=== PATIENT | female | born 1965 ===

== ENCOUNTER 2024-07-31 15:53 | Inpatient (IN) | payer MEDICAID ==
[2024-07-31] VITALS (12 sets, daily range): BP systolic 136–212; BP diastolic 62–117
[~2024-07-31] VITALS: Ht 165.1 cm; Wt 67.6 kg
--- OUTSIDE RECORDS SUMMARY | 2024-07-31 16:00 | XMS ---
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 No recent Security Events currently on file CRITERIA MET - 6 ED Visits in 6 Months - [facility] - 2 Visits in 30 Days CARE PROVIDERS Sarah Prajapati Community Health Worker 12/30/2022-Current PHONE: [phone] -, [facility]ist: Call Center Rn Current [place] PHONE: [phone] -, [facility]- Dentist: Call Center Rn Current [facility] PHONE: [phone] -, [facility]- Dentist: Call Center Rn Current [facility] PHONE: [phone] KEILA HARVEY Physician [place] Operator Current PHONE: [phone] MICHAEL LUTZ Universal Worker Assisted Living/Clinical Pharmacy Technician [facility] TEAM PHONE: [phone] THUAN DORAN [facility] Current PHONE: Unknown On[facility]er has no Care Guidelines for this patient. Góme[facility] VISIT COUNT (12 MO.) 14 [facility] 3 [facility] [address] [facility] TOTAL 19 NOTE: Visits indicate total known visits. ED/UCC VISIT TRACKING (12 MO.) 07/31/2024 15:54 [facility] TYPE: Emergency COMPLAINT: - ABDOMINAL PAIN 07/27/2024 14:57 [facility] TYPE: Emergency COMPLAINT: - FOOT ISSUES 06/25/2024 08:12 [facility] TYPE: Emergency DIAGNOSES: - Noninfective gastroenteritis and colitis, unspecified - Rash and other nonspecific skin eruption - RASH ON BODY 04/26/2024 15:05 [facility] [place]: Emergency DIAGNOSES: - Essential (primary) hypertension - Localized edema - HBP, leg swelling - Hypertension - Leg Swelling 04/22/2024 15:54 [facility] [place] TYPE: Emergency DIAGNOSES: - Localized edema - leg swelling 04/16/2024 19:48 [facility] [place] TYPE: Emergency DIAGNOSES: - Acute kidney failure, unspecified - Adverse effect of other antihypertensive drugs, initial encounter - Essential (primary) hypertension - Hyperkalemia - +covid test and swelling in both legs - Hypertension - Leg Swelling 03/27/2024 11:24 [facility] ([facility] [place] TYPE: Emergency DIAGNOSES: - Blepharochalasis right lower eyelid - Blepharochalasis right upper eyelid - Hordeolum externum right upper eyelid - Eye Pain - eye swelling 03/13/2024 17:35 [facility] [place] ([place]) TYPE: Emergency DIAGNOSES: - Acute kidney failure, unspecified - Acute kidney failure, unspecified - Cellulitis of left lower limb - Cellulitis of right lower limb - Essential (primary) hypertension - facial swelling 03/11/2024 11:41 [facility] [place] ([place]) TYPE: Emergency DIAGNOSES: - Adverse effect of unspecified drugs, medicaments and biological substances, initial encounter - hives - Urticaria 03/06/2024 18:55 [facility] ([facility] [place] TYPE: Emergency DIAGNOSES: - rash on right inner thigh 03/04/2024 18:55 [facility] [place] TYPE: Emergency DIAGNOSES: - Local infection of the skin and subcutaneous tissue, unspecified - Localized edema - Leg Swelling - rt foot swelling 02/25/2024 11:04 [facility] ([place] TYPE: Emergency DIAGNOSES: - Diarrhea, unspecified - Blood In Stool - dark stool 02/23/2024 18:42 [facility] ([place] TYPE: Emergency DIAGNOSES: - Altered Mental Status - poss blood sugar issues 02/13/2024 13:54 [facility] ([place] TYPE: Emergency DIAGNOSES: - Acute kidney failure, unspecified - Diarrhea, unspecified - high bp - Hypertension - Medication Refill 01/24/2024 11:26 [facility] [place] TYPE: Emergency DIAGNOSES: - Hyperkalemia - Other fatigue - Other malaise - bp issues - Diarrhea (Adult) 01/16/2024 12:40 [facility] [place] TYPE: Emergency DIAGNOSES: - blood pressure check - Medical Problem (Re-evaluation) 01/09/2024 12:08 [facility] [place] TYPE: Emergency DIAGNOSES: - Epigastric pain - Hypertensive urgency - Nausea with vomiting, unspecified - Retention of urine, unspecified - abd pain, vomiting, diarrhea - Abdominal Pain - Hypertension 12/19/2023 17:11 [facility] [place] TYPE: Emergency DIAGNOSES: - Other psychoactive substance abuse, uncomplicated - VOMITING TIRED 09/03/2023 22:18 [facility] [place] TYPE: Emergency DIAGNOSES: - Abrasion, left knee, initial encounter - Abrasion, right knee, initial encounter - Contusion of right knee, initial encounter - Dizziness and giddiness - Other psychoactive substance abuse, uncomplicated - Dizziness INPATIENT VISIT TRACKING (12 MO.) 04/16/2024 19:48 [facility] TYPE: Medical Surgical DIAGNOSES: - Acute kidney failure, unspecified - Adverse effect of other antihypertensive drugs, initial encounter - Essential (primary) hypertension - Hyperkalemia - Hypertensive urgency 01/09/2024 12:08 [facility] [place] TYPE: Medical Surgical DIAGNOSES: - Chronic viral hepatitis C - Diarrhea, unspecified - Epigastric pain - Essential (primary) hypertension - Hypertensive urgency - roasterman (current) use of insulin - Nausea with vomiting, unspecified - Retention of urine, unspecified - Type 2 diabetes mellitus with hyperglycemia [email or web address]
[2024-07-31] MEDS ORDERED: INSULIN SYRING1 EA30 (16:41)
[2024-07-31] MEDS ORDERED: NIFEDIPINE ER30 M1 PO (16:41)
[2024-07-31 17:43] LABS: EOSINOPHILS 1.7 % (0-6); HEMATOCRIT 30.4 % (35.0-50.0); HEMOGLOBIN 9.9 g/dL (12.0-18.0); LYMPHOCYTES 13.1 % (24-44); MCH 29.4 (27-36); MCHC 32.7 g/dl (30-36); MCV 90.1 fl (81-99); MONOCYTES 7.2 % (0-12); PLATELET COUNT 362 K/uL (140-440); RBC 3.37 M/ul (4.3-5.7); RDW 16.7 (10.5-15.0)
[2024-07-31 18:09] LABS: ALBUMIN 1.1 g/dL (3.4-5.0); ALBUMIN/GLOBULIN RATIO 0.22 (1.1-2.4); ANION GAP 17.5 (7-21); BILIRUBIN, TOTAL 0.2 mg/dL (0.2-1.0); BUN/CREATININE RATIO 16.91 (6.0-28.6); CALCIUM 8.1 mg/dL (8.5-10.1); CREATININE, SERUM 2.66 mg/dL (0.55-1.02); POTASSIUM 4.5 mmol/L (3.5-5.1); PROTEIN, TOTAL 6.2 g/dL (6.4-8.2)
[2024-07-31] MEDS ORDERED: NIFEdipine XL 30 MG TAB PO ONE ×2 (18:45→19:30)
[2024-07-31] MEDS ORDERED: SILVER SULFADIAZINE 400 GM HOME.PACK TOP ONE (19:15)
[2024-07-31] MEDS ORDERED: GLUCAGON,HUMAN RECOMBINANT 1 MG/ML VIAL SUB-Q PRN (19:30)
[2024-07-31] MEDS ORDERED: DEXTROSE 50% 50 ML SYR IV PRN ×2 (19:30)
[2024-07-31] MEDS ORDERED: SODIUM CHLORIDE 0.9% 1,000 ML IV ONE (19:30)
[2024-07-31] MEDS ORDERED: DEXTROSE 5% 1,000 ML IV PRN (19:30)
[2024-07-31] MEDS ORDERED: IBLOOD GLUCOSE TEST STRIP 1 EA TEST XX PRN (19:30)
[2024-07-31 20:50] LABS: BILIRUBIN, URINE NEGATIVE (negative); BLOOD/HGB, URINE TRACE-I (Negative); KETONE, URINE NEGATIVE (Negative); LEUK ESTERASE, URINE NEGATIVE (negative); NITRITE, URINE NEGATIVE (negative)
[2024-07-31 20:58] LABS: BACTERIA, URINE 1+ /hpf (negative); CRYSTALS, URINE NONE SEEN (0-1+); EPITHELIAL CELLS, URINE SQUAMOUS 1+ /lpf (0-1+)
[2024-07-31 20:59] LABS: CASTS, URINE HYALINE 1+ \\lpf; COLLECTION TYPE, URINE CLEAN CATCH; REFLEX CULTURE, URINE Yes (No)
[2024-07-31] MEDS ORDERED: HEParin SOD (PORCINE) 5,000 UNIT/ML SDV SUB-Q SCH (21:00)
[2024-07-31] MEDS ORDERED: INSULIN LISPRO 100 UNIT/ML ML SUB-Q SCH (21:00)
[2024-07-31] MEDS ORDERED: IBLOOD GLUCOSE TEST STRIP 1 EA TEST XX SCH (21:00)
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
[2024-07-31] MEDS ORDERED: niCARdipine HCL 50 MG in DEXTROSE 5% 250 ML IV SCH (21:30)
[2024-07-31] MEDS ORDERED: SODIUM CHLORIDE 0.9% 1,000 ML IV SCH (21:30)
[2024-07-31] MEDS ORDERED: NICARDIPINE HCL 25 MG/10 ML ONE (21:31)
--- NOTE | 2024-07-31 22:39 | NUR ---
CALL RECEIVED FROM DR. FINNEY. ORDER RECEIVED FOR PATIENT TO NPO AFTER MIDNIGHT. REVIEWED SILVADINE CREAM AND ORDER RECEIVED TO NOT PLACE BUT COVER WOUNDS WITH DRY KERLIX.
[2024-08-01] VITALS (23 sets, daily range): BP systolic 113–159; BP diastolic 58–81
--- NOTE | 2024-08-01 01:51 | NUR ---
FEET AND WOUNDS CLEANSED WITH WOUND CLEANSER, DRIED AND THEN WRAPPED WITH KERLEX GAUZE. PICTURES TAKEN. PT TOLERATED TIHS WELL WITH MINIMAL PAIN. STILL VERY DROWSY AND JUST WANTING TO GO BACK TO SLEEP.
--- NOTE | 2024-08-01 02:30 | NUR ---
RECORDS CLERK IN TO ATTEMPT IV START, COULD NOT GET ONE, ATTEMPT X1, USING ULTRASOUND TO LOOK FOR VEIN. PT TOLERATED WELL.
--- NOTE | 2024-08-01 04:15 | NUR ---
PT USED CALL LIGHT TO SAY SHE NEEDS TO GET UP. REMINDED HER THERE IS A PURWICK IN PLACE AND SHE STATES SHE CANNOT USE IT, SHE IS QUICKLY GETTING HERSELF UP OUT OF BED, WALKS INTO THE BATHROOM WITH SOME PAIN, VOIDS 600ML THEN BACK TO BED, BED ALARM ON.
[2024-08-01 05:49] LABS: BASOPHILS 0.8 % (0-2); EOSINOPHILS 0.1 % (0-6); HEMATOCRIT 30.5 % (35.0-50.0); HEMOGLOBIN 10.1 g/dL (12.0-18.0); LYMPHOCYTES 13.9 % (24-44); MCH 29.6 (27-36); MCHC 33.2 g/dl (30-36); MCV 89.2 fl (81-99); MONOCYTES 6.6 % (0-12); NEUTROPHILS 78.6 % (39-80); PLATELET COUNT 362 K/uL (140-440); RBC 3.42 M/ul (4.3-5.7); RDW 17.1 (10.5-15.0)
[2024-08-01 05:57] LABS: ANION GAP 17.4 (7-21); BUN/CREATININE RATIO 18.26 (6.0-28.6); CALCIUM 8.2 mg/dL (8.5-10.1); CREATININE, SERUM 2.3 mg/dL (0.55-1.02); MAGNESIUM 1.8 mg/dL (1.8-2.4); POTASSIUM 4.4 mmol/L (3.5-5.1)
[2024-08-01] MEDS ORDERED: LACTATED RINGER'S 1,000 ML IV SCH (07:30)
[2024-08-01 07:42] LABS: TSH, 3RD GENERATION 1.553 uIU/mL (0.358-3.740)
[2024-08-01] MEDS ORDERED: OXYCODONE HCL 5 MG TAB PO PRN (08:30)
[2024-08-01] MEDS ORDERED: CEFTRIAXONE/SODIUM CHLORIDE 1 GM/100 ML PIGGYBACK IV SCH (09:00)
[2024-08-01] MEDS ORDERED: NIFEdipine XL 30 MG TAB PO SCH (09:00)
[2024-08-01] MEDS ORDERED: FAMOTIDINE 20 MG/ 2 ML VIAL IV SCH (09:14)
--- NOTE | 2024-08-01 09:17 | NUR ---
DR. FINNEY IN TO SEE PATIENT AND DISCUSS UPCOMING SURGERY TO DEBRIDE LEGS. PT GIVEN 5 MG PO OXYCODONE FOR 6/10 PAIN. PT REPORTS HAVING A PICC LINE IN THE PAST FOR MRSA ON LOWER LEGS. PT REMAINS NPO. ECHO BEING DONE NOW.
--- NOTE | 2024-08-01 09:56 | NUR ---
INTO SEE PATIENT. PATIENT PERSONAL HEALTH INFORMATION REVIEWED. PATIENT STATES "OH GOD" WHEN I SAT DOWN TO DO ASSESSMENT. PATIENT IS CURRENTLY MOVING FROM [place] TO [place]. HOMELESS BUT STATES "I AM OLD AND MOVING IN WITH MY FRIEND LILIAN SHE IS OLD ALSO." LILIAN HAS A HOUSE WITH 7 STEPS DENIES ANY DIFFCULTY DOING IT. ASKED IF SHE HAS A CANE, WALKER, WHEELCHAIR. PATIENT STATES "NO BUT I PROBABLY SHOULD AND I ALSO SHOULD WEAR COMPRESSON STOCKINGS." DENIES OXYGEN OR CPAP. SHE DOES NOT DRIVE. AUNT MARIANA THAT LIVES IN [place] DRIVES HER. STATES SHE WILL DISCHARGE TO LILIAN'S HOUSE IN THE END. PATIENT STATES SHE IS IN THE PROCESS OF GETTING [place] MEDICAID SETUP. ENCOUAGED HER TO CONTINUE AND GAVE HER THE HOMELESS AND ADDICTION RESOURCES PHAMPLET. ASKED IF SHE HAD ANY QUESITIONS OR CONCERNS. PATIENT STATES "I WOULD JUST LIKE YOU TO LEAVE ME ALONE UNTIL AFTER SURGERY." DENIES ANY OTHER CM NEEDS TODAY.
[2024-08-01] MEDS ORDERED: PHARMACY RENAL DOSE ADJUSTMENT 1 DOSE MISC PO SCH (12:00)
--- NOTE | 2024-08-01 13:14 | NUR ---
PT NOT AVAILABLE FOR VISIT. PROVIDED PRAYER.
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
--- NOTE | 2024-08-01 14:10 | NUR ---
UR CLINICAL REVIEW: [facility]- PER [facility] REVIEW MEETS INPT FOR MARCIE AND WOUND MANAGEMENT. CREATINIE 2.66 ON ADMISSION WITH TO TO THE LOWER EXTREMITIES. [facility] INPT 07/31/24 @ 1921 ORDER MATCHES REG CLINICALS FAXED TO [facility] FOR AUTH REVIEW DISCHARGE TO HOME WHEN STABLE. TO OR TODAY FOR I&D 08/03/24
[2024-08-01] MEDS ORDERED: propofoL 200 MG/20 ML VIAL ONE (14:59)
[2024-08-01] MEDS ORDERED: LIDOCAINE HCL 2% 5 ML SDV ONE (14:59)
[2024-08-01] MEDS ORDERED: ondansetron HCL 4 MG/2 ML VIAL ONE (15:08)
--- NOTE | 2024-08-01 15:30 | NUR ---
PATIENT TAKEN TO OR AROUND 1400 FOR DEBRIDEMENT OF LOWER LEGS.
[2024-08-01] MEDS ORDERED: ACETAMINOPHEN 1,000 MG/100 ML VIAL ONE (15:37)
[2024-08-01] MEDS ORDERED: NALOXONE HCL 0.4 MG SYR IV PRN (15:45)
[2024-08-01] MEDS ORDERED: fentaNYL citrate 50 MCG/ML SDV IV PRN (15:45)
[2024-08-01] MEDS ORDERED: droPERidol 5 MG/2 ML VIAL IV PRN (15:45)
[2024-08-01] MEDS ORDERED: IBLOOD GLUCOSE TEST STRIP 1 EA TEST VI PRN (15:45)
[2024-08-01] MEDS ORDERED: ondansetron HCL 4 MG/2 ML VIAL IV PRN (15:45)
--- NOTE | 2024-08-01 16:00 | NUR ---
08/01/24 1600 Fatemeh Rudd 1549-PT ARRIVES TO PACU VIA STRETCHER, PT RESTING SEMI FOWLERS, PT RESPONSIVE TO TACTILE STIMULI BUT CONTINUES TO REST W/ EYES CLOSED. VSS ON RA, RR EVEN AND UNLABORED. 1555-PT AWAKENS ON OWN, PT DENIES PAIN OR NAUSEA, VSS ON RA. PT FALLS BACK TO SLEEP EASILY.
--- NOTE | 2024-08-01 16:48 | NUR ---
PATIENT RETURNED FROM SURGERY/PACU AT 1635. PT AWAKE, BUT SLIGHTLY DROWSY, ANSWERING QUESTIONS AND RATES HER PAIN A 3/10 AT THIS TIME IN HER LEGS. IVF RESTARTED AT 125 ML/HR. ORDERS REC'D PER DR. FINNEY FOR DAILY DRESSING CHANGES BID. DR. FINNEY NOTIFIED OF GRAM STAIN RESULTS VIA PHONE. DR. MURDOCK ALSO CALLED TO UPDATE ON PT'S RETURN AND 1 L LR BOLUS TO BE GIVEN.
[2024-08-01] MEDS ORDERED: LACTATED RINGER'S 1,000 ML IV ONE (17:00)
[2024-08-01] MEDS ORDERED: SEVOFLURANE 250 ML BTL INH ONE (17:18)
--- NOTE | 2024-08-01 19:33 | EKG ---
[facility] [address] [facility] [place], [place] [address] Signed Normal sinus rhythm Nonspecific T wave abnormality Abnormal ECG No previous ECGs available Confirmed by Reece Garcia MD ([id number]) on 08/01/2024 7:33:27 PM Electronically Signed By: REECE GARCIA MD 08/01/241932 PATIENT NAME: YOLANDA HAWLEY Electrocardiogram DATE OF : 69 PHYSICIAN: REECE GARCIA MD REPORT #: [id number] REPORT IS CONFIDENTIAL AND NOT TO BE RELEASED WITHOUT AUTHORIZATION
--- NOTE | 2024-08-01 20:00 | NUR ---
REPORT RECEIVED FROM BARTOLOME VARGHESE. PATIENT RESTING IN BED. REPORTS HER PAIN MEDICATION IS STARTING TO WORK; REQUESTS AND GIVEN WARM BLANKET. REVIEWED POC INCLUDING DRESSING CHANGE. PATIENT VERBALIZED UNDERSTANDING. CALL LIGHT IN REACH.
--- NOTE | 2024-08-01 20:20 | NUR ---
PATIENT REQUESTED SNACKS/FOOD, PATIENT GIVEN HIGH PROTEIN PLUS ENSURE SHAKE AND PUDDING, WILL PROVIDE LUNCH BOX WHEN ARRIVES FROM DIRECTOR OF SUSTAINABLE DESIGN/FLOAT RN.
--- NOTE | 2024-08-01 20:53 | NUR ---
CONFIRMED WITH DR. FINNEY, NO DRESSING CHANGE NEEDED TONIGHT.
[2024-08-01] MEDS ORDERED: SILVER SULFADIAZINE 400 GM HOME.PACK TOP SCH (21:00)
[2024-08-01] MEDS ORDERED: SILVER SULFADIAZINE 400 GM JAR TOP SCH (21:00)
--- NOTE | 2024-08-01 21:21 | NUR ---
ASSESSMENT COMPLETED. PATIENT PLEASEANTLY INTERACTS WITH NURSING STAFF, HOWEVER IS VERY TALKATIVE AND OFF TOPIC; EASILY REDIRECTS TO FOCUS ON ASSESSMENT QUESTIONS. ALERT AND ORIENTED BUT THOUGHT SHE WAS AT [facility], KNEW SHE WAS IN [place] THEN CORRECTED HER LOCATION TO [facility]. REPORTS HER PAIN HAS IMPROVED AFTER LAST DOSE OF PAIN MEDICATION. WHEN ASKED FOR A NUMBERICAL VALUE, SHE STATES "I AM OK". APPEARS RELAXED, NO FROWN OR GRIMACING NOTED. AFEBRILE ALTHOUGH C/O BEING COLD. WARM BLANKETS PROVIDED AND INCREASED THERMOSTAT. NO TACHYCARDIA NOTED ON MONITOR; SINUS RHYTHM IN THE 80S AT REST. SP02 95% RA. RLE DRESSING CDI. LLE DRESSING HAS SOME LIGHT MARTINO/YELLOW DRAINAGE NOTED ANTERIORLY. SMALL AMOUNT OF SEROSANGIUNOUS SHADOWING NOTED ON LEFT 5TH TOE DISTALLY. AGAIN REVIEWED PLAN OF CARE, SAFETY EDUCATION TO INCLUDE USING CALL LIGHT FOR ASSISTANCE WHEN NEEDING TO GET UP. PATIENT VERBALIZED UNDERSTANDING. CALL LIGHT IN REACH, BED EXIT ALARM ON.
--- NOTE | 2024-08-01 23:56 | NUR ---
PATIENT ATE 100% OF SNACK GIVEN. REQUESTS FREQUENT SNACKS. VS CHARTED. PATIENT EXPRESSED DESIRE TO REST. OFFERED BSC BUT PATIENT DENIES NEED TO VOID AT THIS TIME. EDUCATION PROVIDED ON MEASUREING URINE OUTPUT, INFORMED PATIENT SHE WILL NEED TO GET UP AND TRY TO VOID SOON, PATIENT AGREEABLE. CALL LIGHT IN REACH. BED EXIT ALARM ON.
[2024-08-02] VITALS (7 sets, daily range): BP systolic 117–156; BP diastolic 60–104
--- NOTE | 2024-08-02 02:05 | NUR ---
PATIENT RESTING QUIETLY IN BED WITH EYES CLOSED. RESPIRATIONS EVEN AND UNLABORED. HR NOTED TO BE SINUS RHYTHM IN THE 80S ON MONITOR. RR 14. CALL LIGHT IN REACH, BED EXIT ALARM ON.
--- NOTE | 2024-08-02 03:16 | NUR ---
PATIENT USED CALL LIGHT FOR ASSISTANCE UP TO BSC. VOIDED 200ML. PVR BLADDER SCAN SHOWED 326 ML. VS CHARTED. PATIENT REPORTS 5/10 PAIN TO BLE. MEDICATED FOR PAIN PER EMAR. DRESSING NOTED TO BE SATURATED WITH SEROUS DRAINAGE. SANGUINOUS DRAINAGE NOTED AT TOES. UPDATED PATIENT THAT DRESSINGS NEED TO BE CHANGED; WILL ALLOW PAIN MEDICATION TO TAKE EFFECT AND INFORMED PATIENT THIS RN WILL BE BACK TO CHANGE DRESSINGS. FRESH WATER PROVIDED. LUNG SOUNDS CLEAR. PATIENT HAS GENERALIZED NON-PITTING EDEMA IN HER BUE AND FACE. FRESH WATER PROVIDED. CALL LIGHT IN REACH, BED EXIT ALARM ON.
--- NOTE | 2024-08-02 04:53 | NUR ---
BLE DRESSINGS CHANGED FOR SATURATION OF MARTINO TO YELLOW SEROUS DRAINAGE. RIGHT ANTERIOR TOES REQUIRED GENTLE SALINE SOAK TO REMOVE GAUZE SMALL AMOUNT OF BLEEDING NOTED ON ANTERIOR 2ND TO 5TH TOES HOWEVER, QUICKLY STOPPED. CLEANSED WITH CLEAN SALINE. SILVADINE CREAM APPLIED TO OPEN SITES ON BLE. COVERED WITH STERILE 4X4 GAUZE THEN WRAPPED WITH KERLIX. PATIENT TOLERATED WELL.
--- NOTE | 2024-08-02 05:17 | NUR ---
LAB IN ROOM FOR AM DRAW.
[2024-08-02 05:34] LABS: BASOPHILS 1.2 % (0-2); EOSINOPHILS 1.4 % (0-6); HEMATOCRIT 30.7 % (35.0-50.0); HEMOGLOBIN 9.9 g/dL (12.0-18.0); LYMPHOCYTES 18.4 % (24-44); MCHC 32.3 g/dl (30-36); MCV 89.8 fl (81-99); MONOCYTES 13.1 % (0-12); NEUTROPHILS 65.9 % (39-80); PLATELET COUNT 425 K/uL (140-440); RBC 3.41 M/ul (4.3-5.7)
[2024-08-02 05:45] LABS: ANION GAP 15.7 (7-21); BUN/CREATININE RATIO 19.4 (6.0-28.6); CALCIUM 8.1 mg/dL (8.5-10.1); CREATININE, SERUM 2.37 mg/dL (0.55-1.02); MAGNESIUM 1.7 mg/dL (1.8-2.4); POTASSIUM 4.7 mmol/L (3.5-5.1)
--- NOTE | 2024-08-02 06:10 | NUR ---
PATIENT UP TO [facility] TO VOID 100ML. ONCE BACK IN BED, DRESSINGS NOTED TO HAVE SMALL AMOUNT OF BRIGHT RED BLOOD TO MIDDLE DISTAL SIDE OF FOOT ON THE LEFT AND ANTERIOR LEFT TOES. ON THE RIGHT SMALL AMOUNT OF BLOOD SHADOWING ANTERIOR 4TH AND 5TH TOES. TOLERATED ACTIVITY WELL. EDUCATION PROVIDED ON NOT PUTTING TOO MUCH PRESSURE ON TOES. PATIENT REPORTED SHE PUSHED DOWN WITH HER FEET IN AN ATTEMPT TO PUT PRESSURE ON HER ABDOMEN TO VOID. PATIENT VERBALIZED UNDERSTANDING. CALL LIGHT IN REACH.
--- NOTE | 2024-08-02 08:15 | NUR ---
ALERT AND ORIENTED IN BED. STATES SHE IS AIMING TO STAY SOBER SO SHE CAN GO TO [place]. STATES SHE HAS ALL THE CONTACT INFORMATION SHE NEEDS FOR ASSISTANCE, NO FURTHER NEEDS. STATES HER PLAN IS TO GO HOME WITH HER FRIEND SNOW WHEN DISCHARGED. NO OTHER CM NEEDS AT THIS TIME. PROVIDED HER BELONGINGS SO CAN GET HER CELL PHONE AND MAKE CALLS
[2024-08-02] MEDS ORDERED: AMLODIPINE BESYLATE 2.5 MG TAB PO SCH (09:00)
[2024-08-02] MEDS ORDERED: MAGNESIUM SULFATE 2 GM/50 ML BAG IV ONE (09:00)
--- NOTE | 2024-08-02 10:04 | NUR ---
DR. FINNEY IN TO SEE PATIENT AND DISCUSS PLAN OF CARE. PATIENT WILL NEED BID DRESSING CHANGES FOR 2 WEEKS TO ADDRESS HER SCALDED LEGS. PT TRANSFERRED TO ROOM 114 ON MED/SURG AND REPORT GIVEN TO CHIRAG. PT WORKED WITH PHYS THERAPY AND OT TODAY.
--- NOTE | 2024-08-02 10:36 | NUR ---
PT TO FLOOR IN CHAIR WITH THIS RN AND STUDENT RN BRADEN. PT SAT IN CHAIR FOR A FEW MINUTES THEN ASSISTED BACK TO BED. TOLERATED WELL. PT DRESSINGS JUST STARTING TO SEEP, WILL CHANGE SHORTLY. PT TALKATIVE AND RATES PAIN 2\10. MG INFUSING. IV PATENT. CALL LIGHT IN REACH.
--- NOTE | 2024-08-02 10:53 | NUR ---
VISITED DURING SPIRITUAL CARE ROUNDS. PT SITTING UP IN BED, MUTED TELEVISION FOR CONVERSATION WITH HOSPICE MASSAGE THERAPIST, REQUESTED PRAYER. HOSPICE MASSAGE THERAPIST PROVIDED SUPPORTIVE PRESENCE, HOSPITALITY, PRAYER. PT BECAME TEARFUL, REQUESTED FOLLOW-UP VISIT. HOSPICE MASSAGE THERAPIST WILL FOLLOW-UP CIRCUMSTANCES ALLOW.
--- NOTE | 2024-08-02 11:31 | NUR ---
MED REC COMPLETE
--- NOTE | 2024-08-02 12:33 | NUR ---
NURSE ASKED PATIENT TO GET BLOOD SUGAR, PATIENT WAS IN BED AT THIS TIME. ASSEMBLER TUBING CHARTED. CALL LIGHT WITH IN REACH, NOTHING ELSE NEEDED AT THIS TIME.
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
--- NOTE | 2024-08-02 12:48 | NUR ---
PT UP TO BSC WO DIFF. DENIES PAIN IN LEGS. LOVED LUNCH AND THANKFUL FOR THE HELP HERE.
--- NOTE | 2024-08-02 13:30 | NUR ---
PT DRESSING CHANGED WITH ASSISTANCE OF RN STUDENT BRADEN. PT TOLERATED WELL AND DENIED HAVING MUCH PAIN. WOUND BASES WNL, WITH MOSTLY SEROUS DRAINAGE. CHANGED PER ORDER.
--- NOTE | 2024-08-02 15:54 | NUR ---
PATIENT IN BED AT THIS TIME. CHILDREN'S INSTITUTION ATTENDANT ASSISTED PATIENT TO BEDSIDE COMMODE AND THEN BACK TO BED. CALL LIGHT WITHIN REACH, NO FURTHER NEEDS AT THIS TIME.
--- NOTE | 2024-08-02 16:07 | NUR ---
OT was able to speak with pt and her friend, Shana. Shana phone [phone]. Pt may go home with Shana as long as she stays clean. I spoke with Emily and she plans to dc to home with Shana when cleared by
--- NOTE | 2024-08-02 16:28 | NUR ---
PT IN BED RESTING ON SIDE. STATES SHE WILL GET IN CHAIR AGAIN FOR DINNER.
--- NOTE | 2024-08-02 17:09 | NUR ---
PATIENT IN BED AT THIS TIME. SERVICE DELIVERY MANAGER CHARTED VITALS AND I&O'S. CALL LIGHT WITHIN REACH, NO FURTHER NEEDS AT THIS TIME.
--- NOTE | 2024-08-02 17:27 | NUR ---
PT CALLED FOR PAIN MEDICATION. GIVEN OXY FOR 3\10 THROBBING PAIN. BACK TO BED AFTER BEING UP IN CHAIR FOR DINNER.
--- NOTE | 2024-08-02 19:07 | NUR ---
SHIFT REPORT RECEIVED FROM DAYSHIFT BARTOLOME BEARD, pt RESTING IN BED WITH EYES CLOSED. ON RA, RR EVEN AND UNLABORED. NO DISTRESS NOTED. CALL LIGHT IN REACH.
--- NOTE | 2024-08-02 20:00 | NUR ---
RADHA ARIAS IN ROOM, pt RECENTLY BACK IN BED AFTER USING THE RESTROOM, BLE DRESSING REMAINS IN PLACE. pt ALLY ADDITIONAL NEEDS OR CONCERNS, CALL LIGHT IN REACH.
[2024-08-02] MEDS ORDERED: FAMOTIDINE 20 MG TAB PO SCH (21:00)
--- NOTE | 2024-08-02 21:18 | NUR ---
ASSESSMENT COMPLETE, SCHEDULED PEPCID GIVEN-SEE EMAR. IV SITE WNL, FLUSHES EASILY AND SALINE LOCKED. pt A/O X4, VSS. DRESSING TO BLE REMAIN INTACT, ELEVATED IN BED. BILATERAL FINGERS SHI IN COLOR WITH TRACE EDEMA-BASELINE PER pt. HX METH USE, CLEAN SINCE DECEMBER OF THIS YEAR PER SHIFT REPORT. LUNG SOUNDS CLEAR, pt DENIES CHEST PAIN OR SOB. BED ALARM ON FOR SAFETY AND CALL LIGHT IN REACH.
--- NOTE | 2024-08-02 22:00 | NUR ---
pt RESTING IN BED, ON RA. RR EVEN AND UNLABORED. NO DISTRESS NOTED. CALL LIGHT IN REACH. BED ALARM ON FOR SAFETY.
--- NOTE | 2024-08-02 23:30 | NUR ---
with help from electrical discharge machine operator, wound dressings changed to ble as ordered. pt tolerated well, reported pain 3/10 following dressing change-prn pain medication given-see emar. strong pedal pulse noted and skin pink and warm to the touch. bed alarm resumed and call light in reach.
[2024-08-03] VITALS (9 sets, daily range): BP systolic 146–160; BP diastolic 69–84
--- NOTE | 2024-08-03 03:30 | NUR ---
rounded on pt, pt awake and resting in bed. on ra. no needs or concerns verbalized when asked, call light in reach and bed alarm on for safety.
--- NOTE | 2024-08-03 04:56 | NUR ---
rounded on pt, pt recently oob to void-shadowing noted to gauze dressing to posterior portion of lle, reinforced with abd pad and new no slip cok in place-cut for easier fit-foam chargerbryan corado updated and aware. ble remains elevated in bed with pillows, no acute changes to focused assessment. bed alarm on and call light in reach. iv site wnl, remains saline locked. no additional needs or concerns verbalized, prn pain medication given for reported throbbing pain-see emar.
[2024-08-03 06:04] LABS: BASOPHILS 1.2 % (0-2); EOSINOPHILS 2.5 % (0-6); HEMOGLOBIN 8.8 g/dL (12.0-18.0); LYMPHOCYTES 24.9 % (24-44); MCH 29.2 (27-36); MCHC 32.6 g/dl (30-36); MCV 89.5 fl (81-99); MONOCYTES 16.3 % (0-12); NEUTROPHILS 55.1 % (39-80); PLATELET COUNT 368 K/uL (140-440); RBC 3.02 M/ul (4.3-5.7); RDW 16.8 (10.5-15.0)
[2024-08-03 06:07] LABS: ANION GAP 16.1 (7-21); BUN/CREATININE RATIO 23.87 (6.0-28.6); CALCIUM 7.8 mg/dL (8.5-10.1); CREATININE, SERUM 2.22 mg/dL (0.55-1.02); POTASSIUM 5.1 mmol/L (3.5-5.1)
--- NOTE | 2024-08-03 06:16 | NUR ---
forest engineer recently brought pt coffee, asking when prn pain medication is available-pt educated that prn pain medication next available at approx 0830. pt verbalized understanding, no distress noted. ble remain elevated in bed. call light in reach.
--- NOTE | 2024-08-03 06:46 | NUR ---
call light answered, pt up sba and voided 200 mls and back to bed-ble elevated in bed. bed alarm resumed and call light in reach.
--- NOTE | 2024-08-03 07:30 | NUR ---
REPORT RECEIVED RFOM CANE FLUME FEEDING MACHINE OPERATOR RN. PATIENT RESTING IN BED. DRESSINGS TO BLLE REMAIN CDI PATIENT DENIES ANY NEEDS AT THIS TIME. VERIFIED WOUND DRESSINGS WITH CANE FLUME FEEDING MACHINE OPERATOR RN. PATIENT WITH NO FURTHER NEEDS CALL LIGHT WITHIN REACH.
[2024-08-03 07:55] LABS: TSH, 3RD GENERATION 3.129 uIU/mL (0.358-3.740)
--- NOTE | 2024-08-03 08:13 | NUR ---
PATIENT IN BED AT THIS TIME. REAL ESTATE ACQUISITION ANALYST WENT INTO PATIENTS ROOM FOR HOURLY ROUNDS. CALL LIGHT WITHIN REACH, NO FURTHER NEEDS AT THIS TIME.
[2024-08-03] MEDS ORDERED: CEFTRIAXONE SODIUM 1 GM VIAL IV ONE (08:18)
--- NOTE | 2024-08-03 08:33 | NUR ---
AM MEDICATIONS ADMINSTERED. IV SITE PATENT AND WNL. LUNG SOUNDS CLEAR OVER DIM. HEART SOUNDS NOTED WITH MURMUR LIKE SOUNDS. PATIENT DENIES ANY SOB AT THIS TIME. BOWEL TONES ACTIVE. DRESSING TO BLLE REMAINS IN PLACE. NO NEW SHADOWNING NOTED AT THIS TIME. BILATERAL PEDAL PULSES PALPABLE. PATIENT ASSISTED TO BSC WITH 1 PA STAND BY ASSIST. VOID IN COMODE. URINE SAMPLE OBTAINED. PATIENT ASSISTED BACK TO BE BY CITY DRIVER STAFF. NO FURTHER NEEDS CALL LIGHT WITHIN REACH.
[2024-08-03] MEDS ORDERED: CEFTRIAXONE SODIUM 1 GM in SODIUM CHLORIDE 0.9% 100 ML IV SCH (09:00)
--- NOTE | 2024-08-03 09:18 | NUR ---
PATIENT IN BED AT THIS TIME, VITALS WERE ALREADY CHARTED. RELAY ENGINEER CHARTED I&O'S, CALL LIGHT WITH IN REACH. NOTHING ELSE NEEDED AT THIS TIME.
--- NOTE | 2024-08-03 10:12 | NUR ---
PRN ADMINSTERED PRIOR TO WOUND CARE TO BLLE. PATIENT ALLY ANY FURTHER NEEDS. IV ABX COMPLETED. NO FURTHER NEEDS CALL LIGHT WITHIN REACH.
--- NOTE | 2024-08-03 10:27 | NUR ---
CASE MANAGEMENT IN ROOM; SHORT VISIT TO LEAVE REQUESTED GUIDEPOST. PROVIDED PRAYER.
--- NOTE | 2024-08-03 11:00 | NUR ---
Spoke with Emily and she cont. to plan on going home with Shana. Pt was disussed in AM meeting and unclear if she will have wound care at the hospital or at home. When I spoke with the pt she would like to return to the hospital for dressing changes. I spoke with Dr. Klein and he wrote the orders. I spoke with Gracie Murrieta in DS and she states they are able to complete BID dressing changes x 2 weeks. Pt and I discussed and she feels this is best as dressing supplies will be provided and Dr. Klein will also be able to check her wounds. We called her friend, Shana, and she states she is not working and willing to bring Emily in 2x a day for the 2 weeks. Pt does not plan on remaining in [place]. She will return to [employer] in the next few weeks as she plans on starting college. She does not want to change from [place] Medicaid to [facility]HP. Fernando from called and spoke with [place] [employer] and downloaded the form the request auth for wound care in [place]. Form completed and faxed with pts chart to [employer] to [phone]. Requested urgent auth as pt may dc tomorrow.
--- NOTE | 2024-08-03 11:24 | NUR ---
BARTOLOME BILLY IN WITH STUDENT NURSE AND PRIMARY NURSE TO COMPLETED WOUND CARE. IN TO SEE WOUND DURING DRESSING CHANGE.
[2024-08-03] MEDS ORDERED: NIFEdipine XL 30 MG TAB PO SCH (13:00)
--- NOTE | 2024-08-03 13:22 | NUR ---
SCHEDULED MEDICATIONS ADMINSTERED. OT IN ROOM WITH PATIENT AT THIS TIME. DRESSINGS TO BLLE CDI. PATIENT DENIES ANY NEEDS AT THIS TIME. CALL LIGHT WITHIN REACH. OT REMAINS WITH PATIENT.
--- NOTE | 2024-08-03 14:26 | NUR ---
CONSULT RECEIVED FOR NUTRITION EDUCATION FOR HIGH CALORIE/HIGH PROTEIN DIET FOR HOME. PATIENT IS SITTING UP IN THE RECLINER WATCHING TV. SHE STATES SHE ATE HARD BOILED EGGS AND TUNA FISH SANDWICHES FOR ABOUT A MONTH AT ANOTHER FACILITY AND HER A1C CAME DOWN TO 5.7% FROM 6.9%. SHE PLANS TO D/C TO HER FRIEND'S HOUSE. PATIENT IS AWARE OF THE IMPORTANCE OF GOOD NUTRITION AND CONSUMING MORE PROTEIN TO HELP HER BURN WOUNDS HEAL. I EXPLAINED THAT SHE NEEDS TO AIM FOR 85-113 GM PROTEIN EVERY DAY. SHE HOPES TO BE ABLE TO BUY PROTEIN DRINKS LIKE THE ENSURE MAX PROTEIN SHE IS DRINKING BID HERE. I EXPLAINED THAT THE EQUATE HIGH PROTEIN PERFORMANCE SHAKE IS THE SAME ENSURE MAX PROTEIN BUT IT WILL BE CHEAPER. I ALSO REMINDED HER WHICH FOODS CONTAIN PROTEIN. SHE HAS NO TEETH SO NEEDS SOFTER ITEMS, NO NUTS. SHE LIKES A VARIETY OF FOODS, SHE IS NOT PICKY. SHE DRINKS MILK, LIKES COTTAGE CHEESE, MEATS, FISH, EGGS, CHEESE, YOGURT, ETC. SHE DOESN'T HAVE ANY QUESTIONS OR CONCERNS AT THIS TIME. SHE HAS GOOD UNDERSTANDING. WITH HER GOOD APPETITE AND HER FRIEND'S HELP, SHE SHOULD DO WELL. FOLDER OF INFORMATION PROVIDED. WILL CONTINUE 60 GM CONS CARB DIET WITH DOUBLE PORTIONS OF PROTEIN AND ENSURE MAX PROTEIN BID WITH BREAKFAST AND DINNER. PATIENT AT LOW NUTRITION RISK AT THIS TIME. RD TO FOLLOW UP IN 7-10 DAYS IF STILL HERE.
--- NOTE | 2024-08-03 14:28 | NUR ---
UR CONCURRENT REVIEW: MCG-PER CONCURRENT MCG REVIEW DOES NOT MEET STAGE 2 GL DUE TO ONGOING NEED FOR WOUND CARE. MILKA ARCHULETA INPT 07/31/24 @ 1921 AUTH REF# [id number]. UPDATED CLINICALS FAXED TO [facility]. DISCHARGE TO HOME PENDING OUTPATIENT WOUND CARE ARRANGEMENT. AWAITING PRIOR AUTH
--- NOTE | 2024-08-03 15:30 | NUR ---
BURLAP SPREADER STAFF IN ROOM WITH PATIENT AT THIS TIME. NO FURTHER NEEDS CALL LIGHT WITHIN REACH.
--- NOTE | 2024-08-03 15:48 | NUR ---
PATIENT WAS IN BED AT THIS TIME AND NEEDED ASSISTANCE TO THE COMMODE. PATIENT HAS A MEDIUM SIZE BM. AGRICULTURAL SCIENTIST GOT FRESH WATER AND WARM BLANKET FOR PATIENT. THEN ASSISTED PATIENT BACK TO BED.
--- NOTE | 2024-08-03 17:16 | NUR ---
SS INSULIN GIVEN. PATIENT RESTING IN BED. DINNER SET UP AT BEDSIDE. PATIENT DENNIES ANY FURTHER NEEDS. DRESSINGS TO BLLE REMAIN CDI. NO NOTED SHADOWNING ON DRESSINGS AT THIS TIME. CALL LIGHT WITHIN REACH.
--- NOTE | 2024-08-03 18:13 | NUR ---
PATIENT IN BED AT THIS TIME, MILIEU COORDINATOR CHARTED VITALS AND I&O'S. CALL LIGHT WITH IN REACH NOTHING ELSE NEEDED AT THIS TIME.
--- NOTE | 2024-08-03 18:19 | NUR ---
PATIENT RESTING IN BED WITH EYES CLOSED. RESPIRATIONS EVEN AND UNLABORED. RN NOTIFIED OF LOW URINE OUTPUT FROM GEOTHERMAL ELECTRICAL ENGINEER STAFF. PATIENT URINE OUTPUT 550 FOR THIS SHIFT. RN OFFERED TO ASSIST PATIENT TO BSC TO TRY AND VOID. PATIENT NOT WANTING TO GET OUT OF BED AT THIS TIME TO VOID. NO FURTHER NEEDS. CALL LIGHT WITHIN REACH.
--- NOTE | 2024-08-03 19:34 | NUR ---
REPORT RECEIVED FROM DAY SHIFT RN. PATIENT RESTING IN BED. DENIES NEEDS AT THIS TIME. CALL LIGHT IN REACH.
--- NOTE | 2024-08-03 19:52 | NUR ---
CALL LIGHT ANSWERED. PATIENT UP TO BSC WITH MINIMAL SBA TO VOID. PATIENT BACK TO BED. VS AND I&Os OBTAINED AND RECORDED. PATIENT HAS NO FURTHER NEEDS. BED ALARM ON. CALL LIGHT IN REACH.
--- NOTE | 2024-08-03 20:26 | NUR ---
PATIENT RESTING IN CHAIR. VS AND I&Os OBTAINED AND RECORDED. SCHEDULED MEDICATION ADMINISTERED, SEE EMAR. ASSESSMENT COMPLETE. DIMINISHED LUNG SOUNDS IN BILAT LOWER LUNGS. PATIENT HAS NO FURTHER NEEDS AT THIS TIME. CALL LIGHT IN REACH. DR MURDOCK IN ROOM TO ASSESS PATIENT.
--- NOTE | 2024-08-03 21:54 | NUR ---
PATIENT RESTING IN BED. SCHEDULED MEDICATION ADMINISTERED. BS OBTAINED AND RECORDED. BLE DRESSING CHANGES COMPLETED PER ORDER. PATIENT KEILA WELL. PATIENT REPORTS 6/10 LLE PAIN AFTER DRESSING CHANGE. PRN PAIN MEDICATION ADMINISTERED PER PATIENT REQUEST. PATIENT HAS NO FURTHER NEEDS. BED ALARM ON. CALL LIGHT IN REACH.
--- NOTE | 2024-08-03 23:57 | NUR ---
PATIENT RESTING IN BED WITH EYES CLOSED. RESPIRATIONS EVEN AND UNLABORED. CALL LIGHT IN REACH.
[2024-08-04] VITALS (10 sets, daily range): BP systolic 133–150; BP diastolic 67–79
--- NOTE | 2024-08-04 01:09 | NUR ---
CALL LIGHT ANSWERED. PATIENT UP TO BSC WITH MINIMAL SBA TO VOID. PATIENT BACK TO BED. PATIENT HAS NO FURTHER NEEDS. CALL LIGHT IN REACH. BED ALARM ON.
--- NOTE | 2024-08-04 02:41 | NUR ---
CALL LIGHT ANSWERED. PT NEEDED TO USE BATHROOM. CAN 1PA WITH FWW TO BATHROOM. PT VOIDED AND ASSISTED BACK TO BED. PT STATES NO FURTHER NEEDS AT THIS TIME. CALL LIGHT WITHIN REACH.
--- NOTE | 2024-08-04 05:14 | NUR ---
CALL LIGHT ANSWERED. PATIENT UP TO BSC WITH MINIMAL SBA TO VOID. PATIENT BACK TO BED. VS AND I&Os OBTAINED AND RECORDED. PATIENT BLE DRESSING C/D/I WITH MINIMAL DRAINAGE. PATIENT DENIES FURTHER NEEDS. BED ALARM ON. CALL LIGHT IN REACH.
[2024-08-04 05:52] LABS: BASOPHILS 1.3 % (0-2); EOSINOPHILS 3.1 % (0-6); HEMOGLOBIN 8.7 g/dL (12.0-18.0); LYMPHOCYTES 27.6 % (24-44); MCHC 32.3 g/dl (30-36); MCV 89.9 fl (81-99); MONOCYTES 13.9 % (0-12); NEUTROPHILS 54.1 % (39-80); PLATELET COUNT 378 K/uL (140-440); RDW 16.4 (10.5-15.0)
[2024-08-04 06:03] LABS: ANION GAP 17.3 (7-21); BUN/CREATININE RATIO 25.22 (6.0-28.6); CALCIUM 7.9 mg/dL (8.5-10.1); CREATININE, SERUM 2.18 mg/dL (0.55-1.02); POTASSIUM 5.3 mmol/L (3.5-5.1)
--- NOTE | 2024-08-04 06:34 | NUR ---
MD UPDATED VIA TELEPHONE ON PATIENT CRITICAL LAB VALUE. MD ALSO UPDATED ON SODIUM AND POTASSIUM LAB VALUES. NO NEW ORDERS AT THIS TIME.
--- NOTE | 2024-08-04 07:25 | NUR ---
REPORT RECEIVED FROM PRESS TENDER LONG GOODS RN. PATIENT RESTING IN BED AWAKE. DRESSINGS TO BLLE REMAIN CDI. NOTED SOME SHADOWING TO DRESSING ON RLE. PATIENT REQUESTING COFFEE. COFFEE GIVEN. DENIES ANY FURTHER NEEDS CALL LIGHT WITHIN REACH.
[2024-08-04] MEDS ORDERED: CEFTRIAXONE SODIUM 1 GM VIAL IV ONE (08:42)
--- NOTE | 2024-08-04 08:45 | NUR ---
PATIENT RESTING IN BED. BREAKFAST AT BEDSIDE. IV SITE PATENT IV ABX STARTED. VSS. AM MEDICATIONS ADMINSTERED. LUNG SOUNDS CTA IN UPPER LOBES DIMINISHED LOWER LOBES. BOWEL TONES ACITVE X 4 QUADRANTS. DRESSINGS TO BLLE INTACT WITH NOTED SHADOWNING OF DRAINAGE TO RLE. NO FURTHER NEEDS AT THIS TIME. CALL LIGHT WITHIN REACH.
[2024-08-04] MEDS ORDERED: SODIUM BICARBONATE 650 MG TAB PO SCH (09:00)
[2024-08-04] MEDS ORDERED: SODIUM ZIRCONIUM CYCLOSILICATE 10 GM PACK PO ONE (09:00)
--- NOTE | 2024-08-04 09:45 | NUR ---
RADAR SIGNAL PROCESSING ENGINEER IN ROOM WITH PATIENT. PATIENT REQUESTING CHICKEN BROTH. CHICKEN BORTH GIVEN. NO FURTHER NEEDS CALL LIGHT WITHIN REACH.
--- NOTE | 2024-08-04 09:45 | NUR ---
Spoke with Emily. She denies needs. Will dc tomorrow and will return bid to DS for wound care. Friend, Shana, has picked up a walker for pt. Pt denies other needs and plans on dc tomorrow.
--- NOTE | 2024-08-04 10:40 | NUR ---
IN ROOM WITH PATIENT AT THIS TIME. IV ABX FINISHED. IV SITE REMAINS WNL. DENIES ANY FURTHER NEEDS. CALL LIGHT WITHIN REACH.
--- NOTE | 2024-08-04 10:40 | NUR ---
TALKED WITH PATIENT FRIEND SNOW ([phone]) WILL BE THE ONE PICKING HER UP AT DISCHARGE AND TAKING HER TO HER HOUSE. [address] [address].
[2024-08-04] MEDS ORDERED: FUROSEMIDE 40 MG/4 ML VIAL IV ONE (10:45)
--- NOTE | 2024-08-04 10:55 | NUR ---
ANGÉLICA AT [place] [employer] CALLED. SENT PAPERWORK OFF FOR WOUND CARE. WILL FAX US IF IT WAS ACCEPTED OR DECLINED.
--- NOTE | 2024-08-04 10:59 | NUR ---
Patient called requesting assistance to BSC. Returned to bed once done. Bed alarm reset.
--- NOTE | 2024-08-04 11:42 | NUR ---
RN IN ROOM WITH STUDENT NURSE. PATIENT RESTING IN BED. SCHEDUELD MEDICATION ADMINSTERED. BLOOD SUGAR OBTAINTED. PATIENT DENIES ANY FURTHER NEEDS. CALL LIGHT WITHIN REACH.
--- NOTE | 2024-08-04 12:13 | NUR ---
PATIENT SITTING UP IN RECLINER AT THIS TIME. REPORTS PAIN TO BLLE. PRN ADMINSTERED. LUNCH SET UP FOR PATIENT. DENEIS ANY FURTHER NEEDS. CALL LIGHT WITHIN REACH.
[2024-08-04 12:52] LABS: OSMOLALITY 283 mOsm/kg (280-303)
--- NOTE | 2024-08-04 13:47 | NUR ---
WOUND CARE COMPLETED TO BLLE. PATIENT TOLLERATED WELL. PATIENT AMBULATED TO BATHROOM WITH VOID FOR 300MLS. PATIENT REPORTS PAIN LEVEL IS 3/10 AT THIS TIME. DENIES NEED FOR PAIN MEDICATIONS. NOTED EDEMA TO BLLE IN THIGHS AND BILATERAL HIPS +1 EDEMA NOTED. PATIENT DENIES ANY FURTHER NEEDS CALL LIGHT WITHIN REACH.
--- NOTE | 2024-08-04 13:52 | NUR ---
Patient returned to bed after sitting in their chair for lunch. Clean chucks placed under legs. Call light and personal items are in reach. No other cares were requested.
--- NOTE | 2024-08-04 14:10 | NUR ---
PATIENT RESTING IN BED. DENIES ANY NEEDS AT THIS TIME. CALL LIGHT WITHIN REACH.
--- NOTE | 2024-08-04 15:15 | NUR ---
ORTHOTICS ASSISTANT STAFF IN ROOM WITH PATIENT AT THIS TIME.
--- NOTE | 2024-08-04 16:00 | NUR ---
Received a call from Dr. Fatemeh Pollard, from [place] [employer]. She is seeking further information regarding this pt. She is authing the 2 weeks of wound care, but is concerned where pt is staying and what her needs will be. Updated pt is staying with friend, Shana, and gave her the phone number and address. Also updated we discussed helping pt switch to [facility], but pt did not want this as she plans on returning to [place] in the next few weeks. Dr. Pollard asks if we have other needs, I requested the auth number. She states she has just completed the auth and it will need to go through nursing and they will fax us auth. tomorrow. Updated, plan is for this pt to de tomorrow. She states she has authed all two weeks of wound care and the s visits.
--- NOTE | 2024-08-04 17:25 | NUR ---
PATIENT RESTING IN RECLINER. EATING DINNER AT THIS TIME. NO SS INSULIN NEEDED AT THIS TIME. PATIENT REPORTS HER PAIN IS " NOT BAD AT ALL." DRESSINGS TO BLLE REMAIN CDI. NO FURTHER NEEDS CALL LIGHT WITHIN REACH.
--- NOTE | 2024-08-04 18:20 | NUR ---
PATIENT RESTING IN BED PLAYING GAMES ON PHONE. DENIES ANY NEEDS AT THIS TIME. CALL LIGHT WITHIN REACH.
--- NOTE | 2024-08-04 19:40 | NUR ---
REPORT RECEIVED FROM BARTOLOME HODGES. PT SLEEPING SOUNDLY ON RIGHT SIDE. CONTACT PRECAUTIONS IN PLACE.
--- NOTE | 2024-08-04 20:46 | NUR ---
call light answered, vs and i&o's collected. fresh tea provided per pt request, approx 300mls-pt on fluid restriction. bed alarm on and call light in reach, primary rn made aware.
--- NOTE | 2024-08-04 21:15 | NUR ---
PT AWAKE, RESTING IN BED. VSS. ASSISTED PT TO BR W/ SBA AND FWW. VOIDS WNL. REPORTS BLE PAIN /, PT MEDICATED W/ PRN OXYCODONE. PT SLIGHTLY ANXIOUS AND RAMBLING SPEECH. LSC DIM TO BASES. HRR W/ MURMUR. BTA. LFA IV WNL. DRSGS TO BLE CDI. WILL CHANGE DRSGS AFTER PAIN MED HAS BECOME EFFECTIVE. PT REPORTS N/T TO ALL 4 EXTREMITIES, UNCHANGED FROM BASELINE. BLE EDEMA. BG WNL, NO SLIDING SCALE INSULIN REQUIRED. CALL LIGHT WITHIN REACH.
--- NOTE | 2024-08-04 22:00 | NUR ---
ATTEMPTED TO CHANGE BLE DRSGS, PT REFUSED. REPORTS SHE WAS RESTING AND WANTING TO MEDITATE. PT INSTRUCTED TO CALL RN WHEN READY FOR DRSG CHANGE. WILL ATTEMPT AGAIN.
--- NOTE | 2024-08-04 22:45 | NUR ---
PT SLEEPING SOUNDLY ON LEFT SIDE. APPEARS COMFORTABLE. CONTACT PRECAUTIONS CONTINUE.
--- NOTE | 2024-08-04 23:48 | NUR ---
PT ALLOWED BLE DRSGS TO BE CHANGED. BLE W/ MULTIPLE RAW OPEN AREAS W/ MINIMAL SEROSANGUINOUS DRNG. BLE CLEANSED W/ WOUND CLEANSER, SILVADENE CREAM APPLIED TO OPEN AREAS AND COVERED W/ GUAZE. BLE WRAPPED W/ KERLIX AND NON SKID SOCKS APPLIED. PT MUMBLING THROUGHOUT, DID NOT COMPLAIN OF ANY PAIN.
[2024-08-05] VITALS (9 sets, daily range): BP systolic 128–153; BP diastolic 65–80
--- NOTE | 2024-08-05 00:42 | NUR ---
PT SLEEPING SOUNDLY. APPEARS COMFORTABLE.
--- NOTE | 2024-08-05 01:17 | NUR ---
CALL LIGHT ANSWERED. PT STATED THE NEED TO USE BATHROOM. INSPECTOR INSULATION SBA WITH FWW TO BATHROOM. PT VOIDED AND ASSISTED BACK TO BED. PT STATES NO FURTHER NEEDS AT THIS TIME. CALL LIGHT WITHIN REACH.
--- NOTE | 2024-08-05 01:38 | NUR ---
PT CALLED TO REPORT EMESIS. 100cc NOTED. DIET JUSTUS BOSTON PROVIDED. NO FURTHER NEEDS AT THIS TIME.
--- NOTE | 2024-08-05 02:42 | NUR ---
PT AWAKE, REQUESTING HOT CHOCOLATE. PT ACCEPTED OFFER OF PUDDING INSTEAD R/T FLUID RESTRICTION.
--- NOTE | 2024-08-05 04:13 | NUR ---
CALL LIGHT ANSWERED. PT NEEDED TO USE BATHROOM. ADMIN PROG COORD 1PA TO BATHROOM WITH FWW. PT VOIDED AND ASSISTED BACK TO BED. PT STATES NO FURTHER NEEDS AT THIS TIME. CALL LIGHT WITHIN REACH.
[2024-08-05 05:31] LABS: BASOPHILS 1.4 % (0-2); EOSINOPHILS 3.3 % (0-6); HEMATOCRIT 24.5 % (35.0-50.0); LYMPHOCYTES 24.2 % (24-44); MCH 28.9 (27-36); MCHC 32.8 g/dl (30-36); MCV 88.1 fl (81-99); MONOCYTES 12.2 % (0-12); NEUTROPHILS 58.9 % (39-80); PLATELET COUNT 469 K/uL (140-440); RBC 2.78 M/ul (4.3-5.7); RDW 16.1 (10.5-15.0)
[2024-08-05 05:44] LABS: ANION GAP 15.9 (7-21); BUN/CREATININE RATIO 24.44 (6.0-28.6); CALCIUM 8.1 mg/dL (8.5-10.1); CREATININE, SERUM 2.25 mg/dL (0.55-1.02); POTASSIUM 4.9 mmol/L (3.5-5.1)
--- NOTE | 2024-08-05 05:53 | NUR ---
MILL WORK OBTAINED VITALS AND I&O. PT STATES NO NEEDS AT THIS TIME. CALL LIGHT WITHIN REACH.
--- NOTE | 2024-08-05 06:27 | NUR ---
CALL LIGHT ANSWERED. PT NEEDED TO USE BATHROOM. OVERHEAD IRRIGATOR 1PA TO BATHROOM WITH FWW. PT VOIDED AND ASSISTED BACK TO BED. PT STATES NO NEEDS AT THIS TIME. CALL LIGHT WITHIN REACH.
--- NOTE | 2024-08-05 06:38 | NUR ---
PT RESTING QUIETLY. APPEARS COMFORTABLE. DRSGS TO BLE CDI. CONTACT PRECAUTIONS IN PLACE.
--- NOTE | 2024-08-05 06:46 | NUR ---
CALL LIGHT ANSWERED. PT NEEDED TO USE BATHROOM. FEDERAL MEDIATOR 1PA WITH FWW TO BATHROOM. PT VOIDED AND ASSISTED BACK TO BED. PT STATES NO FURTHER NEEDS AT THIS TIME. CALL LIGHT WITHIN REACH.
--- NOTE | 2024-08-05 07:11 | NUR ---
REPORT RECEIVED FROM PEER HEALTH PROMOTER RN HENRY. PATIENT IS LYING IN BED WITH EYES CLOSED AND RESPIRATIONS ARE EVEN AND UNLABORED. CALL LIGHT AND PERSONAL BELONGINGS ARE WITHIN REACH.
[2024-08-05] MEDS ORDERED: CEFTRIAXONE SODIUM 1 GM VIAL IV ONE (07:59)
--- NOTE | 2024-08-05 08:15 | NUR ---
PATIENT IS SITTING UPRIGHT IN THE CHAIR WITH BILATERAL LOWER EXTREMITIES ELEVATED. MORNING MEDICATIONS ADMINISTERED PER THE EMAR. PATIENT STATED NO FURTHER NEEDS AT THIS TIME. CALL LIGHT AND PERSONAL BELONGINGS ARE WITHIN REACH.
--- NOTE | 2024-08-05 08:38 | NUR ---
Patient is sitting up in their chair to eat breakfast. Blood sugar was checked and recorded. 300ml breakfast limit met for fluid restriction. Call light and personal items within reach.
[2024-08-05] MEDS ORDERED: ENOXAPARIN SODIUM 30 MG/0.3 ML SYR SUB-Q SCH (09:00)
[2024-08-05] MEDS ORDERED: ENOXAPARIN SODIUM 40 MG/0.4 ML SYR SUB-Q SCH (09:00)
[2024-08-05] MEDS ORDERED: levoFLOXacin 750 MG TAB PO SCH (09:00)
--- NOTE | 2024-08-05 09:14 | NUR ---
PATIENT HAD BLANKET OVER HER HEAD. LET PATIENT KNOW THAT [place] [employer] AUTH HER VISITS. PATIENT VERY HAPPY. PATIENT TO DISCHARGE WITH SNOW WHEN MEDICALLY READY AND WILL START VISITS IN DS AT THAT TIME. NO FUTHER CM NEEDS.
--- NOTE | 2024-08-05 09:22 | NUR ---
UR CONCURRENT REVIEW: MCG-PER CONCURRENT MCG REVIEW DOES NOT MEET STAGE 3 DC [place] GL DUE TO ONGOING NEED FOR WOUND CARE AND TRENDING LABS DUE TO HYPONATREMIA. MILKA ARCHULETA INPT 07/31/24 @ 1921 AUTH REF# [id number]. UPDATED CLINICALS FAXED TO [facility]. DISCHARGE TO HOME WHEN STABLE. AUTH FOR OUTPATIENT DRESSING CHANGES RECEIVED. LIKELY DC TO HOME TOMORROW, WITH FRIEND. 08/08/24
--- NOTE | 2024-08-05 09:30 | NUR ---
FULL ASSESSMENT COMPLETE AND DOCUMENTED IN THE CHART. PATIENT IS ALERT AND ORIENTED TIMES FOUR. PATIENT RATED PAIN 3/10 IN THE BLE. PRN OXYCODONE ADMINISTERED PER THE EMAR PRIOR TO DRESSING CHANGE. PATIENT IS A SBA WITH A FWW. WEAKNESS NOTED TO BLE. PATIENT WITH MURMUR NOTED ON CARDIAC AUSCULTATION. RADIAL AND PEDAL PULSES ARE STRONG BILATERALLY. SENSATION INTACT WITH NUMBNESS AND TINGLING NOTED IN THE HANDS AND FEET. PATIENT STATES THIS IS BASELINE. CAPILLARY REFILL IN THE UPPER AND LOWER EXTREMITIES IS LESS THAN 3 SECONDS. BLE IS 2+ IN THE BILATERAL LOWER EXTREMITIES. IV FLUSHED WITH 10 ML NORMAL SALINE AND IS SALINE LOCKED. IV DRESSING IS CLEAN, DRY, AND INTACT. PATIENT IS ON ROOM AIR AND LUNG SOUNDS ARE CLEAR BILATERALLY. PATIENT IS ON A 60 GRAM CARBOHYDRATE DIET AND A 2,000 ML FLUID RESTRICTION. BOWEL TONES ARE ACTIVE IN ALL FOUR QUADRANTS. LAST BM WAS 08/04/24. DRESSING CHANGE COMPLETE. DRESSING WITH SEROUS AND RED DRAINAGE NOTED ON THE OLD DRESSING. SEE WOUND CARE ASSESSMENT FOR FURTHER DETAILS. WOUND CARE COMPLETE. NEW DRESSING APPLIED AT THIS TIME. PATIENT TOLERATED DRESSING CHANGE WELL. PATIENT WITH NO COMPLAINTS OF PAIN THROUGHOUT THE DRESSING CHANGE. PATIENT STATED NO FURTHER NEEDS AT THIS TIME. CALL LIGHT AND PERSONAL BELONGINGS ARE WITHIN REACH.
--- NOTE | 2024-08-05 09:38 | NUR ---
WOUND CARE ORDERS GIVEN TO DS IF PATIENT DISCHARGES OVER THE WEEKENED.
--- NOTE | 2024-08-05 09:41 | NUR ---
LEFT VOICEMAIL TO [place] [employer] FOR PHYSICAL COPY OF AUTH TO BE SENT.
--- NOTE | 2024-08-05 09:50 | PATH ---
[facility] [address], [place] [address] Signed SPECIMEN(S): A PRODUCT OF DEBRIDEMENT BILATERAL LOWER LEG SPECIMEN SOURCE: A. PRODUCT OF DEBRIDEMENT BILATERAL LOWER LEG CLINICAL HISTORY: Tissue damage of the lower extremities FINAL PATHOLOGIC DIAGNOSIS: Skin and soft tissue, bilateral lower legs, excision: - Skin and soft tissue with acute and chronic inflammation and necrosis BRP MICROSCOPIC EXAMINATION: Histologic sections of all submitted blocks are examined by light microscopy. These findings, together with the gross examination, support the pathologic diagnosis. GROSS DESCRIPTION: The specimen, labeled and designated "Harlan, D, products of debridement (bilateral lower legs) per requisition," is received in formalin and consists of a 10.9 x 9.2 x 3 cm aggregate of hutchinson-brown friable skin. These portions of skin average 0.2 cm in thickness and demonstrate epithelial sloughing. There is no significant amount of soft tissue present. There are no discrete masses or lesions. Ad Writer sections are submitted cassette A1 through A3. AA (under the direct supervision of a pathologist) The Gross Description was prepared using a voice recognition system. The report was reviewed for accuracy; however, sound-alike word errors, addition and/or deletions may occur. If there is any question about this report, please contact Client Services. ADDITIONAL NOTES: Immunohistochemical and/or in situ hybridization studies if performed in this case included appropriate positive controls that reacted as expected. This test was developed and its performance characteristics determined by [facility]. It has not been cleared or approved by the U.S. Food and Drug Administration. The FDA has determined that such clearance or approval is not necessary. This test is used for clinical purposes. It should not be regarded as investigational or for research. [facility] is certified under the PATIENT NAME: YOLANDA HAWLEY PATHOLOGY DATE OF : 69 REPORT #: [id number] PHYSICIAN: MARLENY LONDON PCP: OTHER PCP REPORT IS CONFIDENTIAL AND NOT TO BE RELEASED WITHOUT AUTHORIZATION [facility] [address] [facility], [place] [address] Signed Clinical Laboratory Improvement Amendments of 1988 (CLIA) as qualified to perform high complexity clinical laboratory testing. PERFORMING LABORATORY: Technical component was performed by [facility], [address] [place] [address] (CLIA# [id number]). Professional interpretation was performed by [facility], [address] [place] [address] (CLIA#: [id number]). Diagnostician: Henry Bee MD Pathologist Electronically Signed 08/05/2024 Copies: ~ PATIENT NAME: YOLANDA HAWLEY PATHOLOGY DATE OF : 69 REPORT #: [id number] PHYSICIAN: MARLENY LONDON PCP: OTHER PCP REPORT IS CONFIDENTIAL AND NOT TO BE RELEASED WITHOUT AUTHORIZATION
[2024-08-05] MEDS ORDERED: FUROSEMIDE 100 MG/10 ML VIAL IV ONE (10:15)
--- NOTE | 2024-08-05 10:18 | NUR ---
PT NOT AVAILABLE FOR VISIT. [facility]
--- NOTE | 2024-08-05 10:37 | NUR ---
PATIENT IS LYING IN BED ON HER RIGHT SIDE WITH EYES CLOSED AND RESPIRATIONS ARE EVEN AND UNLABORED. CALL LIGHT AND PERSONAL BELONGINGS ARE WITHIN REACH.
--- NOTE | 2024-08-05 12:15 | NUR ---
PATIENT IS SITTING UPRIGHT ON THE EDGE OF BED. BED ALARM ON. PATIENT WITH EYES OPEN AND RESPIRATIONS ARE EVEN AND UNLABORED. CALL LIGHT AND PERSONAL BELONGINGS ARE WITHIN REACH.
--- NOTE | 2024-08-05 12:54 | NUR ---
PRN OXYCODONE ADMINISTERED FOR 4/10 CHEST PAIN. NOTFIED OF PATIENT REPORTING CHEST PAIN. NO NEW ORDERS. BLINDS CLOSED IN THE PATIENT ROOM. LUNCH TRAY REMOVED. PATIENT STATED NO FURTHER NEEDS AT THIS TIME. CALL LIGHT AND PERSONAL BELONGINGS ARE WITHIN REACH.
--- NOTE | 2024-08-05 13:04 | NUR ---
PATIENT IS LYING IN BED ON HER RIGHT SIDE WITH HER HEAD COVERED WITH A BLANKET. RESPIRATIONS ARE EVEN AND UNLABORED. CALL LIGHT AND PERSONAL BELONGINGS ARE WITHIN REACH.
--- NOTE | 2024-08-05 14:01 | NUR ---
PATIENT CALLED TO USE THE BATHROOM. I ASSISTED PATIENT TO THE BATHROOM WITH WALKER AND BACK TO BED. PT HAD NO OTHER NEEDS AT THIS TIME. CALL LIGHT IN REACH BED ALARM ON.
--- NOTE | 2024-08-05 14:53 | NUR ---
PATIENT IS LYING IN BED WITH HOB ELEVATED. PATIENT IS WATCHING TV WITH RESPIRATIONS EVEN AND UNLABORED. PATIENT STATED NO FURTHER NEEDS AT THIS TIME. CALL LIGHT AND PERSONAL BELONGINGS ARE WITHIN REACH.
--- NOTE | 2024-08-05 15:45 | NUR ---
PATIENT ASSISTED TO THE BATHROOM WITH SBA AND FWW. AFTER VOIDING PATIENT IS BACK TO BED. SEE NOTE AT 1605 REGARDING FOCUSED ASSESSMENT.
--- NOTE | 2024-08-05 16:05 | NUR ---
PATIENT IS LYING IN BED AND WATCHING TV. PATIENT WITH EYES OPEN AND RESPIRATIONS ARE EVEN AND UNLABORED. PATIENT RATED PAIN 3/10 IN THE BILATERAL LOWER EXTREMITIES BUT IS NOT REQUESTING ANYTHING FOR PAIN AT THIS TIME. DRESSING CHANGE COMPLETE DUE TO INCREASED DRAINAGE ON THE DRESSING. LEFT LOWER EXTREMITY IS WORSE THAN THE RIGHT LOWER EXTREMITY. DRAINGE NOTED TO BE SEROUS, RED, AND A MODERATE AMOUNT. SEE WOUND CARE ASSESSSMENT. NEW CHUX IN BED. MARK SODA NOTED AT THE BEDSIDE UNDER A TOWEL. PATIENT EDUCATED ON THE IMPORTANCE OF FOLLOWING A FLUID RESTRICTION. PATIENT EXPRESSED UNDERSTANDING AND ASKED THIS RN TO DUMP THE SODA. RN REMOVED SODA AT THIS TIME. PATIENT STATED NO FURTHER NEEDS AT THIS TIME. CALL LIGHT AND PERSONAL BELONGINGS ARE WITHIN REACH. PHYSICAL THERAPY TO COME IN AND WORK WITH THE PATIENT.
--- NOTE | 2024-08-05 17:13 | NUR ---
PATIENT IS LYING IN BED WITH THE HOB. PATIENT IS EATING DINNER AND WATCHING TV. CALL LIGHT AND PERSONAL BELONGINGS ARE WITHIN REACH.
--- NOTE | 2024-08-05 18:18 | NUR ---
PATIENT IS LYING IN BED WITH HOB ELEVATED. PATIENT IS SPEAKING ON THE PHONE. TV IS ON AND RESPIRATIONS ARE EVEN AND UNLABORED. BED ALARM ON. CALL LIGHT AND PERSONAL BELONGINGS ARE WITHIN REACH.
--- NOTE | 2024-08-05 18:24 | NUR ---
PATIENT BED ALARM WENT OFF. I ASSISTED HER TO THE BATHROOM WITH WALKER AND BACK TO BED. PT HAD NO OTHER NEEDS AT THIS TIME. CALL LIGHT IN REACH. BED ALARM SET.
--- NOTE | 2024-08-05 19:15 | NUR ---
REPORT RECEIVED FROM GARRETT MANCUSO. pt RESTING IN THE BED. BOARD UPDATED. pt DENIES ANY OTHER NEEDS AT THIS TIME. CALL LIGHT WITHIN REACH.
[2024-08-05 20:06] LABS: URINE OSMOLALITY 324 mOsm/kg (50-800)
--- NOTE | 2024-08-05 21:15 | NUR ---
ASSESSMENT AND VITAL SIGNS DONE. BG CHECKED WITH A RESULTS OF 159. SS INSULIN ADMINISTERED. pt C/O 08/22 PAIN. PRN PAIN MEDS ADMINISTERED. SCHEDULED PAIN MEDS ADMINISTERED. DRESSING ON BLE HAS MINIMAL DRAINAGE ON THEM. pt REQUEST BROTH AND JELLO AT THIS TIME. THIS IS THE FINAL AMOUNT OF FLUID FOR HER FLUID RESTRICTION AND pt AGREES. pt DENIES ANY OTHER NEEDS AT THIS TIME. CALL LIGHT WITHIN REACH.
--- NOTE | 2024-08-05 22:44 | NUR ---
CALL LIGHT ANSWERED. PT NEEDED TO USE BATHROOM. MARINE DESIGN ENGINEER SBA TO BATHROOM. PT VOIDED AND ASSISTED BACK TO BED. PT STATES NO FURTHER NEEDS AT THIS TIME. CALL LIGHT WITHIN REACH AND BED ALARM ON.
[2024-08-06] VITALS (9 sets, daily range): BP systolic 144–166; BP diastolic 65–96
--- NOTE | 2024-08-06 00:28 | NUR ---
CALL LIGHT ANSWERED. PT NEEDED TO USE BATHROOM. CLINICAL AIDE 1PA WITH FWW TO BATHROOM. PT VOIDED AND ASSISTED BACK TO BED. PT REQUESTING MELATONIN. RN NOTIFED. PT STATES NO FURTHER NEEDS AT THIS TIME. CALL LIGHT WITHIN REACH AND BED ALARM ON.
--- NOTE | 2024-08-06 01:00 | NUR ---
IN RM TO CHECK ON pt. pt REQUEST SNACK. SNACK PROVIDED. MELATONIN UNAVALABLE. pt DENIES ANY OTHER NEEDS AT THIS TIME. CALL LIGHT WITHIN REACH.
--- NOTE | 2024-08-06 03:22 | NUR ---
CALL LIGHT ANSWERED. PT NEEDED TO USE BATHROOM. PMO PROJECT MANAGER SBA TO BATHROOM. PT VOIDED AND ASSISTED BACK TO BED. PT STATES NO FURTHER NEEDS AT THIS TIME. CALL LIGHT WITHIN REACH AND BED ALARM ON.
--- NOTE | 2024-08-06 05:02 | NUR ---
pt CALLED TO GO TO THE BR. SBA WITH FWW. pt DENIES ANY OTHER NEEDS AT THIS TIME. CALL LIGHT WITHIN REACH. pt STARTED FLUID RESTRICTION WITH COFFEE 300mL.
[2024-08-06 05:13] LABS: EOSINOPHILS 3.5 % (0-6); HEMATOCRIT 24.9 % (35.0-50.0); HEMOGLOBIN 8.4 g/dL (12.0-18.0); LYMPHOCYTES 24.6 % (24-44); MCH 29.4 (27-36); MCHC 33.9 g/dl (30-36); MCV 86.6 fl (81-99); MONOCYTES 12.9 % (0-12); PLATELET COUNT 470 K/uL (140-440); RBC 2.88 M/ul (4.3-5.7)
[2024-08-06 05:27] LABS: ANION GAP 16.2 (7-21); BUN/CREATININE RATIO 23.96 (6.0-28.6); CREATININE, SERUM 2.17 mg/dL (0.55-1.02); POTASSIUM 6.2 mmol/L (3.5-5.1)
--- NOTE | 2024-08-06 06:31 | NUR ---
CALL LIGHT ANSWERED. PT NEEDED TO USE BATHROOM. INSTRUMENT STERILIZER 1PA WITH FWW TO BATHROOM. PT VOIDED AND ASSISTED BACK TO BED. PT STATES NO FURTHER NEEDS AT THIS TIME. CALL LIGHT WITHIN REACH AND BED ALARM ON.
--- NOTE | 2024-08-06 07:05 | NUR ---
REPORT RECEIVED FROM POLICE SHIFT COMMANDER RN YULISSA. PATIENT IS LYING IN BED WITH HOB ELEVATED. PATIENT WITH EYES CLOSED AND RESPIRATIONS ARE EVEN AND UNLABORED. LIGHT IS ON. CALL LIGHT AND PERSONAL BELONGINGS ARE WITHIN REACH.
--- NOTE | 2024-08-06 07:25 | NUR ---
NOTIFIED OF PATIENTS POTASSIUM LEVEL OF 6.2, MD WITH NO NEW ORDERS AT THIS TIME.
--- NOTE | 2024-08-06 08:00 | NUR ---
FULL ASSESSMENT COMPLETE AND DOCUMENTED IN THE CHART. WENCESLAO PHELPS RN PRESENT AT BEDSIDE THROUGHOUT PATIENT INTERACTION. PATIENT IS ALERT AND ORIENTED TIMES FOUR. SKIN WITH SCATTERED SCABS AND SCATTERED SCARS NOTED. DRESSING CHANGE COMPLETE WITH ASSISTANCE FROM BARTOLOME BILLY. NEW WOUND PICTURES TAKEN AND ARE IN THE CHART. OLD DRESSINGS WITH MODERATE AMOUNT OF SEROUS DRAINAGE NOTED. PATIENT IS A STAND BY ASSIST WITH THE FWW. PATIENT WITH NO COMPLAINTS OF WEAKNESS OR PAIN AT THIS TIME. MURMUR HEARD ON CARDIAC AUSCULTATION. PATIENT STATES SHE HAS THIS AT BASELINE. RADIAL PULSES ARE STRONG BILATERALLY. CAPILLARY REFILL IN THE UPPER AND LOWER EXTREMITIES IS LESS THAN 3 SECONDS. BLE WITH TRACE EDEMA NOTED. IV SITE FLUSHED WITH 10 ML NORMAL SALINE AND IS SALINE LOCKED. IV DRESSING IS CLEAN, DRY, AND INTACT. PATIENT IS ON ROOM AIR AND LUNG SOUNDS ARE CLEAR BILATERALLY. PATIENT IS ON A 60 GRAM CARB DIET WITH A 2,000 ML FLUID RESTRICTION. BOWEL TONES ARE ACTIVE IN ALL FOUR QUADRANTS. PATIENT STATED NO FURTHER NEEDS, CALL LIGHT AND PERSONAL BELONGINGS ARE WITHIN REACH. LAB ENTERS THE ROOM AT THIS TIME.
[2024-08-06 08:21] LABS: ANION GAP 16.7 (7-21); BUN/CREATININE RATIO 23.76 (6.0-28.6); CALCIUM 8.2 mg/dL (8.5-10.1); CREATININE, SERUM 2.23 mg/dL (0.55-1.02); POTASSIUM 5.7 mmol/L (3.5-5.1)
[2024-08-06] MEDS ORDERED: CEFTRIAXONE SODIUM 1 GM VIAL IV ONE (09:01)
--- NOTE | 2024-08-06 10:23 | NUR ---
PATIENT IS LYING IN BED WITH EYES CLOSED AND RESPIRATIONS ARE EVEN AND UNLABORED. HOB ELEVATED AND THE TV IS ON. CALL LIGHT AND PERSONAL BELONGINGS ARE WITHIN REACH.
--- NOTE | 2024-08-06 11:09 | NUR ---
PATIENT IS LYING IN BED WITH EYES CLOSED AND RESPIRATIONS ARE EVEN AND UNLABORED. HEAD OF BED IS ELEVATED. CALL LIGHT AND PERSONAL BELONGINGS ARE WITHIN REACH.
--- NOTE | 2024-08-06 11:34 | NUR ---
PATIENT AMBULATED BY STANDBY ASSIST TO THE BATHROOM. PATIENT VOID 200 ML LIGHT YELLOW URINE. PATIENT THEN AMBULATED TO THE CHAIR. CHAIR ALARM ON WITH CALL LIGHT IN REACH. IV PUMP CLEARED OF INTAKE FLUIDS. PATIENT STATED NO FURTHER NEEDS.
[2024-08-06] MEDS ORDERED: Calcium Gluconate in NS 1,000 MG/50 ML BAG IV ONE ×2 (11:45→13:15)
[2024-08-06 12:15] LABS: ANION GAP 14.6 (7-21); BUN/CREATININE RATIO 25.34 (6.0-28.6); CALCIUM 7.8 mg/dL (8.5-10.1); CREATININE, SERUM 2.17 mg/dL (0.55-1.02); POTASSIUM 5.6 mmol/L (3.5-5.1)
--- NOTE | 2024-08-06 13:06 | NUR ---
PATIENT IS LYING IN BED WITH EYES CLOSED AND RESPIRATIONS ARE EVEN AND UNLABORED. CALL LIGHT AND PERSONAL BELONGINGS ARE WITHIN REACH.
[2024-08-06] MEDS ORDERED: Insulin Regular, Human 100 UNIT/ML ML IV ONE (13:15)
[2024-08-06] MEDS ORDERED: DEXTROSE 50% 50 ML SYR IV ONE (13:15)
--- NOTE | 2024-08-06 13:54 | NUR ---
PATIENT UP AND HAD A BOWEL MOVEMENT. BED CLEANED UP AND ROOM CLEANED.
--- NOTE | 2024-08-06 14:30 | NUR ---
PATIENT IS LYING IN BED WITH EYES OPEN AND RESPIRATIONS ARE EVEN AND UNLABORED. IV PUMP RE-PROGRAMMED FOR CALCIUM GLUCONATE INFUSION. 2+ PITTING EDEMA NOTED IN THE BILATERAL ARMS. NOTIFIED OF THE PITTING EDEMA AND DIAGNOSIS OF CHF. THIS RN DELEGATED TO BARTOLOME CARIAS TO GET A STANDING WEIGHT. JV EXPRESSED UNDERSTANDING. PATIENT WITH NO FURTHER NEEDS. CALL LIGHT AND PERSONAL BELONGINGS ARE WITHIN REACH.
--- NOTE | 2024-08-06 14:38 | NUR ---
STANDING WEIGHT DONE ON PATIENT, PATIENT TOLERATED WELL, GOT OUT OF BED AND UP TO THE SCALE WITH NO ASSISTINCE.
--- NOTE | 2024-08-06 14:50 | NUR ---
MD NOTIFIED OF THE PATIENT WEIGHT OF 124 POUNDS ON 07/31/24. PATIENT STANDING WEIGHT TODAY IS 145 POUNDS. PATIENT GAVE THIS RN VERBAL ORDER FOR 80 ML IV LASIX NOW. MD STATED NO FURTHER ORDERS AT THIS TIME.
[2024-08-06] MEDS ORDERED: FUROSEMIDE 100 MG/10 ML VIAL IV ONE (15:00)
--- NOTE | 2024-08-06 15:07 | NUR ---
PATIENT IS LYING IN BED ON THEIR LEFT SIDE WITH EYES CLOSED AND RESPIRATIONS EVEN AND UNLABORED UPON RN ENTERING THE ROOM. PATIENT THEN OPENED HER EYES TO RN VOICE. IV SITE IS CLEAN, DRY, AND INTACT. CALCIUM GLUCONATE INFUSION CONTINUES TO INFUSE. 2+ PITTING EDEMA NOTED TO THE BILATERAL ARMS AND 1+ EDEMA NOTED TO THE BILATERAL LEGS JUST UNDER THE KNEES. BILATERAL ARMS ARE ELEVATED WITH PILLOWS AT THIS TIME. DRESSINGS TO THE BILATERAL LOWER EXTREMITIES ARE CLEAN, DRY, AND INTACT. NO DRAINAGE NOTED. PATIENT EDUCATED ON GETTING A DOSE OF LASIX TO HELP WITH REMOVING EXCESS FLUID. PATIENT EXPRESSED UNDERSTANDING. PATIENT STATED NO FURTHER NEEDS AT THIS TIME. CALL LIGHT AND PERSONAL BELONGINGS ARE WITHIN REACH.
--- NOTE | 2024-08-06 15:18 | NUR ---
INTO GIVE PATIENT POTASSIUM. IN THE ROOM WITH PATIENT.
[2024-08-06 16:27] LABS: ANION GAP 15.4 (7-21); BUN/CREATININE RATIO 24.88 (6.0-28.6); CALCIUM 8.2 mg/dL (8.5-10.1); CREATININE, SERUM 2.21 mg/dL (0.55-1.02); POTASSIUM 5.4 mmol/L (3.5-5.1)
--- NOTE | 2024-08-06 16:30 | NUR ---
CALCIUM GLUCONATE INFUSION COMPLETE. IV FLUSHED WITH 10 ML NORMAL SALINE AND IS SALINE LOCKED. IV DRESSING IS CLEAN, DRY, AND INTACT. PATIENT WITH NO COMPLAINTS OF PAIN. HUNGARIAN LEMON ICED PROVIDED PER PATIENT REQUEST. PATIENT EDUCATED ON THE FLUID RESTRICTION AND WHAT SHE HAS REMAINING. PATIENT EXPRESSED UNDERSTANDING. PATIENT STATED NO FURTHER NEEDS AT THIS TIME. CALL LIGHT AND PERSONAL BELONGINGS ARE WITHIN REACH.
--- NOTE | 2024-08-06 18:10 | NUR ---
PATIENT IS LYING IN BED ON HER RIGHT SIDE WITH EYES CLOSED AND RESPIRATIONS ARE EVEN AND UNLABORED. LIGHTS ARE ON IN THE ROOM. CALL LIGHT AND PERSONAL BELONGINGS ARE WITHIN REACH.
--- NOTE | 2024-08-06 18:57 | NUR ---
PATIENT IS WATCHING TV. BED ALARM IS ON. CALL LIGHT WITH IN REACH.
--- NOTE | 2024-08-06 19:32 | NUR ---
REPORT RECEIVED FROM DAY SHIFT RN. PT LYING IN BED ALERT AND ORIENTED. DENIES NEEDS. WHITE BOARD UPDATED. CALL LIGHT IN REACH.
[2024-08-06 20:26] LABS: ANION GAP 14.2 (7-21); BUN/CREATININE RATIO 25.33 (6.0-28.6); CREATININE, SERUM 2.21 mg/dL (0.55-1.02); POTASSIUM 5.2 mmol/L (3.5-5.1)
--- NOTE | 2024-08-06 21:12 | NUR ---
EVENING ASSESSMENT COMPLETE. SCHEDULED MEDS ADMIN PER EMAR. PT REPORTS LEFT FOOT PAIN 5/10. PRN FOR PAIN ADMIN PER EMAR IN ANTICIPATION OF BLE DRESSING CHANGE. PT DENIES NAUSEA. NO FURTHER NEEDS AT THIS TIME. CALL LIGHT IN REACH.
--- NOTE | 2024-08-06 22:46 | NUR ---
PT RESTING WITH EYES CLOSED. AWAKENS EASILY. DRESSING CHANGE TO BLE COMPLETED PER ORDER. PT KEILA WELL. BLE ELEVATED ON PILLOWS. NO FURTHER NEEDS. CALL LIGHT IN REACH. BED ALARM FOR SAFETY.
[2024-08-07] VITALS (10 sets, daily range): BP systolic 135–174; BP diastolic 69–94
--- NOTE | 2024-08-07 00:03 | NUR ---
BED ALARM SOUNDING. PT UP TO BR WITH MINIMAL SBA TO VOID 200 ML CLEAR YELLOW URINE. GAIT STEADY. BACK TO BED, KEILA WELL. BLE ELEVATED ON PILLOWS. SNACK PROVIDED. NO FURTHER NEEDS. BED ALARM IN PLACE. CALL LIGHT IN REACH.
--- NOTE | 2024-08-07 02:09 | NUR ---
PT RESTING IN BED WITH EYES CLOSED. RESPIRATIONS EVEN. CALL LIGHT IN REACH. BED ALARM FOR SAFETY.
--- NOTE | 2024-08-07 03:00 | NUR ---
PT UTILIZES CALL LIGHT, REQUESTS TO USE THE BATHROOM. PT UP TO BATHROOM AND BACK TO BED WITH 1 PA AND FWW. PT TOLERATED WELL. PT REQUESTED SNACKS, PROVIDED. PT SITTING AT EDGE OF BED. BED ALARM ACTIVE. PT DENIES FURTHER NEEDS.
[2024-08-07 05:39] LABS: EOSINOPHILS 2.2 % (0-6); HEMATOCRIT 26.1 % (35.0-50.0); HEMOGLOBIN 8.5 g/dL (12.0-18.0); LYMPHOCYTES 25.5 % (24-44); MCH 28.6 (27-36); MCHC 32.4 g/dl (30-36); MCV 88.3 fl (81-99); MONOCYTES 10.3 % (0-12); PLATELET COUNT 542 K/uL (140-440); RBC 2.95 M/ul (4.3-5.7); RDW 16.2 (10.5-15.0)
--- NOTE | 2024-08-07 05:55 | NUR ---
LAB IN FOR MORNING DRAW. VS AND I&O OBTAINED. DAILY WEIGHT OBTAINED. SMALL AMOUNT SEROSANG DRAINAGE NOTED ON BLE DRESSINGS. BLE ELEVATED ON PILLOWS. PT REMAINS WITHIN FLUID RESTRICTION. NO FURTHER NEEDS. BED ALARM FOR SAFETY. CALL LIGHT IN REACH.
[2024-08-07 05:57] LABS: ALBUMIN/GLOBULIN RATIO 0.21 (1.1-2.4); ANION GAP 17.4 (7-21); BILIRUBIN, TOTAL 0.1 mg/dL (0.2-1.0); BUN/CREATININE RATIO 23.94 (6.0-28.6); CREATININE, SERUM 2.38 mg/dL (0.55-1.02); POTASSIUM 5.4 mmol/L (3.5-5.1); PROTEIN, TOTAL 5.8 g/dL (6.4-8.2)
--- NOTE | 2024-08-07 07:03 | NUR ---
REPORT RECEIVED FROM IT INTEGRATION ARCHITECT BARTOLOME COUGHLIN. PATIENT SITTING UP IN BED WITH EYES OPEN AND RESPIRATIONS ARE EVEN AND UNLABORED. DRESSINGS VISULAIZED WITH DRAINAGE NOTED ON THE DRESSINGS. PATIENT STATED NO FURTHER NEEDS AT THIS TIME. CALL LIGHT AND PERSONAL BELONGINGS ARE WITHIN REACH.
[2024-08-07] MEDS ORDERED: Calcium Gluconate in NS 1,000 MG/50 ML BAG IV ONE ×2 (08:00→21:00)
--- NOTE | 2024-08-07 08:09 | NUR ---
PATIENT IN CHAIR AT THIS TIME. ACUPRESSURIST DID HOURLY ROUNDS IN PATIENTS ROOM. CALL LIGHT WITHIN REACH, NO FURTHER NEEDS AT THIS TIME.
--- NOTE | 2024-08-07 08:47 | NUR ---
PATIENT IS SITTING IN THE CHAIR WITH BILATERAL LOWER EXTREMITIES ELEVATED. IV SITE FLUSHED WITH 10 ML NORMAL SALINE, CALCIUM GLUCONATE IS INNFUSING AT 25 ML/HR. IV DRESSING IS CLEAN, DRY, AND INTACT. PATIENT STATED NO FURTHER NEEDS AT THIS TIME. CALL LIGHT AND PERSONAL BELONGINGS ARE WITHIN REACH.
[2024-08-07] MEDS ORDERED: FUROSEMIDE 40 MG/4 ML VIAL IV SCH ×2 (09:00→13:00)
--- NOTE | 2024-08-07 09:14 | NUR ---
PATIENT UP TO BATHROOM TO VOID/BM, SBA WITH FWW. PATIENT IN BED FOR NAP AFTER BREAKFAST.
--- NOTE | 2024-08-07 09:33 | NUR ---
PATIENT IS LYING IN BED ON HER RIGHT SIDE WITH EYES CLOSED AND RESPIRATIONS ARE EVEN AND UNLABORED. CALL LIGHT AND PERSONAL BELONGINGS ARE WITHIN REACH.
--- NOTE | 2024-08-07 09:50 | NUR ---
PATIENT IN BED AT THIS TIME. COMMUNITY SERVICE OFFICER CHARTED VITALS AND I&O'S. CALL LIGHT WITHIN REACH, NO FURTHER NEEDS AT THIS TIME.
[2024-08-07 10:12] LABS: ANION GAP 16.3 (7-21); BUN/CREATININE RATIO 24.78 (6.0-28.6); CALCIUM 8.5 mg/dL (8.5-10.1); CREATININE, SERUM 2.3 mg/dL (0.55-1.02); MAGNESIUM 1.7 mg/dL (1.8-2.4); POTASSIUM 5.3 mmol/L (3.5-5.1)
--- NOTE | 2024-08-07 10:30 | NUR ---
PATIENT IS LYING IN BED WITH THE HOB ELEVATED. FULL ASSESSMENT COMPLETE AND DOCUMENTED IN THE CHART. PATIENT IS ALERT AND ORIENTED TIMES FOUR. PATIENT IS A SBA WITH A WALKER. CARDIAC WITH MURMUR HEARD ON AUSCULTATION. RADIAL PULSES ARE STRONG BILATERALLY. PEDAL PULSES UNABLE TO ASSESS DUE TO WOUNDS. CAPILARY REFILL IN THE UPPER AND LOWER EXTREMITIES IS LESS THAN 3 SECONDS. SENSATION INTACT AND PATIENT HAS NO COMPLAINTS OF NUMBNESS OR TINGLING. 1+ PITTING EDEMA NOTED TO THE BLE AND BUE. CALCIUM GLUCONATE INFUSION COMPLETE. IV FLUSHED WITH 10 ML NORMAL SALINE AND IS SALINE LOCKED. IV DRESSING IS CLEAN, DRY AND INTACT. PATIENT IS ON ROOM AIR AND LUNG SOUNDS ARE CLEAR IN ALL LUNG WEBBER BILATERALLY. PATIENT IS ON A 60 GRAM CARB DIET WITH A 2,000 ML FLUID RESTRICTION. BOWEL TONES ARE ACTIVE IN ALL FOUR QUADRANTS. PATIENT WITH NO COMPLAINTS OF PAIN AT THIS TIME. PATIENT STATED NO FURTHER NEEDS AT THIS TIME. CALL LIGHT AND PERSONAL BELONGINGS ARE WITHIN REACH.
[2024-08-07] MEDS ORDERED: MAGNESIUM CHLORIDE 64 MG TABCR PO ONE (10:45)
--- NOTE | 2024-08-07 11:06 | NUR ---
PATIENT GIVEN ORAL MAGNESIUM. ATTEMPTED EDUCATION REGARDING FLUID RESTRICTION.
--- NOTE | 2024-08-07 11:19 | NUR ---
NOTIFIED OF 1000 BLOOD PRESSURE. WITH NO NEW ORDERS AT THIS TIME.
[2024-08-07] MEDS ORDERED: hydrALAZINE HCL 20 MG/ML VIAL IV PRN (11:45)
--- NOTE | 2024-08-07 12:03 | NUR ---
1200 INSULIN ADMINISTERED PER THE EMAR. PATIENT IS LYING IN BED WITH HOB ELEVATED. TV AND LIGHTS ARE ON. BP IS 160/78 AND THE MAP IS 78. PATIENT STATED NO FURTHER NEEDS AT THIS TIME. CALL LIGHT AND PERSONAL BELONGINGS ARE WITHIN REACH.
--- NOTE | 2024-08-07 13:28 | NUR ---
Assisted Pt 1PA FWW from bed to bathroom and back. Call light left in reach. No other needs expressed by Pt.
[2024-08-07 14:18] LABS: ANION GAP 15.1 (7-21); BUN/CREATININE RATIO 25.11 (6.0-28.6); CALCIUM 8.1 mg/dL (8.5-10.1); CREATININE, SERUM 2.27 mg/dL (0.55-1.02); POTASSIUM 5.1 mmol/L (3.5-5.1)
--- NOTE | 2024-08-07 14:37 | NUR ---
PATIENT IS LYING IN BED WITH EYES OPEN AND WATCHING TV. RESPIRATIONS ARE EVEN AND UNLABORED. PATIENT STATED NO NEEDS AT THIS TIME. CALL LIGHT AND PERSONAL BELONGINGS ARE WITHIN REACH.
--- NOTE | 2024-08-07 15:15 | NUR ---
PATIENT IS LYING IN BED WITH THE HOB ELEVATED AND IS WATCHING TV. RESPIRATIONS ARE EVEN AND UNLABORED. PATIENT WITH NO COMPLAINTS OF PAIN WHEN THIS RN ASKED PATIENT. IV IN THE LEFT UPPER ARM FLUSHED WITH 10 ML NORMAL SALINE AND IS SALINE LOCKED. IV DRESSING IS CLEAN, DRY, AND INTACT. DRESSINGS TO BLE ARE CLEAN, DRY, AND INTACT. NO DRAINAGE NOTED ON THE DRESSINGS. PATIENT STATED NO FURTHER NEEDS AT THIS TIME. CALL LIGHT AND PERSONAL BELONGINGS ARE WITHIN REACH.
--- NOTE | 2024-08-07 15:15 | NUR ---
Provided 150 mL chicken broth after 250 mL water intake. No other needs expresed by Pt. Call light left in reach.
--- NOTE | 2024-08-07 15:35 | NUR ---
Assisted Pt 1PA FWW from bed to bathroom and back. No other needs expressed by Pt. Call light left in reach.
--- NOTE | 2024-08-07 16:18 | NUR ---
PATIENT IS LYING ON HER RIGHT SIDE WITH EYES CLOSED AND RESPIRATIONS ARE EVEN AND UNLABORED. TV IS ON. CALL LIGHT AND PERSONAL BELONGINGS ARE WITHIN REACH.
--- NOTE | 2024-08-07 16:25 | NUR ---
Assisted Pt 1PA FWW from bed to bathroom and back. No other needs expressed by Pt. Call light left in reach.
[2024-08-07 18:04] LABS: ANION GAP 15.3 (7-21); BUN/CREATININE RATIO 25.65 (6.0-28.6); CREATININE, SERUM 2.3 mg/dL (0.55-1.02); POTASSIUM 5.3 mmol/L (3.5-5.1)
--- NOTE | 2024-08-07 18:15 | NUR ---
PATIENT IS LYING ON HER LEFT SIDE WITH EYES CLOSED AND RESPIRATIONS ARE EVEN AND UNLABORED. LIGHTS ARE OFF IN THE ROOM. CALL LIGHT AND PERSONAL BELONGINGS ARE WITHIN REACH.
--- NOTE | 2024-08-07 19:28 | NUR ---
REPORT RECEIVED FROM DAY SHIFT RN. PT LYING IN RESTING ON LEFT SIDE WITH EYES CLOSED. RESPIRATIONS EVEN. WHITE BOARD UPDATED. CALL LIGHT IN REACH. BED ALARM FOR SAFETY.
--- NOTE | 2024-08-07 19:52 | NUR ---
PT CALSS TO USE BR. SBA FWW TO BR AND BACK TO BED. PT REQUESTS REMAINDER OF WATER TO BE CHANGED FOR HOT TEA, PROVIDED. PT STATES NO OTHER NEEDS AT THIS TIME. BED ALARM ON, CALL LIGHT IN REACH.
--- NOTE | 2024-08-07 20:59 | NUR ---
PT LYING IN BED WATCHING TV. PRN FOR PAIN ADMIN IN ANTICIPATION OF BLE DRESSING CHANGES.
--- NOTE | 2024-08-07 22:26 | NUR ---
EVENING ASSESSMENT COMPLETE. SCHEDULED MEDS ADMIN PER EMAR. DRESSING CHANGE DONE TO BLE. PT KEILA WELL. VS AND I&O OBTAINED. NO FURTHER NEEDS. CALL LIGHT IN REACH. BED ALARM FOR SAFETY.
[2024-08-08] VITALS (9 sets, daily range): BP systolic 119–181; BP diastolic 53–79
--- NOTE | 2024-08-08 00:11 | NUR ---
CALL LIGHT ANSWERED. PT UP TO BR WITH SBA TO VOID. GAIT STEADY. BACK TO BED, KEILA WELL. NO FURTHER NEEDS. BED ALARM IN PLACE. CALL LIGHT IN REACH.
--- NOTE | 2024-08-08 01:06 | NUR ---
PT RESTING IN BED WITH EYES CLOSED. RESPIRATIONS EVEN. CALL LIGHT IN REACH.
--- NOTE | 2024-08-08 02:53 | NUR ---
PT RESTING IN BED WITH EYES CLOSED. RESPIRATIONS EVEN. CALL LIGHT IN REACH.
--- NOTE | 2024-08-08 03:45 | NUR ---
CALL LIGHT ANSWERED. PT UP TO BR WITH MINIMAL SBA TO VOID. AT SINK FOR HANDWASHING. BACK TO BED, KEILA WELL. GAIT STEADY. FEW ICE CHIPS PROVIDED. BLE DRESSINGS CDI. BLE ELEVATED ON PILLOWS. NO FURTHER NEEDS. CALL LIGHT IN REACH. BED ALARM FOR SAFETY.
[2024-08-08 05:17] LABS: BASOPHILS 0.8 % (0-2); EOSINOPHILS 2.7 % (0-6); HEMATOCRIT 22.7 % (35.0-50.0); HEMOGLOBIN 7.7 g/dL (12.0-18.0); MCH 29.7 (27-36); MCHC 33.8 g/dl (30-36); MONOCYTES 10.8 % (0-12); NEUTROPHILS 60.7 % (39-80); PLATELET COUNT 520 K/uL (140-440); RBC 2.58 M/ul (4.3-5.7); RDW 16.3 (10.5-15.0)
--- NOTE | 2024-08-08 05:24 | NUR ---
LAB IN FOR MORNING DRAW. DAILY WEIGHT OBTAINED. VS AND I&O OBTAINED. SMALL AMOUNT OF COFFEE PROVIDED. NO C/O PAIN AT THIS TIME. DRESSING TO BLE CDI AND ELEVATED ON PILLOW. NO FURTHER NEEDS. BED ALARM FOR SAFETY. CALL LIGHT IN REACH.
[2024-08-08 05:32] LABS: ALBUMIN 0.8 g/dL (3.4-5.0); ALBUMIN/GLOBULIN RATIO 0.17 (1.1-2.4); ANION GAP 15.5 (7-21); BILIRUBIN, TOTAL 0.1 mg/dL (0.2-1.0); BUN/CREATININE RATIO 26.72 (6.0-28.6); CALCIUM 8.2 mg/dL (8.5-10.1); CREATININE, SERUM 2.32 mg/dL (0.55-1.02); MAGNESIUM 1.7 mg/dL (1.8-2.4); POTASSIUM 5.5 mmol/L (3.5-5.1); PROTEIN, TOTAL 5.4 g/dL (6.4-8.2)
--- NOTE | 2024-08-08 05:50 | NUR ---
CALL LIGHT ANSWERED. PT UP TO BR WITH MINIMAL SBA TO VOID. BACK TO BED, KEILA WELL. NO FURTHER NEEDS.
--- NOTE | 2024-08-08 07:47 | NUR ---
PT AWAKE AND ASKING FOR COFFEE AT TIME OF SHIFT REPORT. CALL LIGHT AND NEEDED ITEMS AT BEDSIDE
[2024-08-08] MEDS ORDERED: Insulin Regular, Human 100 UNIT/ML ML IV ONE (08:30)
[2024-08-08] MEDS ORDERED: MAGNESIUM SULFATE 2 GM/50 ML BAG IV SCH (08:30)
[2024-08-08] MEDS ORDERED: DEXTROSE 50% 50 ML SYR IV ONE (08:30)
[2024-08-08] MEDS ORDERED: Calcium Gluconate in NS 1,000 MG/50 ML BAG IV ONE ×2 (08:30→14:30)
--- NOTE | 2024-08-08 09:53 | NUR ---
DRESSING TO LOWER EXTREMITIES CHANGED PER MD ORDERS WELL TOLERATED BY PT. SHE STATES HOW MUCH BETTER THEY LOOK AND TAKES PHOTOS WITH HER PHONE. BP ELEVATED PRN GIVEN PER ORDERS PT IS NOT SYMPTOMATIC. NO FURTHER NEEDS AT THIS TIME
--- NOTE | 2024-08-08 11:04 | NUR ---
INTO SEE PATIENT. PATIENT STILL WANTS TO GO HOME WITH OUTPATIENT WOUND THERAPY WHEN MEDICALLY CLEARED. NO OTHER CM NEEDS AT THIS TIME.
--- NOTE | 2024-08-08 11:32 | NUR ---
PT IS UP IN THE CHAIR WATCHING TV DENIES NEEDS AT THIS TIME
[2024-08-08] MEDS ORDERED: ALBUTEROL SULFATE 0.5% 2.5 MG/0.5 ML VIAL INH ONE (12:00)
[2024-08-08 13:28] LABS: ANION GAP 15.7 (7-21); BUN/CREATININE RATIO 27.7 (6.0-28.6); CALCIUM 8.6 mg/dL (8.5-10.1); CREATININE, SERUM 2.31 mg/dL (0.55-1.02); POTASSIUM 5.7 mmol/L (3.5-5.1)
[2024-08-08] MEDS ORDERED: SODIUM BICARBONATE 150 MEQ in DEXTROSE 5% 1,000 ML IV SCH (14:15)
--- NOTE | 2024-08-08 14:34 | NUR ---
PT UP IN THE CHAIR FOR QUITE SOMETIME THIS SHIFT RESTING IN BED NOW. P/T IN TO WORK WITH HER PT IS COOPERATIVE AND PARTICIPATORY
[2024-08-08 15:02] LABS: PH, VENOUS 7.263 (7.31-7.41)
--- NOTE | 2024-08-08 17:22 | NUR ---
PATIENT IS EATING HER DINNER.
--- NOTE | 2024-08-08 17:28 | NUR ---
PT SITTING UP WITH EVENING MEAL EATING HEARTILY DENIES NEEDS OF
[2024-08-08 18:02] LABS: PH, VENOUS 7.303 (7.31-7.41)
[2024-08-08 18:16] LABS: ANION GAP 15.2 (7-21); BUN/CREATININE RATIO 28.21 (6.0-28.6); CALCIUM 8.5 mg/dL (8.5-10.1); CREATININE, SERUM 2.41 mg/dL (0.55-1.02); POTASSIUM 5.2 mmol/L (3.5-5.1)
--- NOTE | 2024-08-08 19:23 | NUR ---
REPORT RECEIVED FROM DAY SHIFT RN. PT LYING IN BED ALERT AND ORIENTED. REPORTS SOME REFLUX SX. NIO PLACED. DENIES OTHER NEEDS. WHITE BOARD UPDATED. CALL LIGHT IN REACH. BED ALARM FOR SAFETY.
[2024-08-08] MEDS ORDERED: MAGNESIUM HYDROXIDE/AL HYDROX 30 ML CUP PO PRN (19:30)
--- NOTE | 2024-08-08 20:21 | NUR ---
EVENING ASSESSMENT COMPLETE. SCHEDULED MEDS ADMIN PER EMAR. PT REPORTS BLE PAIN 08/22. PRN FOR PAIN AND REFLUX ADMIN PER EMAR. PT DENIES NAUSEA. DENIES SOB. BLE DRESSINGS CDI, ELEVATED ON PILLOWS. NO FURTHER NEEDS AT THIS TIME. BED ALARM FOR SAFETY. CALL LIGHT IN REACH.
[2024-08-08] MEDS ORDERED: SILVER SULFADIAZINE 400 GM JAR ONE (20:32)
[2024-08-08 22:09] LABS: PH, VENOUS 7.344 (7.31-7.41)
[2024-08-08 22:20] LABS: ANION GAP 14.2 (7-21); BUN/CREATININE RATIO 28.03 (6.0-28.6); CALCIUM 8.1 mg/dL (8.5-10.1); CREATININE, SERUM 2.39 mg/dL (0.55-1.02); POTASSIUM 5.2 mmol/L (3.5-5.1)
--- NOTE | 2024-08-08 22:47 | NUR ---
LAB IN ROOM FOR SCHEDULED DRAW. PT UP TO BR WITH SBA TO VOID AND HAVE SM BM. AT SINK TO WASH HANDS. BACK TO BED, KEILA WELL. DRESSINGS TO BLE CHANGED PER ORDER. PT KEILA WELL. BLE ELEVATED ON PILLOW. NO FURTHER NEEDS. BED ALARM IN PLACE.
[2024-08-08] MEDS ORDERED: GABAPENTIN 300 MG CAP PO SCH (23:45)
[2024-08-09] VITALS (10 sets, daily range): BP systolic 128–154; BP diastolic 60–74
--- NOTE | 2024-08-09 00:27 | NUR ---
MD PHONED FLOOR. UPDATES PROVIDED REGARDING CONCERNS OF BLEEDING DURING DRESSING CHANGE. MD WOULD LIKE TO BE PRESENT FOR DRESSING CHANGE IN THE AM. ALSO DISCUSSED PT REPORTING "NERVE SPIKES" IN BLE. NEW TELEPHONE ORDERS RECEIVED VERIFIED WITH READBACK METHOD. IN TO OFFER PT GABAPENTIN ORDERED. PT REFUSED TONIGHTS DOSE DUE TO SIDE EFFECTS AND WILL "THINK ABOUT IT" FOR TOMORROW. EDUCATION PROVIDED. PT UP TO BR TO VOID. BACK TO BED, KEILA WELL. SMALL AMOUNT SEROSANG DRAINAGE NOTED FROM INSIDE LLE DRESSING. DRESSING REINFORCED WITH ABD AND GAUZE. BLE ELEVATED ON PILLOW. NO FURTHER NEEDS. BED ALARM IN PLACE. CALL LIGHT IN REACH.
--- NOTE | 2024-08-09 02:05 | NUR ---
IV INFUSION COMPLETE. IV FLUSHED WITH NS. SITE WNL. NO NEEDS AT THIS TIME.
--- NOTE | 2024-08-09 03:02 | NUR ---
PT UP TO BR AND BACK TO BED, KEILA WELL. NO FURTHER NEEDS.
--- NOTE | 2024-08-09 04:05 | NUR ---
PT RESTING IN BED WITH EYES CLOSED. RESPIRATIONS EVEN. CALL LIGHT IN REACH.
[2024-08-09 05:29] LABS: PH, VENOUS 7.322 (7.31-7.41)
[2024-08-09 05:31] LABS: BASOPHILS 0.5 % (0-2); EOSINOPHILS 2.4 % (0-6); HEMATOCRIT 22.1 % (35.0-50.0); HEMOGLOBIN 7.5 g/dL (12.0-18.0); LYMPHOCYTES 17.8 % (24-44); MCH 29.8 (27-36); MCV 87.9 fl (81-99); MONOCYTES 7.9 % (0-12); NEUTROPHILS 71.4 % (39-80); PLATELET COUNT 566 K/uL (140-440); RBC 2.51 M/ul (4.3-5.7); RDW 16.2 (10.5-15.0)
[2024-08-09 05:50] LABS: ALBUMIN/GLOBULIN RATIO 0.21 (1.1-2.4); ANION GAP 12.2 (7-21); BILIRUBIN, TOTAL 0.1 mg/dL (0.2-1.0); BUN/CREATININE RATIO 29.04 (6.0-28.6); CREATININE, SERUM 2.41 mg/dL (0.55-1.02); MAGNESIUM 2.4 mg/dL (1.8-2.4); POTASSIUM 5.2 mmol/L (3.5-5.1); PROTEIN, TOTAL 5.7 g/dL (6.4-8.2)
--- NOTE | 2024-08-09 06:19 | NUR ---
PT RESTING WITH EYES CLOSED. AWAKENS EASILY. VS AND I&O OBTAINED. WEIGHT OBTAINED. PT BACK TO BED. BLE ELEVATED ON PILLOW. NO FURTHER NEEDS. CALL LIGHT IN REACH.
--- NOTE | 2024-08-09 07:17 | NUR ---
PT RESTING SOUNDLY AT TIME OF SHIFT REPORT, LEFT UNDISTURBED. CALL LIGHT AND NEEDEED ITEMS IN REACH
--- NOTE | 2024-08-09 09:05 | NUR ---
PT BACK FROM THE SHOWER SITTING UP IN THE CHAIR EATING BREAKFAST. AGREES SHE FEELS "GREAT" HAVING A SHOWER. CALL LIGHT IN REACH DENIES OTHER NEEDS
--- NOTE | 2024-08-09 09:09 | NUR ---
UR CONCURRENT REVIEW: MCG-PER MCG REVIEW DOES NOT GL DAY 2 FOR HYPERKALEMIA. VIARANCE COMPLETE [facility] INPT 07/31/24 ORDER MATCHES REG UPDATED CLINICALS FAXED TO [facility] FOR AUTH EXTENTION DISCHARGE TO HOME WHEN STABLE 08/12/24
--- NOTE | 2024-08-09 09:48 | NUR ---
DRESSING CHANGES WELL TOLERATED. DR NARANJO IN TO ASSESS AND SPEAK WITH PT ABOUT CONDITION AND PLAN GOING FORWARD. ALL QUESTIONS ANSWERED. PT RESTING EYES CLOSED AT THIS TIME CALL LIGHT IN REACH
--- NOTE | 2024-08-09 10:40 | NUR ---
PATIENT REQUESTING A SNACK. PROVIDED PUDDING. PATIENT DENIES ANY OTHER NEEDS AT THIS TIME. CALL LIGHT WITHIN REACH.
--- NOTE | 2024-08-09 11:00 | NUR ---
Spoke with Emily. She denies needs. Cont. to plan to go home with Shana. Pt denies needs. Cont. to have issues with potassium and unable to dc until this stabilizes.
--- NOTE | 2024-08-09 12:43 | NUR ---
PATIENT RESTING IN BED EATING LUNCH AND WATCHING TV. PATIENT MEDICATED PER EMR. DENIES ANY NEEDS AT THIS TIME. CALL LIGHT WITHIN REACH.
--- NOTE | 2024-08-09 15:00 | NUR ---
PATIENT RESTING IN BED. PROVIDED CUP OF COFFEE. PATIENT DENIES ANY OTHER NEEDS AT THIS TIME. CALL LIGHT WITHIN REACH.
[2024-08-09 16:08] LABS: PH, VENOUS 7.382 (7.31-7.41)
[2024-08-09 16:25] LABS: BASOPHILS 0.4 % (0-2); EOSINOPHILS 3.1 % (0-6); HEMATOCRIT 22.2 % (35.0-50.0); HEMOGLOBIN 7.5 g/dL (12.0-18.0); LYMPHOCYTES 22.2 % (24-44); MCH 29.9 (27-36); MCHC 33.8 g/dl (30-36); MCV 88.6 fl (81-99); MONOCYTES 7.2 % (0-12); NEUTROPHILS 67.1 % (39-80); PLATELET COUNT 584 K/uL (140-440); RDW 16.6 (10.5-15.0)
[2024-08-09 16:34] LABS: ANION GAP 13.3 (7-21); BUN/CREATININE RATIO 31.42 (6.0-28.6); CALCIUM 7.9 mg/dL (8.5-10.1); CREATININE, SERUM 2.45 mg/dL (0.55-1.02); POTASSIUM 5.3 mmol/L (3.5-5.1)
--- NOTE | 2024-08-09 17:00 | NUR ---
PATIENT MEDICATED PER EMR AND DINNER TRAY DELIVERED. PATIENT DENIES ANY OTHER NEEDS AT THIS TIME. CALL LIGHT WITHIN REACH.
--- NOTE | 2024-08-09 17:00 | NUR ---
PATIENT RESTING IN BED WATCHING TV REQUESTING TO USE BATHROOM. PATIENT AMBULATED TO BATHROOM VIA SBA. PATIENT DENIES ANY OTHER NEEDS AT THIS TIME. PATIENT REQUESTING SOME TIME ON TOILET. EDUCATED PATIENT ON USE OF BATHROOM CALL LIGHT WHEN READY TO TRANSFER BACK TO BED.
[2024-08-09] MEDS ORDERED: SODIUM BICARBONATE 650 MG TAB PO SCH (17:15)
--- NOTE | 2024-08-09 19:21 | NUR ---
REPORT RECEIVED FROM DAY SHIFT RN. PT LYING IN BED RESTING WITH EYES CLOSED. RESPIRATIONS EVEN. BED ALARM IN PLACE. CALL LIGHT IN REACH.
--- NOTE | 2024-08-09 21:24 | NUR ---
CALL LIGHT ANSWERED. PT UP TO BR WITH MINIMAL SBA TO VOID. AT SINK TO WASH HANDS. BACK TO BED, KEILA WELL. VS AND I&O OBTAINED. SCHEDULED MEDS ADMIN PER EMAR. PRN FOR 3/10 BLE PAIN ADMIN IN ANTICIPATION OF DRESSING CHANGE. NO FURTHER NEEDS AT THIS TIME. CALL LIGHT IN REACH. BED ALARM FOR SAFETY.
--- NOTE | 2024-08-09 22:58 | NUR ---
DRESSING CHANGE COMPLETE PER ORDER. PT KEILA WELL. BLE ELEVATED ON PILLOWS. NO FURTHER NEEDS. CALL LIGHT IN REACH. BED ALARM FOR SAFETY.
[2024-08-10] VITALS (9 sets, daily range): BP systolic 133–159; BP diastolic 61–75
--- NOTE | 2024-08-10 00:23 | NUR ---
PT RESTING IN BED WITH EYES CLOSED. RESPIRATIONS EVEN. CALL LIGHT IN REACH. BED ALARM FOR SAFETY.
--- NOTE | 2024-08-10 01:34 | NUR ---
CALL LIGHT ANSWERED. PT UP TO BR WITH SBA AND BACK TO BED. BLE ELEVATED ON PILLOWS. BED ALARM IN PLACE. CALL LIGHT IN REACH.
--- NOTE | 2024-08-10 03:29 | NUR ---
PT RESTING IN BED ON LEFT SIDE WITH EYES CLOSED. RESPIRATIONS EVEN. BED ALARM IN PLACE.
[2024-08-10 05:40] LABS: BASOPHILS 0.8 % (0-2); EOSINOPHILS 3.1 % (0-6); HEMATOCRIT 20.5 % (35.0-50.0); HEMOGLOBIN 6.9 g/dL (12.0-18.0); LYMPHOCYTES 23.1 % (24-44); MCH 30.2 (27-36); MCHC 33.8 g/dl (30-36); MCV 89.3 fl (81-99); MONOCYTES 8.5 % (0-12); NEUTROPHILS 64.5 % (39-80); PH, VENOUS 7.336 (7.31-7.41); PLATELET COUNT 543 K/uL (140-440); RBC 2.29 M/ul (4.3-5.7); RDW 16.3 (10.5-15.0)
--- NOTE | 2024-08-10 06:01 | NUR ---
PT AWAKE IN BED. UP TO BR WITH SBA TO VOID 200 ML CLEAR YELLOW URINE. DAILY WEIGHT OBTAINED. BACK TO BED, KEILA WELL. VS AND I&O OBTAINED. DRESSINGS TO BLE CDI, ELEVATED ON PILLOWS. PT DENIES FURTHER NEEDS. CALL LIGHT IN REACH. BED ALARM FOR SAFETY.
[2024-08-10 06:08] LABS: ALBUMIN/GLOBULIN RATIO 0.21 (1.1-2.4); ANION GAP 12.6 (7-21); BILIRUBIN, TOTAL 0.1 mg/dL (0.2-1.0); BUN/CREATININE RATIO 31.49 (6.0-28.6); CALCIUM 7.9 mg/dL (8.5-10.1); CREATININE, SERUM 2.54 mg/dL (0.55-1.02); POTASSIUM 5.6 mmol/L (3.5-5.1); PROTEIN, TOTAL 5.7 g/dL (6.4-8.2)
--- NOTE | 2024-08-10 06:28 | NUR ---
NOTIFIED OF MORNING LAB RESULTS. NEW TELEPHONE ORDERS RECEIVED VERIFIED WITH READBACK METHOD.
[2024-08-10] MEDS ORDERED: Calcium Gluconate in NS 1,000 MG/50 ML BAG IV ONE (06:30)
--- NOTE | 2024-08-10 07:20 | NUR ---
VERBAL REPORT RECEIVED FROM BARTOLOME COUGHLIN. PT RESTS IN BED WITH EYES CLOSED, RESP EVEN AND UNLABORED.
--- NOTE | 2024-08-10 11:00 | NUR ---
OLD DRESSINGS REMOVED FROM BLE. DR. FINNEY IN ROOM OBSERVES WOUNDS. VASE SOAK APPLIED TO WOUND BASES X 10 MINUTES. WOUNDS AND PERIWOUND SKIN CLEANSED AND LOOSE DEBRIDES REMOVED. DEBRIDSOFT LOLLY USED OVER YELLOW SLOUGH IN LEFT [place] WOUND BASE, LOOSE DEBRIDES REMOVED. WOUNDS PATTED DRY. PT TOLERATES CLEANSING WELL. NOTED SCATTERED AREAS OVER L FOOT WITH COMPLETE EPITHELIALIZATION. LEFT MEDIAL CALF WOUND BASE 100% PINK AND MOIST NON-GRANULAR TISSUE. LEFT [place] WOUND IS 60% PINK MOIST NON-GRANULAR TISSUE WITH PRESENCE OF EPITHELIALIZATION AROUND THE WOUND EDGES. 40% ADHERENT YELLOW SLOUGH DOWN THE CENTER OF THE WOUND BASE. NOTED AREAS OVER RIGHT FOOT AND ANKLE ARE CLOSED WITH 100% EPITHELIALIZATION, LEFT OPEN TO AIR. WOUNDS ON LLE ARE 100% PINK AND MOIST NON-GRANULAR TISSUE. NEW EPITHELIALIZATION NOTED ON WOUND EDGES OF ALL WOUNDS. GAUZE PAINTED WITH SILVADENE CREAM AND APPLIED OVER EACH WOUND BASED TO BLE AND SECURED WITH KERLIX GAUZE ROLL AND TAPE. PT TOLERATED DRESSING CHANGE WELL.
[2024-08-10 11:40] LABS: BASOPHILS 0.8 % (0-2); EOSINOPHILS 2.7 % (0-6); HEMATOCRIT 22.6 % (35.0-50.0); HEMOGLOBIN 7.4 g/dL (12.0-18.0); LYMPHOCYTES 20.4 % (24-44); MCH 29.6 (27-36); MCHC 32.9 g/dl (30-36); MCV 89.9 fl (81-99); MONOCYTES 6.7 % (0-12); NEUTROPHILS 69.4 % (39-80); PLATELET COUNT 635 K/uL (140-440); RBC 2.51 M/ul (4.3-5.7); RDW 16.7 (10.5-15.0)
[2024-08-10 11:42] LABS: ANION GAP 14.5 (7-21); BUN/CREATININE RATIO 34.53 (6.0-28.6); CALCIUM 8.3 mg/dL (8.5-10.1); CREATININE, SERUM 2.49 mg/dL (0.55-1.02); POTASSIUM 5.5 mmol/L (3.5-5.1)
--- NOTE | 2024-08-10 11:45 | NUR ---
Pt resting in bed, asking if its lunch time. Denies needs. I spoke with Dr. Klein earlier. Lower extremitiy wounds are healing, but pt will cont. to need dressing changes. K remains elevated.
[2024-08-10 12:28] LABS: ABO O; ANTIBODY SCREEN NEGATIVE; RH POSITIVE
--- NOTE | 2024-08-10 14:38 | NUR ---
UPON RE-ASSESSMENT OF BLE DRESSINGS NOTED A SMALL AMOUT OF DRAINAGE ON LLE, REINFORCED WITH ELASTIC BANDAGE.
[2024-08-10] MEDS ORDERED: ondansetron HCL 4 MG/2 ML VIAL IV PRN (15:15)
--- NOTE | 2024-08-10 16:53 | NUR ---
SBA to bathroom. Patient requested string cheese as a snack. Call light and personal items are within reach. No other cares were requested.
[2024-08-10 18:34] LABS: BILIRUBIN, URINE NEGATIVE (negative); BLOOD/HGB, URINE TRACE-I (Negative); KETONE, URINE NEGATIVE (Negative); LEUK ESTERASE, URINE NEGATIVE (negative); NITRITE, URINE NEGATIVE (negative); PH, URINE 5.5 (5-7)
--- NOTE | 2024-08-10 18:34 | NUR ---
PT REQUESTS PAIN MEDICATION FOR BLE PAIN, RECEIVED, SEE EMAR.
[2024-08-10 18:40] LABS: RED BLOOD CELLS, URINE 0-1 /hpf (0-5)
[2024-08-10 18:47] LABS: EPITHELIAL CELLS, URINE SQUAMOUS 1+ /lpf (0-1+)
[2024-08-10 18:48] LABS: BACTERIA, URINE RARE /hpf (negative); CASTS, URINE GRANULAR 1+ \\lpf; COLLECTION TYPE, URINE CLEAN CATCH; CRYSTALS, URINE NONE SEEN (0-1+); REFLEX CULTURE, URINE No (No)
--- NOTE | 2024-08-10 19:30 | NUR ---
RECEIVED REPORT FROM DAY SHIFT RN. PATIENT RESTING ON LEFT SIDE IN BED, BED ALARM SET. RESPIRATIONS EVEN AND UNLABORED. NO NEEDS IDENTIFIED AT THIS TIME. CALL LIGHT WITHIN REACH.
--- NOTE | 2024-08-10 19:34 | NUR ---
DR. FNINEY NOTIFIED OF DECREASED DRAINAGE FROM BLE WOUNDS. RECOMMENDED TO DECREASE DRESSING CHANGE FREQUENCY TO DAILY. NEW ORDER FOR DRESSING CHANGES DAILY AND PRN FOR DRAINAGE THROUGH DRESSING.
--- NOTE | 2024-08-10 20:26 | NUR ---
PT SBA TO BATHROOM. PT VOIDED AND NOW BACK IN BED. OXYACETYLENE WELDER OBTAINED VITALS AND I&O. PT STATES NO FURTHER NEEDS AT THIS TIME. CALL LIGHT WITHIN REACH AND BED ALARM ON.
--- NOTE | 2024-08-10 21:02 | NUR ---
PATIENT RESTING IN BED COMFORTABLY WATCHING TV. VS OBTAINED AND RECORDED. SCHEDULED MEDS ADMINISTERED PER AUG. IV FLUSHES WITHOUT DIFFICULTY. PATIENT DENIES FURTHER NEEDS. ASSESSMENT COMPLETED. BED ALARM ON, CALL LIGHT WITHIN REACH.
--- NOTE | 2024-08-10 22:38 | NUR ---
PATIENT WOKE TO RN ENTERING ROOM. AMBULATORY TO RESTROOM WITH MINIMAL SBA AND USE OF FWW. BACK TO BED WITHOUT DIFFICULTY. PATIENT DENIES OTHER NEEDS, CALL LIGHT WITHIN REACH.
[2024-08-11] VITALS (13 sets, daily range): BP systolic 135–175; BP diastolic 63–82
--- NOTE | 2024-08-11 00:11 | NUR ---
CALL LIGHT ANSWERED. PT NEEDED TO USE BATHROOM. SMALL ELECTRIC ENGINE TECHNICIAN SBA TO BATHROOM. PT VOIDED AND ASSISTED BACK TO BED. OUTPUT MEASURED AND PT STATES NO FURTHER NEEDS AT THIS TIME. CALL LIGHT WITHIN REACH.
--- NOTE | 2024-08-11 00:39 | NUR ---
PATIENT RESTING IN BED COMFORTABLY, WATCHING TV. DENIES ANY NEEDS, CALL LIGHT WITHIN REACH.
--- NOTE | 2024-08-11 01:42 | NUR ---
IN ROOM TO ANSWER CALL LIGHT. PATIENT REQUESTED TO GET UP TO RESTROOM. AMBULATORY WITH MINIMAL SBA AND USE OF FWW. RETURNED TO BED WITHOUT DIFFICULTY. BED ALARM ON. VS OBTAINED AND RECORDED. PATIENT DENIES FURTHER NEEDS. CALL LIGHT IN REACH.
--- NOTE | 2024-08-11 03:38 | NUR ---
PATIENT RESTING ON RIGHT SIDE WITH EYES CLOSED. RESPIRATIONS EVEN AND UNLABORED. NO NEEDS IDENTIFIED. CALL LIGHT WITHIN REACH.
[2024-08-11 05:29] LABS: BASOPHILS 0.9 % (0-2); EOSINOPHILS 2.8 % (0-6); HEMATOCRIT 20.1 % (35.0-50.0); HEMOGLOBIN 6.7 g/dL (12.0-18.0); LYMPHOCYTES 22.4 % (24-44); MCH 29.6 (27-36); MCHC 33.2 g/dl (30-36); MCV 89.3 fl (81-99); MONOCYTES 7.1 % (0-12); NEUTROPHILS 66.8 % (39-80); PLATELET COUNT 576 K/uL (140-440); RBC 2.25 M/ul (4.3-5.7); RDW 16.4 (10.5-15.0)
--- NOTE | 2024-08-11 05:30 | NUR ---
PATIENT WOKE TO RN ENTERING THE ROOM. ASSESSMENT COMPLETED. PATIENT AMBULATED TO RESTROOM WELL WITH MINIMAL SBA. PATIENT DENIES FURTHER NEEDS, CALL LIGHT IN REACH.
[2024-08-11 05:49] LABS: ALBUMIN/GLOBULIN RATIO 0.21 (1.1-2.4); ANION GAP 10.4 (7-21); BILIRUBIN, TOTAL 0.1 mg/dL (0.2-1.0); BUN/CREATININE RATIO 33.96 (6.0-28.6); CALCIUM 8.1 mg/dL (8.5-10.1); CREATININE, SERUM 2.62 mg/dL (0.55-1.02); POTASSIUM 5.4 mmol/L (3.5-5.1); PROTEIN, TOTAL 5.7 g/dL (6.4-8.2)
--- NOTE | 2024-08-11 05:50 | NUR ---
PATIENT REPORTS 0/10 PAIN, BUT REPORTS FEELING "MILDLY BLOATED" IN THE ABDOMEN. ON ASSESSMENT, ABDOMEN IS SOFT AND PATIENT DENIES PAIN TO PALPATION. NO OTHER NEEDS IDENTIFIED, CALL LIGHT IN REACH.
--- NOTE | 2024-08-11 05:54 | NUR ---
STANDING WEIGHT OBTAINED. PATIENT RETURNED TO BED WITHOUT DIFFICULTY, BED ALARM SET. CALL LIGHT IN REACH.
--- NOTE | 2024-08-11 06:46 | NUR ---
TC PLACED TO DR. CAMILO TO INFORM OF MORNING LAB RESULTS BY BARTOLOME WEST. NEW ORDERS RECEIVED, VERIFIED USING REPEAT BACK METHOD.
--- NOTE | 2024-08-11 07:07 | NUR ---
REPORT RECEIVED FROM BRETT RN AND BARTOLOME VALENCIA. PT RESTING IN BED WITH EYES CLOSED, RR EVEN AND UNLABORED. IV TO UPPER R ARM FLUSHED WNL AND SALINE LOCKED. PT WAKES WITH THIS ACTIVITY. NO REQUESTS AT THIS TIME, CALL LIGHT IN REACH.
[2024-08-11 07:17] LABS: ABO O; RH POSITIVE
[2024-08-11 07:19] LABS: IS CROSSMATCH COMPATIBLE
--- NOTE | 2024-08-11 07:59 | NUR ---
1 UNIT PRBC STARTED AT 0757, SEE BLOOD ADMINISTRATION. PT RESTING IN BED WATCHING TELEVISION, REPORTS SHE FEELS COMFORTABLE. THIS RN REMAINS IN ROOM AT THIS TIME.
--- NOTE | 2024-08-11 08:05 | NUR ---
MEDCIATION ADMINISTERED, SEE MAR. BREAKFAST TRAY ARRIVES. PT SITTING UP IN BED EATING BREAKFAST AT THIS TIME. THIS RN REMAINS IN ROOM.
--- NOTE | 2024-08-11 08:13 | NUR ---
15 MINUTE BLOOD ADMINISTRATION VITALS TAKEN AND RECORDED AT THIS TIME. VSS. ADMINISTRATION RATE INCREASED TO 200ML/HR. PT TOLERATING WELL. RN REMAINS IN ROOM FOR ASSESSMENT.
--- NOTE | 2024-08-11 08:21 | NUR ---
ASSESSMENT COMPLETE. PT FINISHES BREAKFAST. DRESSING TO RLE DRY AND INTACT WITH SCANT AMOUNT OF RED SHADOWING TO UPPER LATERAL PORTION OF GAUZE. DRESSING TO LLE C/D/I. PT REPORTS BILAT COVINGTON PAIN IS A 3/10. 1 UNIT PRBC INFUSING TO UPPER L ARM WNL. PT TOLERATING WELL. PT EDUCATED ON S/S TRANSFUSION REACTION, VERBALIZES UNDERSTANDING. PT REMAINS RESTING IN BED, NO OTHER REQUESTS, CALL LIGHT IN REACH. BREAKFAST TRAY REMOVED.
[2024-08-11] MEDS ORDERED: SILVER SULFADIAZINE 400 GM JAR TOP SCH (09:00)
--- NOTE | 2024-08-11 09:42 | NUR ---
PT AMBULATES WITH SBA TO RESTROOM, VOIDS, AND AMBULATES TO RECLINER. PT RESTING IN RECLINER WITH BLE ELEVATED ON A PILLOW AT THIS TIME. SHE IS REQUESTING CHEERIOS AND SOME BROTH - PROVIDED. ONE UNIT OF PRBC CONTINUE INFUSING WNL, PT CONTINUES TO TOLERATE WELL. NO OTHER REQUESTS, CALL LIGHT IN REACH.
--- NOTE | 2024-08-11 10:12 | NUR ---
ONE UNIT PRBC FINISHES INFUSING 1006. POST ADMINISTRATION VS TAKEN AND RECORDED. PT RESTING IN RECLINER WITH BLE ELEVATED ON PILLOW, REPORTS NO DISCOMFORT OR PAIN AT THIS TIME. HECTOR FROM CASE MANAGEMENT ARRIVES TO TALK WITH PT. PT QUESTIONS AND CONCERNS ADDRESSED. PT REMAINS UP IN CHAIR, NO OTHER REQUESTS, CALL LIGHT IN REACH, CURRENTLY TALKING ON CELL PHONE.
--- NOTE | 2024-08-11 10:13 | NUR ---
ALERT AND ORIENTED IN RECLINER. CONTINUES TO PLAN TO DC TO HOME WITH KALPANA ADAMSON. STATES SHE PLANS TO HAVE FRIEND TRANSPORT FOR OUTPATIENT DRESSING CHANGES. NO OTHER NEEDS AT THIS TIME FROM CM.
[2024-08-11 11:07] LABS: BASOPHILS 0.8 % (0-2); EOSINOPHILS 2.9 % (0-6); HEMATOCRIT 27.5 % (35.0-50.0); HEMOGLOBIN 9.3 g/dL (12.0-18.0); LYMPHOCYTES 17.6 % (24-44); MCH 29.8 (27-36); MCHC 33.7 g/dl (30-36); MCV 88.5 fl (81-99); MONOCYTES 5.7 % (0-12); PLATELET COUNT 642 K/uL (140-440); RBC 3.11 M/ul (4.3-5.7); RDW 16.1 (10.5-15.0)
[2024-08-11 11:14] LABS: ANION GAP 13.8 (7-21); BUN/CREATININE RATIO 34.67 (6.0-28.6); CALCIUM 8.3 mg/dL (8.5-10.1); CREATININE, SERUM 2.48 mg/dL (0.55-1.02); POTASSIUM 5.8 mmol/L (3.5-5.1)
--- NOTE | 2024-08-11 11:23 | NUR ---
PRN PAIN MEDICATION ADMINISTERED PROPHYLACTICALLY PRIOR TO DRESSING CHANGE. PT RESTING IN BED ON R SIDE WATCHING TELEVISION AT THIS TIME. REPORTS HER BLE C[place] PAIN IS A 3/10 "OFF AND ON". NO OTHER REQUESTS, CALL LIGHT IN REACH.
--- NOTE | 2024-08-11 11:30 | NUR ---
MD NOTIFIED OF PTs POTASSIUM OF 5.8 ON REPEAT LABS. MD GIVES VERBAL ORDER TO ADMINISTER MEDICATION NOW INSTEAD OF 1500, ORDER CHANGED.
--- NOTE | 2024-08-11 11:50 | NUR ---
BLOOD SUGAR CHECKED AND RECORDED. MEDICATION ADMINISTERED, SEE MAR. PT FINISHES WORKING WITH PHYSICAL THERAPY AND IS BACK UP IN HER RECLINER AND EXCITED FOR LUNCH. NO REQUESTS AT THIS TIME, CALL LIGHT IN REACH.
[2024-08-11] MEDS ORDERED: SODIUM POLYSTYRENE SULFONATE 15 GM/60 ML UDC PO ONE ×2 (12:00→15:00)
--- NOTE | 2024-08-11 13:00 | NUR ---
PT AMBULATES WITH SBA FROM RECLINER TO RESTROOM, VOIDS, AND GETS INTO BED. WARM BLANKET PROVIDED. STELLA BANDAGE AND GAUZE REMOVED FROM LLE, GAUZE REMOVED FROM RLE. BILAT WOUNDS CLEANSED WITH STERILE SALINE AND VASHE WOUND CLEANSER, PATTED DRY. SILVADINE APPLIED TO ALL AREAS OF WOUNDS. RLE WRAPPED WITH GAUZE ROLL AND TAPED IN PLACE. LLE WRAPPED WITH 2 GAUZE ROLLS AND STELLA BANDAGE. PT TOLERATES WELL. PT HAS NO OTHER REQUESTS AT THIS TIME, CURRENTLY WATCHING TELEVISION. CALL LIGHT AND PERSONAL BELONGINGS IN REACH.
--- NOTE | 2024-08-11 13:53 | NUR ---
RADHA GALLAGHER ALERTS THIS RN TO PTs INCREASED BLOOD PRESSURE. BLOOD PRESSURE DOUBLE CHECKED BY THIS RN SHOWS SYSTOLIC IN THE 170s. PRN BLOOD PRESSURE ADMINISTERED AT THIS TIME. PT RESTING IN BED, REPORTS BLE PAIN IS A 2/10 AND "FEELS GOOD". DIETARY BRINGS SALAD FOR PT, PT BEGINS EATING. PT HAS NO OTHER REQUESTS AT THIS TIME, CALL LIGHT IN REACH.
--- NOTE | 2024-08-11 14:13 | NUR ---
REPEAT BP 15 MIN FOLLOWING PRN BP MEDICATION IS 164/76(97) WITH HR 84. PT HAS NO COMPLAINTS OF DISCOMFORT, HEADACHE, OR CHEST PAIN AT THIS TIME. RESTING IN BED WATCHING TELEVISION, NO REQUESTS, CALL LIGHT IN REACH.
--- NOTE | 2024-08-11 15:15 | NUR ---
PT RESTING IN BED WITH EYES CLOSED, RR EVEN AND UNLABORED. WAKES TO VOICE. MEDICATION ADMINISTERED, SEE MAR. PT HAS NO REQUESTS AT THIS TIME, CALL LIGHT IN REACH.
--- NOTE | 2024-08-11 15:30 | NUR ---
Pt walking in estrada. Denies needs.
--- NOTE | 2024-08-11 16:56 | NUR ---
MEDICATION ADMINISTERED, SEE MAR. PT RESTING IN BED WITH HOB ELEVATED EATING SUPPER AT THIS TIME. NO REQUESTS, CALL LIGHT IN REACH.
--- NOTE | 2024-08-11 17:36 | NUR ---
RADHA GALLAGHER PRESENT IN ROOM APPLYING TELE #5 ORDERED PER MD FOR HYPERKALEMIA. PT RESTING IN BED AT THIS TIME, NO DISCOMFORT. RADHA GALLAGHER REMAINS IN ROOM.
[2024-08-11 18:13] LABS: ANION GAP 13.3 (7-21); BUN/CREATININE RATIO 37.5 (6.0-28.6); CALCIUM 8.1 mg/dL (8.5-10.1); CREATININE, SERUM 2.4 mg/dL (0.55-1.02); POTASSIUM 5.3 mmol/L (3.5-5.1)
--- NOTE | 2024-08-11 19:15 | NUR ---
RECEIVED REPORT FROM JAS TELLO. PT IN BED, WATCHING TV. VOICED NO NEW NEEDS OR CONCERNS
--- NOTE | 2024-08-11 22:50 | NUR ---
SBA TO BATHROOM. PT REQUESTED AND RECEIVED CUP COFFEE. FLUID'S WITHIN PARAMETERS. NO OTHER NEEDS.
--- NOTE | 2024-08-11 23:39 | NUR ---
ROUNDED ON PT. PT ON BACK, EYES CLOSED, RESP EVEN AND UNLABORED.
[2024-08-12] VITALS (10 sets, daily range): BP systolic 138–154; BP diastolic 61–84
--- NOTE | 2024-08-12 01:12 | NUR ---
PT REQUESTED PAIN MEDICATION FOR 3/10 PAIN, RLL. PRIOR TO THIS, PT HAD FOOD WARMED UP FROM DINNER, ATE 100%. EYES CLOSED WHEN RN LEFT ROOM. PT HOPING TO SLEEP.
--- NOTE | 2024-08-12 02:45 | NUR ---
ROUNDED ON PT. PT STATED SHE FELT HEAVINESS BELLY, WAS LAYING FLAT. HOB ELEVATED, PT STATED BETTER. WITHIN THE LAST HOUR AND HALF, PT HAS ATE PART OF HER DINNER, AND COFFEE PRIOR TO THAT. STATED THE PAIN HAS RESOLVED TO A ONE.
--- NOTE | 2024-08-12 04:10 | NUR ---
PT CALLED, SBA TO BATHROOM TO VOID. DAILY STANDING WEIGHT 69.5. BACK TO BED.
[2024-08-12 05:30] LABS: BASOPHILS 0.9 % (0-2); EOSINOPHILS 2.7 % (0-6); HEMATOCRIT 24.6 % (35.0-50.0); HEMOGLOBIN 8.2 g/dL (12.0-18.0); LYMPHOCYTES 16.4 % (24-44); MCH 29.4 (27-36); MCHC 33.5 g/dl (30-36); MCV 87.9 fl (81-99); MONOCYTES 7.2 % (0-12); NEUTROPHILS 72.8 % (39-80); PLATELET COUNT 578 K/uL (140-440); RDW 16.2 (10.5-15.0)
[2024-08-12 05:48] LABS: ALBUMIN 1.1 g/dL (3.4-5.0); ALBUMIN/GLOBULIN RATIO 0.22 (1.1-2.4); ANION GAP 13.4 (7-21); BILIRUBIN, TOTAL 0.1 mg/dL (0.2-1.0); BUN/CREATININE RATIO 35.68 (6.0-28.6); CALCIUM 8.1 mg/dL (8.5-10.1); CREATININE, SERUM 2.41 mg/dL (0.55-1.02); POTASSIUM 5.4 mmol/L (3.5-5.1)
--- NOTE | 2024-08-12 06:19 | NUR ---
PT HERE FOR TO TO JEANETTE LE. WRAPPED, WITH STRONG PEDAL PULSES. TEL5 WITH NSR, 70-80'S. PT STATES SHE DID SLEEP OFF AND ON. IV L UPPER ARM, FLUSH, NO BLOOD RETURN. PT CALLS APPROPRIATE; SBA WITH FWW WHEN UP. COUPLE SMALL SOFT BM'S THIS SHIFT. PAIN MEDICATION X1 THIS SHIFT FOR 3/10 LOWER LEG PAIN.
--- NOTE | 2024-08-12 06:47 | NUR ---
PT CALLED, SBA TO BATHROOM. WANTING BREAKFAST, BUT WILL NAP BEFORE. DRESSINGS UNCHANGED.
--- NOTE | 2024-08-12 07:36 | NUR ---
RECIEVED SHIFT REPORT FROM WING. PT IS AWAKE. BUNCHER HAND IN ROOM ASSISTING PT WITH NEEDS. CALL LIGHT IN REACH.
[2024-08-12] MEDS ORDERED: FUROSEMIDE 20 MG TAB PO ONE (08:30)
[2024-08-12] MEDS ORDERED: LACTATED RINGER'S 1,000 ML IV SCH (08:30)
--- NOTE | 2024-08-12 09:14 | NUR ---
UR CONCURRENT REVIEW: MCG-PER MCG REVIEW DOES NOT GL DAY 2 FOR HYPERKALEMIA. VIARANCE COMPLETE [facility] INPT 07/31/24 ORDER MATCHES REG UPDATED CLINICALS FAXED TO [facility] FOR AUTH EXTENTION DISCHARGE TO HOME WHEN STABLE 08/15/2024
--- NOTE | 2024-08-12 09:27 | NUR ---
MORNING ASSESSMENT COMPLETE. PT IS AWAKE IN BED, COMPLAINING OF PAIN 3/10 ON THE TOP LEFT FOOT. DENIES ANY OTHER DISCOMFORTS. DRESSINGS INTACT BIALT. SCANT SHADOWING OF DRAINAGE NOTED TO THE RIGHT LE. PT RECIEVED PO PAIN MEDICATION WILL PERFORM DRESSING CHANGE ONCE MEDICATION TAKES EFFECT FOR PT COMFORT. CALL LIGHT IN REACH
--- NOTE | 2024-08-12 10:07 | NUR ---
PT with patient ambulating hallways.
--- NOTE | 2024-08-12 10:41 | NUR ---
VISITED DURING SPIRITUAL CARE ROUNDS. PT APPEARED TO BE SLEEPING. DID NOT DISTURB.
--- NOTE | 2024-08-12 11:30 | NUR ---
Spoke with pt. She denies need. Pt cont. to plan for 1-2 more day stay.
--- NOTE | 2024-08-12 12:13 | NUR ---
WONND DRESSING CHANGES DONE. SEE WOUND ASSESSMENT. PT TOLERATED WELL.
--- NOTE | 2024-08-12 14:18 | NUR ---
PT IS AWAKE IN BED, EATING LUNCH. DENIES NEEDS. CALL LIGHT IN REACH.
--- NOTE | 2024-08-12 15:30 | NUR ---
PT AWAKE IN BED, DENIES NEEDS. CALL LIGHT IN REACH.
--- NOTE | 2024-08-12 17:00 | NUR ---
PT AWAKE ON THE PHONE, CALL LIGHT IN REACH.
--- NOTE | 2024-08-12 18:37 | NUR ---
PT AWAKE IN BED, CALL LIGHT IN REACH. DENIES NEEDS.
--- NOTE | 2024-08-12 19:30 | NUR ---
REPORT RECEIVED FROM BARTOLOME ZHAO. pt RESTING IN BED WITH EYES CLOSED. BREATHING UNLABORED. NO DISTRESS NOTED.
--- NOTE | 2024-08-12 20:27 | NUR ---
ART APPRAISER OBTAINED VITALS AND I7O. PT STATES NO FURTHER NEEDS AT THIS TIME. CALL LIGHT WITHIN REACH.
--- NOTE | 2024-08-12 21:15 | NUR ---
IN ROOM FOR ASSESSMENT AND MEDICATION ADMINISTRATION. pt RESTING IN BED, DROWSY. ATTEMPT TO FLUSH IV, DIFFICULT TO FLUSH. ATTEMPT AT NEW IV START X 1, UNSUCCESSFUL. CCU RN TO ATTEMPT. NOTIFIED IVFS NOT INFUSING PER ORDER. CALL LIGHT IN REACH.
--- NOTE | 2024-08-12 22:00 | NUR ---
ASSESSMENT COMPLETE. pt DENIES PAIN. NEW US GUIDED IV STARTED BY BARTOLOME SIEGEL IN RIGHT ARM. IVF NOW INFUSING WNL. CALL LIGHT AND PERSONAL SUPPLIES IN REACH.
[2024-08-13] VITALS (10 sets, daily range): BP systolic 136–155; BP diastolic 64–78
--- NOTE | 2024-08-13 00:05 | NUR ---
CALL LIGHT ANSWERED. pt REQUESTING PRN PAIN MEDICATION FOR 3/10 [place] PAIN IN LEGS BILATERALLY. PRN MEDICATION ADMINISTERED. ICE WATER REFILLED. CALL LIGHT IN REACH. IV SITE ASSESSED, IVF INFUSING WNL.
--- NOTE | 2024-08-13 00:52 | NUR ---
pt RESTING IN BED ON RIGHT SIDE, BREATHING EQUAL AND UNLABORED. NO DISTRESS NOTED. IVF INFUSING WNL.
--- NOTE | 2024-08-13 01:27 | NUR ---
MIME ARTIST OBTAINED VITALS AND I&O. PT STATES NO NEEDS AT THIS TIME. CALL LIGHT WITHIN REACH.
--- NOTE | 2024-08-13 01:54 | NUR ---
CALL LIGHT ANSWERED. pt REQUESTS PAIN PILL. STATES "WHEN DID I LAST GET IT? OH WELL ITS NOT HURTING ANYMORE, BUT THAT RIGHT FOOT WAS HURTING". pt EATING PO SNACK AND DRINKING WATER. IVF INFUSING WNL. CALL LIGHT IN REACH.
[2024-08-13 05:17] LABS: EOSINOPHILS 2.9 % (0-6); HEMOGLOBIN 8.3 g/dL (12.0-18.0); LYMPHOCYTES 16.4 % (24-44); MCH 29.4 (27-36); MCHC 33.2 g/dl (30-36); MCV 88.5 fl (81-99); MONOCYTES 7.2 % (0-12); NEUTROPHILS 72.5 % (39-80); PLATELET COUNT 588 K/uL (140-440); RBC 2.82 M/ul (4.3-5.7); RDW 15.9 (10.5-15.0)
--- NOTE | 2024-08-13 05:19 | NUR ---
pt SLEEPING, AWAKENS TO VOICE. VSS. DENIES TOILETING NEEDS. CALL LIGHT AND PERSONAL SUPPLIES WITHIN REACH. IVF INFUSING ORDERED. pt REQUESTS TO SLEEP.
[2024-08-13 05:40] LABS: ALBUMIN/GLOBULIN RATIO 0.21 (1.1-2.4); ANION GAP 13.1 (7-21); BILIRUBIN, TOTAL 0.1 mg/dL (0.2-1.0); BUN/CREATININE RATIO 35.71 (6.0-28.6); CALCIUM 8.1 mg/dL (8.5-10.1); CREATININE, SERUM 2.24 mg/dL (0.55-1.02); POTASSIUM 5.1 mmol/L (3.5-5.1); PROTEIN, TOTAL 5.8 g/dL (6.4-8.2)
--- NOTE | 2024-08-13 07:25 | NUR ---
RECIEVED SHIFT REPORT FROM BARTOLOEM VALENCIA. PT IS RESTING IN BED, EYES CLOSED BREATHING EVEN AND UNLABORED. CALL LIGHT IN REACH.
--- NOTE | 2024-08-13 08:22 | NUR ---
PATIENT IN BED AT THIS TIME. MANAGER HUMAN CAPITAL WENT INTO PATIENTS ROOM FOR HOURLY ROUNDS AND BLOODSUGARS. CALL LIGHT WITHIN REACH, NO FURTHER NEEDS AT THIS TIME.
--- NOTE | 2024-08-13 08:23 | NUR ---
MORNING ASSESSMENT COMPLETE. PT AWAKE IN BED, EATING BREAKFAST. DENIES PAIN. DRESSINGS BILAT ON LEGS CDI. PEDAL PULSES +2. NO NEEDS AT THIS TIME. CALL LIGHT IN REACH.
--- NOTE | 2024-08-13 10:19 | NUR ---
PATIENT IN BED AT THIS TIME. IRON MOLDER HELPER CHARTED I&O'S, RN CHARTED VITALS. CALL LIGHT WITHIN REACH, NO FURTHER NEEDS AT THIS TIME.
--- NOTE | 2024-08-13 10:28 | NUR ---
PT AWAKE IN BED, EATING CHIPS. DISCUSSED WITH PT DRESSING CHANGES WILL BE DONE AT 1100 AND WILL TAKE UPDATED PICTURES. AGREED TO TAKING A PRN PAIN PILL AT TO HELP WITH PAIN DURING THE PROCEDURE. DENIES NEEDS A THIS TIME. CALL LIGHT IN REACH.
[2024-08-13] MEDS ORDERED: VITAMIN A TOP SCH (11:27)
[2024-08-13] MEDS ORDERED: [UNRECOGNIZED DRUG - OTHER] TOP SCH (11:27)
--- NOTE | 2024-08-13 11:30 | NUR ---
DRESSINGS REMOVED FROM BLE, WOUNDS CLEANSED WITH VASE AND PATTED DRY. DR. REG BOWENS OBSERVE WOUNDS. NEW ORDERS RECEIVED FOR WOUND CARE. A&D OINTMENT TO RIGHT LEG WOUND AND LEFT MEDIAL LEG WOUND DAILY. SILVADENE CREAM TO LEFT LEG WOUNDS DAILY. A&D OINTMENT APPLIED TO ADAPTIC DRESSING AND PLACED OVER RIGHT LEG WOUNDS AND LEFT MEDIAL LEG WOUND AND SECURED WITH NON-ADHERENT DRESSINGS AND KERLIX GAUZE ROLL. SILVADENE CREAM APPLIED TO ADAPTIC AND PLACED OVER LEFT [place] AND FOOT WOUND BASES, SECURED WITH NON-ADHERENT DRESSING AND KERLIX GAUZE ROLL. PT TOLERATED WELL. PICTURES OBTAINED, SEE PAPER CHART.
--- NOTE | 2024-08-13 11:30 | NUR ---
DRESSINGS REMOVED FROM BLE, WOUND CLEANSED WITH VASE AND PATTED DRY. DR. REG BOWENS OBSERVE WOUNDS. NEW ORDERS RECEIVED FOR WOUND CARE. A&D OINTMENT TO WOUND BASES DAILY. A&D OINTMENT APPLIED TO ADAPTIC DRESSING AND PLACED OVER EACH WOUND BED AND SECURED WITH NON-ADHERENT DRESSING AND KERLIX GAUZE ROLL. PT TOLERATED WELL. PICTURES OBTAINED, SEE PAPER CHART.
--- NOTE | 2024-08-13 12:38 | NUR ---
PATIENT IN CHAIR AT THIS TIME. COAL LOADER CHARTED BLOODSUGAR AND HOURLY ROUNDS. CALL LIGHT WITHIN REACH, NO FURTHER NEEDS AT THIS TIME.
--- NOTE | 2024-08-13 13:52 | NUR ---
PATIENT IN BED AT THIS TIME. POCKET MARKER CHARTED VITALS AND I&O'S. CALL LIGHT WITHIN REACH, NO FURTHER NEEDS AT THIS TIME.
--- NOTE | 2024-08-13 14:00 | NUR ---
PT ASSISTED TO BRM BY SHENA KIM. SBA FWW, TOLERATED WELL. BACK IN CHAIR. DENIES NEEDS AT THIS TIME. CALL LIGHT IN REACH
--- NOTE | 2024-08-13 15:43 | NUR ---
PT IN RECLINER, WATCHING TV. CALL LIGHT IN REACH. DENIES NEEDS.
[2024-08-13 16:10] LABS: ANION GAP 12.1 (7-21); BUN/CREATININE RATIO 37.86 (6.0-28.6); CALCIUM 7.9 mg/dL (8.5-10.1); CREATININE, SERUM 2.06 mg/dL (0.55-1.02); POTASSIUM 5.1 mmol/L (3.5-5.1)
--- NOTE | 2024-08-13 17:52 | NUR ---
PATIENT WAS IN HER CHAIR AT THIS TIME, PATIENT NEEDED TO USE THE RESTROOM. BRIM WELT SEWING MACHINE OPERATOR ASSISTED PATIENT BACK TO BED AT THIS TIME. CHARTED VITALS AND I&O'S, GOT PATIENT A WARM BLANKET, HOT TEA AND FRESH ICE WATER. CALL LIGHT WITH IN REACH AND NOTHING ELSE NEEDED AT THIS TIME.
--- NOTE | 2024-08-13 19:20 | NUR ---
PT COMPLAINING OF 3/10, BILAT LEG PAIN. PRN PAIN MEDICATIONS GIVEN (PER EMAR). DENIES FURTHER NEEDS. CALL LIGHT IN REACH
--- NOTE | 2024-08-13 20:08 | NUR ---
RECEIVED REPORT FROM JAS LOZA RN, AT 1910, PT IN BED. REQUESTED PAIN MED. DENIA MARK RN ADMINISTERED MEDICATION. THIS RN IN ROUNDED ON PT. LIGHTS OUT, PT LAYING ON HER RIGHT SIDE, EYES CLOSED THIS THIS RN LEFT ROOM. WHITE BOARD UPDATED.
[2024-08-13] MEDS ORDERED: SODIUM BICARBONATE 650 MG TAB PO SCH (21:00)
--- NOTE | 2024-08-13 22:30 | NUR ---
PT CALLED, SBA LINE MANAGEMENT, TO BATHROOM, VOIDED. PT CONCERNED ABOUT WHY NOT PEEING MUCH. "I AM GETTING SOMETHING TO MAKE ME PEE BUT I DONT' THINK I AM PEEING MUCH". CONCERNED ABOUT WHY HER "BELLY" IS FEELS BLOATED, WHY SHE HER HANDS ARE PUFFY. REASSURANCES GIVEN AT THIS TIME. NOTED RLE, OUTER MARNI HAS QUARTER SIZE RED STAIN. LLE C/D/I. PT RECEIVED SF PUDDING, CHEESE STICK FOR SNACK.
[2024-08-14] VITALS (8 sets, daily range): BP systolic 126–167; BP diastolic 69–85
--- NOTE | 2024-08-14 00:50 | NUR ---
PT CURRENTLY WITH EYES CLOSED, RESP EVEN AND UNLABORED. AT 0006 PT WAS GIVEN MAALOX FOR "BLOATING" FEELING.
--- NOTE | 2024-08-14 01:40 | NUR ---
PT UP TO BATHROOM TO VOID. REQUESTED AND RECEIVED LOW SODIUM BROTH, AND A CRACKER. NO OTHER NEEDS AT THIS TIME.
--- NOTE | 2024-08-14 05:01 | NUR ---
PUMP ALARMING, NEW BAG IV FLUIDS INFUSING DIRECTED, IV SITE WNL. VS AND I&O'S COLLECTED, PRIMARY RN IN ROOM COMPLETING ASSESSMENT. CALL LIGHT IN REACH.
[2024-08-14 05:25] LABS: BASOPHILS 1.6 % (0-2); EOSINOPHILS 3.3 % (0-6); HEMATOCRIT 25.6 % (35.0-50.0); HEMOGLOBIN 8.5 g/dL (12.0-18.0); LYMPHOCYTES 18.6 % (24-44); MCH 29.8 (27-36); MCHC 33.2 g/dl (30-36); MCV 89.7 fl (81-99); MONOCYTES 6.3 % (0-12); NEUTROPHILS 70.2 % (39-80); PLATELET COUNT 581 K/uL (140-440); RBC 2.85 M/ul (4.3-5.7)
[2024-08-14 05:36] LABS: ANION GAP 11.3 (7-21); BUN/CREATININE RATIO 33.02 (6.0-28.6); CALCIUM 8.3 mg/dL (8.5-10.1); CREATININE, SERUM 2.18 mg/dL (0.55-1.02); PHOSPHORUS, INORGANIC 4.8 mg/dL (2.5-4.9); POTASSIUM 5.3 mmol/L (3.5-5.1)
--- NOTE | 2024-08-14 06:16 | NUR ---
PT CONTINUES TO RECEIVE DRESSING CHANGES TO JEANETTE LE. LLE DRESSING C/D/I; RIGHT DRESSING WITH SANGUINEOUS DRESSING, QUARTER SIZE, UNCHANGED THIS SHIFT. PAIN MED AFTER 1900, MAALOX GIVEN AFTER MIDNOC FOR BLOATING FEELING. RA, ROM LINE MANAGEMENT. CALLS APPROPRIATE. STATED SHE SLEPT GOOD, WOKE SEVERAL TIMES. IV PATENT, INFUSING LR.
--- NOTE | 2024-08-14 07:43 | NUR ---
RECIEVED SHIFT REPORT FROM BARTOLOME DIMAS. PT RESTING IN BED, EYES CLOSED, BREATHING EVEN AND UNLABORD. CALL LIGHT IN REACH.
--- NOTE | 2024-08-14 08:45 | NUR ---
MORNING ASSESSMENT COMPLETE. PT DENIES PAIN, STATES SHE FEELS "PUFFY". +1 PITTING EDEMA BILAT UPPER AND LOWER EXT. TRACE EDEMA IN THE FACE. PT ABD MOD DISTENDED, NOT TENDER. PT WAS IN RECLINER FOR BREAKFAST, BACK IN BED. IVF STOPPED AT THIS TIME. CALL LIGHT IN REACH.
[2024-08-14] MEDS ORDERED: SODIUM BICARBONATE 650 MG TAB PO SCH (09:00)
[2024-08-14] MEDS ORDERED: FUROSEMIDE 20 MG TAB PO SCH (09:00)
--- NOTE | 2024-08-14 09:27 | NUR ---
PATIENT WAS UP TO CHAIR FOR BREAKFAST AND NOW BACK TO BED, SBA FWW. VITALS AND I&O'S DONE AND CHARTED. CALL LIGHT IN REACH. BED ALARM ON. NO FURTHER NEEDS AT THIS TIME.
[2024-08-14] MEDS ORDERED: ALBUMIN HUMAN 25% 100 ML BTL IV ONE (12:45)
[2024-08-14] MEDS ORDERED: FUROSEMIDE 40 MG/4 ML VIAL IV ONE ×2 (13:00→20:00)
--- NOTE | 2024-08-14 13:50 | NUR ---
PATIENT IN BED WATCHING TV AT THIS TIME. VITALS AND I&O'S DONE AND CHARTED. RN AWARE OF HIGH BLOOD PRESSURE. CALL LIGHT IN REACH. NO FURTHER NEEDS AT THIS TIME.
--- NOTE | 2024-08-14 13:53 | NUR ---
HYDRALAZINE RECEIVED FOR SBP GREATER THAN 160.
--- NOTE | 2024-08-14 16:01 | NUR ---
OLD DRESSINGS REMOVED FROM BLE WOUNDS. WOUNDS CLEANSED WITH VASE AND PATTED DRY. A&D OINTMENT APPLIED TO ADAPTIC AND PLACED OVER RIGHT LEG WOUND AND LEFT MEDIAL LEG WOUND. SILVADENE CREAM APPLIED TO ADAPTIC AND PLACED OVER LEFT [place] WOUND. DRESSINGS SECURED WITH KERLIX GAUZE ROLL. LLE DRESSING REINFORCED WITH ELASTIC BANDAGE. PT TOLERATED WELL. LEFT [place] WOUND ALSO CLEANSED WITH DEBRISOFT ELLLY.
[2024-08-14 16:29] LABS: ANION GAP 15.5 (7-21); BUN/CREATININE RATIO 31.36 (6.0-28.6); CALCIUM 8.2 mg/dL (8.5-10.1); CREATININE, SERUM 2.2 mg/dL (0.55-1.02); POTASSIUM 5.5 mmol/L (3.5-5.1)
--- NOTE | 2024-08-14 17:45 | NUR ---
CALLED IF HE WAS WANTING MORE LASIX ORDERED DUE TO ONLY HAVING ONE DOSE TODAY. MD MENTIONED HE DIDNT WANT TO OVERDIURESE THE PT. AFTER DISCUSSING BP AND URINE OUTPUT. GAVE VERBAL ORDER FOR 40MG LASIX TO BE GIVEN AT 1999 THIS EVENING.
--- NOTE | 2024-08-14 18:36 | NUR ---
PATIENT IN BED RESTING AT THIS TIME. VITALS AND I&O'S DONE AND CHARTED. CALL LIGHT IN REACH. BED ALARM ON. NO FURTHER NEEDS AT THIS TIME.
--- NOTE | 2024-08-14 20:20 | NUR ---
Patient in bed watching tv, no acute distress. Patient reports 5/10 bilat leg pain. Admin oxycodone 5mg po at this time. Patient verbalized her understanding regarding planned surgery tomorrow and npo status as of midnight tonight. Patient's vital signs stable. Bilat lower legs have dressings noted-CDI. generalized swelling noted to patient; pt reports she feels "tight". Encourage patient to have legs elevated. Vital signs are stable.
--- NOTE | 2024-08-14 23:58 | NUR ---
Patient called requesting pain medication. Admin oxycodone 5mg po for reported 5/10 LLE pain.
[2024-08-15] VITALS (9 sets, daily range): BP systolic 143–165; BP diastolic 48–90
--- NOTE | 2024-08-15 | NUR ---
SBA TO BEDSIDE COMMODE AND BACK TO BED. PATIENT REQUESTED PAIN MEDS. RN NOTIFIED. BED ALARM ON FOR SAFETY.
--- NOTE | 2024-08-15 02:16 | NUR ---
INTO CHECK ON PATIENT. PATIENT SLEEPING. REGULAR RATE AND RESPIRATIONS NOTED.
--- NOTE | 2024-08-15 03:00 | NUR ---
BED ALARM GOING OFF, NURSE TO ROOM. PATIENT UP TO BSC. NO COMPLICATIONS. PATIENT BACK TO BED.
--- NOTE | 2024-08-15 05:00 | NUR ---
REPORT RECEIVED FROM JV MANCUSO AND CARE ASSUMED.
[2024-08-15 05:43] LABS: EOSINOPHILS 2.6 % (0-6); HEMATOCRIT 23.8 % (35.0-50.0); HEMOGLOBIN 7.9 g/dL (12.0-18.0); LYMPHOCYTES 23.4 % (24-44); MCH 29.4 (27-36); MCV 89.2 fl (81-99); MONOCYTES 7.2 % (0-12); NEUTROPHILS 64.8 % (39-80); PLATELET COUNT 551 K/uL (140-440); RBC 2.67 M/ul (4.3-5.7); RDW 16.3 (10.5-15.0)
--- NOTE | 2024-08-15 05:52 | NUR ---
LAB IN TO DRAW, UP TO BSC WITH HEALTH BENEFITS SPECIALIST, DAILY WEIGHT AND VS DONE. BACK TO BED.
[2024-08-15 05:58] LABS: ALBUMIN 1.5 g/dL (3.4-5.0); ALBUMIN/GLOBULIN RATIO 0.35 (1.1-2.4); ANION GAP 12.3 (7-21); BILIRUBIN, TOTAL 0.2 mg/dL (0.2-1.0); BUN/CREATININE RATIO 30.9 (6.0-28.6); CALCIUM 8.2 mg/dL (8.5-10.1); CREATININE, SERUM 2.2 mg/dL (0.55-1.02); MAGNESIUM 1.9 mg/dL (1.8-2.4); POTASSIUM 5.3 mmol/L (3.5-5.1); PROTEIN, TOTAL 5.8 g/dL (6.4-8.2)
[2024-08-15] MEDS ORDERED: CEFAZOLIN SODIUM 2 GM/20 ML SYR IV SCH (07:00)
--- NOTE | 2024-08-15 07:27 | NUR ---
RECIEVED SHIFT REPORT FROM BARTOLOME SIEGEL. PT RESTING IN BED, EYES CLOSED, BREATHING EVEN AND UNLABORED. CALL LIGHT IN REACH.
[2024-08-15] MEDS ORDERED: FUROSEMIDE 100 MG/10 ML VIAL IV ONE ×2 (08:00→18:00)
--- NOTE | 2024-08-15 08:51 | NUR ---
PATIENT IN CHAIR AT THIS TIME. BIOMEDICAL ENGINEERING TECHNOLOGIST CHARTED BLOODSUGAR AND HOURLY ROUNDS. BIOMEDICAL ENGINEERING TECHNOLOGIST ASSISTED PATIENT FROM BED TO THE CHAIR. CALL LIGHT WITHIN REACH, NO FURTHER NEEDS AT THIS TIME.
--- NOTE | 2024-08-15 09:57 | NUR ---
PATIENT IN BED AT THIS TIME. STEAMER OPERATOR CHARTED I&O'S, RN CHARTED VITALS. CALL LIGHT WITHIN REACH, NO FURTHER NEEDS AT THIS TIME.
--- NOTE | 2024-08-15 10:32 | NUR ---
PT NOT AVAILABLE FOR VISIT. PROVIDED PRAYER.
--- NOTE | 2024-08-15 10:35 | NUR ---
Spoke with Emily. She is tired, wanting to sleep. Warm blanket given. Skin graft was cancelled as legs were edematous. Pt is walking well and was discharged from OT and PT.Cont. to have issues with her K.
--- NOTE | 2024-08-15 10:43 | NUR ---
VISITED DURING SPIRITUAL CARE ROUNDS. PT APPEARED TO BE SLEEPING. DID NOT DISTURB. PROVIDED PRAYER.
--- NOTE | 2024-08-15 13:20 | NUR ---
PT RESTING IN BED WITH EYES CLOSED, CALL LIGHT IN REACH.
--- NOTE | 2024-08-15 13:39 | NUR ---
PATIENT IN BED AT THIS TIME. HOME IMPROVEMENT INSTALLER CHARTED VITALS AND I&O'S. CALL LIGHT WITHIN REAACH, NO FURTHER NEEDS AT THIS TIME.
--- NOTE | 2024-08-15 16:21 | NUR ---
OLD DRESSINGS REMOVED FROM BLE WOUNDS. WOUNDS CLEANSED WITH VASE AND PATTED DRY. A&D OINTMENT APPLIED TO ADAPTIC AND PLACED OVER RIGHT LEG WOUND AND LEFT MEDIAL LEG WOUND. SILVADENE CREAM APPLIED TO ADAPTIC AND PLACED OVER LEFT [place] WOUND. DRESSINGS SECURED WITH KERLIX GAUZE ROLL. LLE DRESSING REINFORCED WITH ELASTIC BANDAGE. PT TOLERATED WELL. SLOUGH IN LEFT [place] WOUND CONTINUES TO DECREASED ALONG WITH WOUND SIZE.
--- NOTE | 2024-08-15 18:19 | NUR ---
PATIENT IN BED AT THIS TIME. LIFE SCIENCES INSTRUCTOR CHARTED VITALS AND I&O'S. CALL LIGHT WITHIN REACH, NO FURTHER NEEDS AT THIS TIME.
--- NOTE | 2024-08-15 19:40 | NUR ---
REPORT RECEIVED FROM DAY SHIFT RN. PT SITTING IN BED ALERT AND ORIENTED. DENIES NEEDS. WHITE BOARD UPDATED. CALL LIGHT IN REACH.
--- NOTE | 2024-08-15 20:31 | NUR ---
EVENING ASSESSMENT COMPLETE. SCHEDULED MEDS ADMIN PER EMAR. PT REPORTS BLE PAIN 08/22. PRN FOR PAIN ADMIN. BLE ELEVATED ON PILLOWS. DRESSINGS CDI. EDEMA NOTED IN THIGHS, ARMS, BLE. PT DENIES SOB. LUNGS CLEAR THROUGHOUT. PT DENIES QUESTIONS OR CONCERNS. CALL LIGHT IN REACH.
--- NOTE | 2024-08-15 21:28 | NUR ---
Completed pt assessment. PRN Tylenol given by primary RN. No other needs identified. Pt ambulating independently in hallway. Call light in reach of bed
--- NOTE | 2024-08-15 22:28 | NUR ---
Assisted pt to bathroom SBA. No other needs identified, call light in reach
--- NOTE | 2024-08-15 23:30 | NUR ---
PT RESTING IN BED WITH EYES CLOSED. RESPIRATIONS EVEN. CALL LIGHT IN REACH. BED ALARM FOR SAFETY.
[2024-08-16] VITALS (10 sets, daily range): BP systolic 133–165; BP diastolic 61–82
--- NOTE | 2024-08-16 00:08 | NUR ---
SBA PATIENT GOT UP TO BEDSIDE COMMODE. VOIDED APPROXIMATELY 100ML LIGHT YELLOW URINE. PATIENT IS BACK IN BED. NO OTHER NEEDS AT THIS TIME. BED ALARM ON FOR SAFETY.
--- NOTE | 2024-08-16 01:44 | NUR ---
PT LYING ON LEFT SIDE RESTING WITH EYES CLOSED. RESPIRATIONS EVEN. CALL LIGHT IN REACH. BED ALARM IN PLACE.
--- NOTE | 2024-08-16 02:57 | NUR ---
PT UP TO BR AND BACK TO BED WITH FARM PLANNER. REPORTS BLE PAIN 09/22. PRN FOR PAIN ADMIN PER EMAR. BLE ELEVATED ON PILLOWS. DRESSINGS CDI. ASSESSMENT UNCHANGED. NO FURTHER NEEDS. BED ALARM IN PLACE. CALL LIGHT IN REACH.
--- NOTE | 2024-08-16 04:02 | NUR ---
PT RESTING IN BED WITH EYES CLOSED. RESPIRATIONS EVEN. CALL LIGHT IN REACH.
--- NOTE | 2024-08-16 04:26 | NUR ---
CALL LIGHT ANSWERED. PT UP TO BR WITH FWW AND SBA TO VOID AND HAVE BM. GAIT STEADY. DAILY WEIGHT OBTAINED. BACK TO BED, KEILA WELL. VS AND I&O OBTAINED. ASSISTED TO REPOSITION. NO FURTHER NEEDS. CALL LIGHT IN REACH. BED ALARM FOR SAFETY.
[2024-08-16 05:36] LABS: BASOPHILS 0.9 % (0-2); EOSINOPHILS 2.8 % (0-6); HEMOGLOBIN 8.2 g/dL (12.0-18.0); LYMPHOCYTES 21.5 % (24-44); MCH 29.5 (27-36); MCHC 32.6 g/dl (30-36); MCV 90.4 fl (81-99); MONOCYTES 7.2 % (0-12); NEUTROPHILS 67.6 % (39-80); PLATELET COUNT 502 K/uL (140-440); RBC 2.77 M/ul (4.3-5.7); RDW 16.9 (10.5-15.0)
[2024-08-16 05:59] LABS: ALBUMIN 1.6 g/dL (3.4-5.0); ALBUMIN/GLOBULIN RATIO 0.35 (1.1-2.4); ALKALINE PHOSPHATASE 165 U/L (46-116); ALT (SGPT) 21 U/L (14-59); ANION GAP 12.5 (7-21); AST (SGOT) 24 U/L (15-37); BILIRUBIN, TOTAL <0.1 mg/dL (0.2-1.0); BUN/CREATININE RATIO 31.73 (6.0-28.6); CALCIUM 8.1 mg/dL (8.5-10.1); CARBON DIOXIDE 24 mmol/L (21-32); CHLORIDE 108 mmol/L (98-107); GLOMERULAR FILTRATION RATE,EST 24 mL/min (>60); MAGNESIUM 1.9 mg/dL (1.8-2.4); POTASSIUM 5.5 mmol/L (3.5-5.1); PROTEIN, TOTAL 6.2 g/dL (6.4-8.2); TSH, 3RD GENERATION 8.578 uIU/mL (0.358-3.740); UREA NITROGEN 73 mg/dL (7-18)
--- NOTE | 2024-08-16 07:44 | NUR ---
Patient awake in bed watching tv, no distress, respirations even and non labored. Patient denies needs at this time. Personal supplies and call light within reach.
[2024-08-16] MEDS ORDERED: FUROSEMIDE 100 MG/10 ML VIAL IV ONE (08:15)
[2024-08-16] MEDS ORDERED: SODIUM ZIRCONIUM CYCLOSILICATE 10 GM PACK PO ONE (08:15)
--- NOTE | 2024-08-16 09:07 | NUR ---
PATIENT IN BED AT THIS TIME. MAINTENANCE DEPARTMENT TECHNICIAN CHARTED HOURY ROUNDS. CALL LIGHT WITHIN REACH, NO FURTHER NEEDS AT THIS TIME.
--- NOTE | 2024-08-16 09:51 | NUR ---
Oxycodone 5mg po admin at this time for bilat leg pain.
--- NOTE | 2024-08-16 10:06 | NUR ---
PATIENT IN BED AT THIS TIME. LENS GAUGER CHARTED VITALS AND I&O'S. CALL LIGHT WITHIN REAACH, NO FURTHER NEEDS AT THIS TIME.
--- NOTE | 2024-08-16 10:30 | NUR ---
VISITED DURING SPIRITUAL CARE ROUNDS. PT IN OVERALL GOOD SPIRITS, TALKED OF [place] FAMILIES, PLANS AND GOALS. POLITICAL GEOGRAPHER PROVIDED SUPPORTIVE PRESENCE, HOSPITALITY, PRAYER, FACILITATED INTERACTION WITH THERPAY ANIMAL. PT EXPRESSED GRATITUDE.
--- NOTE | 2024-08-16 10:45 | NUR ---
Pt resting in bed, denies needs.
--- NOTE | 2024-08-16 12:44 | NUR ---
Patient resting in bed, eyes closed, respirations even and non labored. Patient has no acute distress. Call light within reach of patient.
--- NOTE | 2024-08-16 13:46 | NUR ---
PATIENT IN CHAIR AT THIS TIME. DIRECTOR RISK CHARTED VITALS AND I&O'S. CALL LIGHT WITHIN REACH, NO FURTHER NEEDS AT THIS TIME.
--- NOTE | 2024-08-16 14:20 | NUR ---
Patient awake, alert and oriented x3, no acute distress. Patient's legs are elevated at this time. Patient requesting pain medication. Admin oxycodon 5mg po at this time for 4/10 leg pain.
--- NOTE | 2024-08-16 15:41 | NUR ---
Dressings to legs replaced per provider order. Patient tolerated well.
--- NOTE | 2024-08-16 19:01 | NUR ---
PATIENT CALLED FOR ASSISTANCE TO THE BATHROOM, PATIENT BACK IN BED, CALL LIGHT IN REACH, DENIES FURTHER NEEDS.
--- NOTE | 2024-08-16 19:45 | NUR ---
RECEIVED REPORT FROM ALICIA RN. PT RESTING IN BED, NO NEEDS AT THIS TIME.
--- NOTE | 2024-08-16 20:15 | NUR ---
PT RESTING IN BED. ASSISTED TO BR SBA. VSS. REPORTS BLE PAIN, PRN OXYCODONE ADMINISTERED. LSC. HRR W/ MURMUR. BTA. LBM TODAY. VOIDS WNL. BLE 2+ EDEMA. BLE DRSGS CDI. BASELINE N/T X4 UNCHANGED. SL KELLIE WNL. CALL LIGHT WITHIN REACH.
--- NOTE | 2024-08-16 22:00 | NUR ---
PT ASLEEP, APPEARS COMFORTABLE.
--- NOTE | 2024-08-16 23:30 | NUR ---
SBA PATIENT TO THE BATHROOM AND BACK TO BED. PATIENT HAD SOILED PULL UPS AND REPLACED WITH FRESH ONE. PUDDING AND CHEESE STICKS PROVIDED PER PATIENT.
[2024-08-17] VITALS (8 sets, daily range): BP systolic 113–168; BP diastolic 58–97
--- NOTE | 2024-08-17 01:10 | NUR ---
PT SLEEPING SOUNDLY ON LEFT SIDE-APPEARS COMFORTABLE.
--- NOTE | 2024-08-17 02:55 | NUR ---
PT CALLED FOR BR, RADHA ESPARZA ASSISTED.
--- NOTE | 2024-08-17 04:11 | NUR ---
PT SLEEPING SOUNDLY, APPEARS COMFORTABLE.
[2024-08-17 05:46] LABS: BASOPHILS 1.6 % (0-2); EOSINOPHILS 2.7 % (0-6); HEMATOCRIT 23.5 % (35.0-50.0); HEMOGLOBIN 7.9 g/dL (12.0-18.0); LYMPHOCYTES 29.3 % (24-44); MCH 29.9 (27-36); MCHC 33.7 g/dl (30-36); MCV 88.8 fl (81-99); MONOCYTES 5.1 % (0-12); NEUTROPHILS 61.3 % (39-80); PLATELET COUNT 351 K/uL (140-440); RBC 2.64 M/ul (4.3-5.7); RDW 16.4 (10.5-15.0)
[2024-08-17 05:57] LABS: ANION GAP 13.4 (7-21); BUN/CREATININE RATIO 29.95 (6.0-28.6); CALCIUM 8.2 mg/dL (8.5-10.1); CREATININE, SERUM 2.37 mg/dL (0.55-1.02); MAGNESIUM 1.9 mg/dL (1.8-2.4); POTASSIUM 5.4 mmol/L (3.5-5.1)
--- NOTE | 2024-08-17 06:18 | NUR ---
PT SLEEPING SOUNDLY ON LEFT SIDE. APPEARS COMFORTABLE.
[2024-08-17] MEDS ORDERED: metOLazone 2.5 MG TAB PO ONE (08:00)
[2024-08-17] MEDS ORDERED: FUROSEMIDE 100 MG/10 ML VIAL IV ONE (08:00)
[2024-08-17] MEDS ORDERED: carvediloL 3.125 MG TAB PO SCH (09:00)
--- NOTE | 2024-08-17 09:00 | NUR ---
Board has been updated and call light has been placed within reach. No request from patient at this time. Patient had 247 ml before breakfeast that has been documented on fluid restriction log
--- NOTE | 2024-08-17 09:35 | NUR ---
MORNING MEDICATIONS GIVEN.
--- NOTE | 2024-08-17 10:26 | NUR ---
Patient in bed resting, alert and oriented x3. Patient sitting on edge of bed eating popcorn out of large bag. Patient educated regarding elevating her legs as much as possible and eating a low sodium diet. Legs have continued moderated pitting edema. Bilat leg dressings are CDI. Patient encouraged to call if she has needs.
--- NOTE | 2024-08-17 10:27 | NUR ---
PT NOT AVAILABLE FOR VISIT. PROVIDED PRAYER.
--- NOTE | 2024-08-17 13:00 | NUR ---
Pt denies needs. Weight increased again today. She states she will decrease her salt and salty snack intake, which friends have brought in. She states she is very thankful for the care she has received.
--- NOTE | 2024-08-17 13:29 | NUR ---
Patient sitting up in chair eating lunch, no distress. Patient denies pain at this time. Legs elevated. Patient's dressings CDI to legs. Encouraged patient to call if she has needs. Personal supplies and call light within reach.
--- NOTE | 2024-08-17 14:53 | NUR ---
Patient in bed resting, no distress. Patient reports 4/10 leg pain. Admin oxycodone 5mg po at this time. Patient encouraged to call if she has needs. Personal supplies and call light within reach.
--- NOTE | 2024-08-17 14:55 | NUR ---
VISITED DURING SPIRITUAL CARE ROUNDS. PT IN OVERALL GOOD SPIRITS, NO IMMEDIATE NEEDS. EXCEPTIONAL CHILDREN TEACHER ASSISTANT PROVIDED RITUAL, PRAYER. PT EXPRESSED GRATITUDE.
--- NOTE | 2024-08-17 19:07 | NUR ---
Patient in bed resting, a/o x3m no acute distress. Patient reporting 5/10 bilat leg pain. Admin oxycodone 5mg po at this time. Also admin prn hydralazine at this time for elevated bp-see v/s charting.
--- NOTE | 2024-08-17 19:30 | NUR ---
RECEIVED REPORT FROM BARTOLOME NAVARRO. PT SLEEPING SOUNDLY.
--- NOTE | 2024-08-17 19:50 | NUR ---
CALL LIGHT ANSWERED. PT NEEDED TO USE BATHROOM. HORTICULTURAL WORKER SBA TO BATHROOM. PT VOIDED AND ASSISTED BACK TO BED. PT STATES NO FURTHER NEEDS AT THIS TIME. OUTPUT MEASURED AND CALL LIGHT WITHIN REACH. BED ALARM ON.
--- NOTE | 2024-08-17 20:59 | NUR ---
ARMY RANGER OBTAINED VITALS AND I&O. PT STATES NO NEEDS AT THIS TIME. CALL LIGHT WITHIN REACH AND BED ALARM ON.
--- NOTE | 2024-08-17 21:00 | NUR ---
PT RESTING QUIETLY. AWAKENS EASILY FOR ASSSESSMENT AND HS MEDS. VSS. REPORTS BLE PAIN 2/10 AFTER EARLIER PRN OXYCODONE. LSC. HRR W/ MURMUR. 1+ GENERALIZED EDEMA, 2+ EDEMA TO BLE. N/T X 4 UNCHANGED FROM BASELINE. BTA. LBM TODAY. VOIDS WNL. PT IS SBA TO BR. SL TO KELLIE WNL. BG WNL, NO SLIDING SCALE INSULIN REQUIRED. DRSGS TO BLE CDI. 1999 FLUID RESTRICTION CONTINUES. CALL LIGHT WITHIN REACH.
--- NOTE | 2024-08-17 23:06 | NUR ---
SLEEPING SOUNDLY. APPEARS COMFORTABLE.
[2024-08-18] VITALS (10 sets, daily range): BP systolic 145–193; BP diastolic 61–83
--- NOTE | 2024-08-18 00:09 | NUR ---
CALL LIGHT ANSWERED. PT NEEDED TO USE BATHROOM. TOBACCO GROWER SBA TO BATHROOM. PT VOIDED AND ASSISTED BACK TO BED. OUTPUT MEASURED. PT STATES NO FURTHER NEEDS AT THIS TIME. CALL LIGHT WITHIN REACH AND BED ALARM ON.
--- NOTE | 2024-08-18 01:30 | NUR ---
PT SLEEPING SOUNDLY. APPEARS COMFORTABLE.
--- NOTE | 2024-08-18 03:38 | NUR ---
PT AWAKE, FRESH ICE WATER PROVIDED.
--- NOTE | 2024-08-18 05:08 | NUR ---
ELECTRONIC CONSOLE DISPLAY OPERATOR OBTIANED VITALS AND I&O. PT GIVEN BROTH AND CRACKER UPON REQUEST. PT STATES NO FURTHER NEEDS AT THIS TIME. CALL LIGHT WITHIN REACH AND BED ALARM ON.
--- NOTE | 2024-08-18 05:30 | NUR ---
PT CALLED FOR ASSIST TO BR. RAJPUT WNL. BLE DRSGS CDI. PT REQUESTED CHICKEN BROTH-PT REMINDED TO AVAOI SALT WHILE TRYING TO DIURESE. DAILY WEIGHT OBTAINED-73.5KG STANDING SCALE.
[2024-08-18 06:02] LABS: BASOPHILS 1.4 % (0-2); EOSINOPHILS 1.8 % (0-6); HEMATOCRIT 24.7 % (35.0-50.0); HEMOGLOBIN 8.1 g/dL (12.0-18.0); LYMPHOCYTES 17.8 % (24-44); MCH 29.6 (27-36); MCHC 32.7 g/dl (30-36); MCV 90.4 fl (81-99); MONOCYTES 6.8 % (0-12); NEUTROPHILS 72.2 % (39-80); PLATELET COUNT 490 K/uL (140-440); RBC 2.73 M/ul (4.3-5.7); RDW 16.8 (10.5-15.0)
[2024-08-18 06:13] LABS: ANION GAP 13.4 (7-21); BUN/CREATININE RATIO 30.86 (6.0-28.6); CALCIUM 8.3 mg/dL (8.5-10.1); CREATININE, SERUM 2.43 mg/dL (0.55-1.02); MAGNESIUM 1.8 mg/dL (1.8-2.4); POTASSIUM 5.4 mmol/L (3.5-5.1)
--- NOTE | 2024-08-18 07:05 | NUR ---
REPORT RECEIVED FROM BARTOLOME FIGUEROA. PATIENT APPEARS TO BE ASLEEP IN BED. EVEN AND UNLABORED RESPIRATIONS NOTED. CALL LIGHT WITHIN REACH.
--- NOTE | 2024-08-18 08:25 | NUR ---
120MG DOSE OF LASIX VERIFIED WITH DR PHUNG. ELMORE STATED TO PROCEED WITH DOSE.
[2024-08-18] MEDS ORDERED: metOLazone 5 MG TAB PO SCH (09:00)
[2024-08-18] MEDS ORDERED: carvediloL 6.25 MG TAB PO SCH (09:00)
[2024-08-18] MEDS ORDERED: FUROSEMIDE 100 MG/10 ML VIAL IV SCH (09:00)
--- NOTE | 2024-08-18 09:54 | NUR ---
PATIENT WITH EYES CLOSED AND RESPIRATIONS ARE EVEN AND UNLABORED. CALL LIGHT AND PERSONAL BELONGINGS WITHIN REACH.
--- NOTE | 2024-08-18 10:10 | NUR ---
UR CONCURRENT REVIEW: MCG-PER [facility]CG REVIEW DOES NOT GL DAY 2 FOR HYPERKALEMIA AND NEED FOR SKIN GRAFT VIARANCE COMPLETE Prevacus INPT 07/31/24 ORDER MATCHES REG UPDATED CLINICALS FAXED TO [facility] FOR AUTH DISCHARGE TO HOME WHEN STABLE 08/21/2024
--- NOTE | 2024-08-18 10:30 | NUR ---
PATIENT IS ALERT AND ORIENTED X4. PATIENT IS SBA/IND. DRESSINGS TO BLE CHANGED AND WOUND CARE COMPLETE. LLE WITH SEROUS DRAINAGE NOTED TO SMALL AREAS. RLE WITH NO DRAINAGE NOTED ON PREVIOUS DRESSING. PATIENT HAD 1+ EDEMA TO BILATERAL UPPER THIGHS, 2+ EDEMA TO BUE, AND GENERALIZED EDEMA TO FACE. PATIENT HAS A MURMUR HEARD UPON AUSCULTATION. RIGHT PEDAL PULSE IS STRONG. LEFT PEDAL PULSE COVERED WITH DRESSING. BILATERAL RADIAL PULSES ARE STRONG. CAP REFILL TO UPPER AND LOWER EXTREMETIES ARE <3 SECONDS. IV FLUSHED WITH 10ML OF NS AND IS SALINE LOCKED. PATIENT IS NOW ON 2G SODIUM RESTRICTION, 1500ML FLUID RESTRICTION, AND 60G CARB DIET. BOWEL TONES ACTIVE IN ALL 4 QUADRANTS. PATIENT WITH NO COMPLAINTS OF PAIN AT THIS TIME. PATIENT ON ROOM AIR. LUNG SOUNDS ARE CLEAR TO UPPER LOBES WITH CRACKLES IN BASES BILATERALLY. PATIENT STATES NO FURTHER NEEDS AT THIS TIME. CALL LIGHT AND PERSONAL BELONGINGS WITHIN REACH.
--- NOTE | 2024-08-18 11:10 | NUR ---
Patient's diet has changed to 60 gm Cons Carb, 2 gm sodium, 1500 ml fluid restriction due to edema in legs. Patient still has a good appetite, eating 90-100% of meals. Has been calling the kitchen less for extra food. Patient is awaiting a skin graft for wound on lower leg. The Ensure Max has been D/C'd due to a renal diet being ordered a few days ago and K+ lab has been elevated. No nutrition intervention other than to continue to encourage patient to avoid salty snacks. Patient at low to moderate nutrition risk due having a good appetite but has leg wounds from [place] that are still healing. RD will f/u in 7 days unless notifed or patient's condition worsens.
--- NOTE | 2024-08-18 11:15 | NUR ---
Pt walking in room from the bathroom. Denies needs. COnt. to diures per 8:30 meeting.
--- NOTE | 2024-08-18 11:16 | NUR ---
Patient reached breakfast fluid restricion. 160ml remaining until lunch.
--- NOTE | 2024-08-18 11:44 | NUR ---
PATIENT RESTING IN BED LAYING DOWN. PATIENT DENIES ANY NEEDS AT THIS TIME. CALL LIGHT AND PERSONAL BELONGINGS WITHIN REACH.
--- NOTE | 2024-08-18 12:24 | NUR ---
PATIENT SITTINFG UP IN BED EATING LUNCH. PATIENT DENIES ANY OTHER NEEDS AT THIS TIME. CALL LIGHT AND PERSONAL BELONGINGS WITHIN REACH.
--- NOTE | 2024-08-18 13:27 | NUR ---
ACADEMIC INTERVENTIONIST AT BEDSIDE GETTING VITALS. PATIENT DENIES ANY OTHER NEEDS AT THIS TIME. CALL LIGHT AND PERSONAL BELONGINGS WITHIN REACH.
--- NOTE | 2024-08-18 15:13 | NUR ---
PATIENT RESTING IN BED WATCHING TV. PATIENT DENIES ANY NEEDS AT THIS TIME. CALL LIGHT AND PERSONAL BELONGINGS WITHIN REACH.
--- NOTE | 2024-08-18 16:13 | NUR ---
PATIENT IS LYING IN BED WITH HOB ELEVATED. PATIENT IS WATCHING TV AND REQUESTING A CUP OF COFFEE. THIS RN DELEGATED TASK TO RADHA GALLAGHER AND TO UPDATE THE FLUID RESTRICTION SHEET. ORTHODONTIST ASSISTANT EXPRESSED UNDERSTANDING. PATIENT STATED NO FURTHER NEEDS AT THIS TIME. CALL LIGHT AND PERSONAL BELONGINGS ARE WITHIN REACH.
--- NOTE | 2024-08-18 17:20 | NUR ---
FOCUS ASSESSMENT COMPLETED. PATIENT UPPER LOBES CLEAR BILATERALLY WITH CRACKLES IN BASES BILATERALLY. PATIENT BP WAS ELEVATED TO 193/83 ON MONITOR AND 200/96 MANUALLY. PRN HYDRALAZINE ADMINISTERED PER EMAR. WILL RECHECK WITHIN 1 HOUR. PATIENT ALSO REPORTS PAIN 5/10, PRN OXY 5MG ADMINISTERED. PATIENT IV FLUSHED WITH 10ML NS, DRESSING CLEAN, DRY, AND INTACT. PATIENT DENIES ANY OTHER NEEDS AT THIS TIME. CALL LIGHT AND PERSONAL BELONGINGS WITHIN REACH.
--- NOTE | 2024-08-18 18:00 | NUR ---
PATIENT BP DOWN TO 156/79 FROM 200/96 AFTER PRN HYDRALAZINE ADMINISTRATION. WARM BLANKET PROVIDED. PATIENT DENIES ANY OTHER NEEDS AT THIS TIME. CALL LIGHT AND PERSONAL BELONGINGS WITHIN REACH.
--- NOTE | 2024-08-18 19:51 | NUR ---
RECEIVED REPORT FROM BARTOLOME BYNUM. PT ASLEEP IN BED. CALL LIGHT WITHIN REACH.
--- NOTE | 2024-08-18 21:14 | NUR ---
VIBRATOR EQUIPMENT TESTER OBTAINED VITALS AND I&O. PT GIVEN TEA UPON REQUEST. PT STATES NO FURTHER NEEDS AT THIS TIME. CALL LIGHT WITHIN REACH.
--- NOTE | 2024-08-18 21:30 | NUR ---
PT RESTING QUIETLY. AWAKENS EASILY. CALLS APPROP. REPORTS BLE PAIN 08/22, MEDICATED W/ PRN OXYCODONE. LSC. HRR W/ MURMUR. BTA, LBM 08/17. VOIDS WNL. BLE DRSGS IN PLACE, LLE W/ STELLA WRAP AND RLE W/ GUAZE-BOTH CDI. 1+ BLE EDEMA, GENERALIZED EDEMA 1+. KELLIE SL WNL. BASELINE N/T X 4. AMBULATES TO BR W/ SBA. VOIDS WNL. HS BG WNL-NO SLIDING SCALE REQUIRED. FLUID RESTRICTION OF 1500CC. CALL LIGHT WITHIN REACH.
--- NOTE | 2024-08-18 23:40 | NUR ---
PT SLEEPING SOUNDLY, APPEARS COMFORTABLE.
[2024-08-19] VITALS (9 sets, daily range): BP systolic 136–177; BP diastolic 73–90
--- NOTE | 2024-08-19 01:12 | NUR ---
PT REQUESTING MORE FLUIDS-PT REMINDED OF RESTRICTION AND HAS ALREADY MET LIMIT. PT UNDERSTANDING AT THIS TIME.
--- NOTE | 2024-08-19 02:16 | NUR ---
PT AWAKE, SLEEPING BETWEEN CARE. DENIES NEEDS.
--- NOTE | 2024-08-19 04:52 | NUR ---
PT ASLEEP, APPEARS COMFORTABLE.
--- NOTE | 2024-08-19 05:38 | NUR ---
PRODUCTION RECORDER OBTAINED VITALS AND I&O. PT STATES NO NEEDS AT THIS TIME. CALL LIGHT WITHIN REACH.
[2024-08-19 05:55] LABS: BASOPHILS 1.3 % (0-2); EOSINOPHILS 2.9 % (0-6); HEMATOCRIT 23.9 % (35.0-50.0); HEMOGLOBIN 7.9 g/dL (12.0-18.0); LYMPHOCYTES 22.5 % (24-44); MCH 29.5 (27-36); MCHC 33.1 g/dl (30-36); MCV 89.2 fl (81-99); MONOCYTES 8.6 % (0-12); NEUTROPHILS 64.7 % (39-80); PLATELET COUNT 452 K/uL (140-440); RBC 2.68 M/ul (4.3-5.7); RDW 16.4 (10.5-15.0)
[2024-08-19 06:07] LABS: ANION GAP 11.1 (7-21); BUN/CREATININE RATIO 30.52 (6.0-28.6); CALCIUM 8.2 mg/dL (8.5-10.1); CREATININE, SERUM 2.49 mg/dL (0.55-1.02); MAGNESIUM 1.8 mg/dL (1.8-2.4); POTASSIUM 5.1 mmol/L (3.5-5.1)
--- NOTE | 2024-08-19 06:16 | NUR ---
PT AWAKE, SLEEPING BETWEEN CARE. BLE DRSGS CDI. DENIES NEEDS.
--- NOTE | 2024-08-19 07:12 | NUR ---
REPORT RECEIVED FROM BARTOLOME FIGUEROA. PATIENT UP TO BATHROOM. RIB KNITTER IN ROOM TO ASSIST PATIENT BACK TO BED. CALL LIGHT AND PERSONAL BELONGINGS WITHIN REACH.
--- NOTE | 2024-08-19 08:35 | NUR ---
PATIENT RESTING IN BED. PATIENT MEDICATED PER EMAR. PATIENT DENIES ANY OTHER NEEDS AT THIS TIME. CALL LIGHT AND PERSONAL BELONGINGS WITHIN REACH.
--- NOTE | 2024-08-19 09:22 | NUR ---
PATIENT SITTING UP IN BED WATCHING TV. PATIENT DENIES ANY NEEDS AT THIS TIME. CALL LIGHT AND PERSONAL BELONGINGS WITHIN REACH.
--- NOTE | 2024-08-19 10:30 | NUR ---
WOUND CARE COMPLETE BY THIS RN. DRESSING CHANGED PER THE ORDERS. OLD DRESSING WITH SEROUS DRAINAGE ON THE DRESSING NOTED. PATIENT TOLERATED WELL WITH NO COMPLAINTS OF PAIN AT THIS TIME. PATIENT STATED NO FURTHER NEEDS AT THIS TIME. CALL LIGHT AND PERSONAL BELONGINGS ARE WITHIN REACH.
--- NOTE | 2024-08-19 10:30 | NUR ---
PATIENT ASSESSMENT COMPLETED. PATIENT IS ALERT AND ORIENTED X4. PATIENT IS SBA/IND. DRESSING CHANGED BY BARTOLOME TUCKER AND ARE CLEAN, DRY, AND INTACT. PATIENT HAS 1+ EDEMA TO BLE, 2+ TO BUE, AND GENERALIZED EDEMA TO FACE. PATIENT HAS A MURMUR HEARD UPON AUSCULTATION. RADIAL AND PEDAL PULSES ARE STRONG BILATERALLY. CAP REFILL TO UPPER AND LOWER EXTREMETIES ARE <3 SECONDS BILATERALLY. IV FLUSHED WITH 10ML OF NS AND IS SALINE LOCKED WITH DRESSING INTACT. PATIENT IS ON 2G SODIUM AND 1500ML FLUID RESTRICTION AND 60G CARB DIET. BOWEL TONES ARE ACTIVE IN ALL 4 QUADRANTS. PATIENT WITH NO COMPLAINTS OF PAIN AT THIS TIME. PATIENT ON ROOM AIR AND LUNGS ARE CLEAR THROUGHOUT. PATIENT ALSO REPORTS CHRONIC NUMBNESS AND TINGLING TO UPPER AND LOWER EXTREMETIES. SCATTERED SCARS NOTED. PATIENT DENIES ANY FURTHER NEEDS AT THIS TIME. CALL LIGHT AND PERSONAL BELONGINGS WITHIN REACH.
--- NOTE | 2024-08-19 11:45 | NUR ---
PATIENT RESTING IN BED WATCHING TV. DENIES ANY OTHER NEEDS AT THIS TIME. CALL LIGHT AND PERSONAL BELONGINGS WITHIN REACH.
--- NOTE | 2024-08-19 12:27 | NUR ---
PATIENT SITTING UP IN BED EATING LUNCH. PATIENT DENIES ANY NEEDS AT THIS TIME. CALL LIGHT AND PERSONAL BELONGINGS WITHIN REACH.
--- NOTE | 2024-08-19 13:03 | NUR ---
CASE MANAGMENT AT BEDSIDE. CALL LIGHT AND PERSONAL BELONGINGS WITHIN REACH.
--- NOTE | 2024-08-19 13:07 | NUR ---
DC PLAN REMAINS UNCHANGED. NO CM NEEDS AT THIS TIME.
--- NOTE | 2024-08-19 13:37 | NUR ---
PATIENT IS BACK IN BED AT THIS TIME, SHE WAS UP IN HER CHAIR FOR LUNCH. MAILHOUSE OPERATOR BACK CHARTED I&O'S FOR BREAKFAST AND LUNCH. (I THOUGHT I DID THEM) AND MISSED MORNING VITALS. BUT CHARTED LUNCH VITALS AND TIDYED UP PATIENTS ROOM. CALL LIGHT WITHIN REACH, NOTHING ELSE NEEDED AT THIS TIME.
--- NOTE | 2024-08-19 14:00 | NUR ---
PATIENT LAYING IN BED WATCHING TV. FINISHING MACHINE TENDER REPORTED PATIENT BLOOD PRESSURE OF 162/90. THIS RN TOOK BLOOD PRESSURE 30MINS LATER AND BLOOD PRESSURE WAS 159/77 WITH A MAP OF 99. DR MURDOCK NOTIFIED DUE TO ORDER BEING PRN HYDRALAZINE FOR SYSTOLIC >160. STATED TO NOT ADMINISTER PRN HYDRALAZINE. NO NEW ORDERS AT THIS TIME.
--- NOTE | 2024-08-19 14:41 | NUR ---
FOCUS ASSESSMENT COMPLETED. PATIENT ON ROOM AIR AT 96%. LEFT UPPER AND LOWER LOBES WITH CRACKLES. RIGHT UPPER LOBE CLEAR WITH CRACKLES IN THE BASES. PATIENT GIVEN INCENTIVE SPIROMETER AND EDUCATED ON USE. PATIENT DEMONSTRATED USE. PATIENT ALSO STATES "IT FEELS OFF AND HARDER TO TAKE A BREATH ON THAT SIDE" WHILE POINTING TO LEFT SIDE OF LUNGS. PATIENT DENIES ANY FURTHER NEEDS AT THIS TIME. CALL LIGHT AND PERSONAL BELONGINGS WITHIN REACH.
--- NOTE | 2024-08-19 14:54 | NUR ---
PATIENT WITH NO COMPLAINTS OF PAIN AT THIS TIME. IV FLUSHED WITH 10ML OF NS, DRESSING INTACT. CALL LIGHT AND PERSONAL BELONGINGS WITHIN REACH.
--- NOTE | 2024-08-19 15:24 | NUR ---
PT NOT AVAILABLE FOR VISIT. PROVIDED PRAYER.
--- NOTE | 2024-08-19 15:35 | NUR ---
PATIENT MEDICATED PER EMAR. PATIENT DENIES ANY FURTHER NEEDS AT THIS TIME. CALL LIGHT AND PERSONAL BELONGINGS WITHIN REACH.
--- NOTE | 2024-08-19 16:14 | NUR ---
PATIENT RESTING IN BED WITH EYES CLOSED. EVEN AND UNLABORED RESPIRATIONS NOTED. CALL LIGHT AND PERSONAL BELONGINGS WITHIN REACH.
--- NOTE | 2024-08-19 17:05 | NUR ---
THIS RN AND BARTOLOME TUCKER REASSESSED EDEMA AT THIS TIME. PATIENT WITH INCREASED EDEMA NOTED TO RIGHT BREAST, LEFT SIDE OF BACK, LEFT HAND, BILATERAL ARMS, ABDOMEN, RIGHT FOOT. PATIENT RIGHT LOWER LUNG DIMINISHED IN COMPARISON TO OUR ASSESSMENT 2 HOURS AGO. PATIENT NOT IN RESPIRATORY DISTRESS AT THIS TIME. PATIENT IS UP IN THE CHAIR WITH LEGS ELEVATED. POPCORN REMOVED FROM PATIENT ROOM AT THIS TIME AND PATIENT STATED TO JUST THROW IT AWAY. DR MURDOCK NOTIFIED. STATED HE WILL ASSESS HER AT A LATER TIME DUE TO HER NOT CURRENTLY BEING IN RESPIRATORY DISTRESS. NO NEW ORDERS AT THIS TIME. PATIENT WITH CALL LIGHT AND PERSONAL BELONGINGS WITHIN REACH.
--- NOTE | 2024-08-19 18:09 | NUR ---
PATIENT WAS IN HER CHAIR FOR DINNER, HAD TO USE THE RESTROOM, THE RENTAL COUNTER CLERK ASSISTED BACK TO BED. RENTAL COUNTER CLERK GOT PATIENT FRESH WATER (STILL WITH IN HER RISTRICTIONS), WARM BLANKET, AND WANTED A PAIN PILL. RENTAL COUNTER CLERK NOTIFIED RN, CHARTED VITALS AND I&O'S, CALL LIGHT WITH IN REACH AND NOTHING ELSE NEEDED AT THIS TIME.
--- NOTE | 2024-08-19 18:41 | NUR ---
PRN OXYCODONE ADMINISTERED PER THE EMAR FOR 4/10 PAIN ON THE LEFT SIDE OF THE CHEST THAT IS DEEP AND WITH BREATHING. PATIENT STATES "IT IS NOT TOO BAD". NOTIFIED. CAME TO BEDSIDE TO ASSESS PATIENT CHEST PAIN AND EDEMA. MD STATRED HE WILL BE PUTTING IN ORDERS. PATIENT STATED NO FURTHER NEEDS AT THIS TIME. CALL LIGHT AND PERSONAL BELONGINGS ARE WITHIN REACH.
--- NOTE | 2024-08-19 19:32 | NUR ---
RECEIVED REPORT FROM DAY SHIFT RN. PATIENT IS RESTING IN BED WITH EYES CLOSED, RR 16. CALL LIGHT IN REACH.
[2024-08-19] MEDS ORDERED: HEParin SOD (PORCINE) 5,000 UNIT/ML SDV SUB-Q SCH (21:00)
--- NOTE | 2024-08-19 21:35 | NUR ---
PATIENTS ASSEMSENT COMPLETED. PATIENT HAS DRESSING ON BILAT LOW EXT AND ARE C/D/I. PATIENT DENIES ANY PAIN. PATIENTS PM MEDS GIVEN PER ORDER. PATIENTS IV FLUSHED AND SL PER ORDER. PATIENT PROVIDED DIET APPROPRIATE SNACK. PATIENT DENIES ANY FURTHER NEEDS. CALL LIGHT IN REACH. BS WNL AND NO SS REQUIRED PER ORDER.
--- NOTE | 2024-08-19 21:59 | NUR ---
PATIENT IS RESTING IN BED WATCHING TV. PATIENT DENIES ANY NEEDS. CALL LIGHT IN REACH.
--- NOTE | 2024-08-19 22:45 | NUR ---
PATIENT REQUESTED MORE WATER. DISCUSSED FR WITH PATIENT AND THAT SHE ONLY HAS 300ML OF WATER UNTIL 6AM. PATIENT VERABLAIZED UNDERSTANDING AND WAS GIVEN 100ML OF WATER. PATIENT DENIES ANY FURTHER NEEDS. CALL LIGHT IN REACH.
[2024-08-20] VITALS (11 sets, daily range): BP systolic 120–174; BP diastolic 64–78
--- NOTE | 2024-08-20 00:07 | NUR ---
PATIENT IS RESTING IN BED ON BACK WITH EYES CLOSED, RR 15. CALL LIGHT IN REACH.
--- NOTE | 2024-08-20 02:32 | NUR ---
PATIENT IS RESTING IN BED ON RIGHT SIDE. PATIENT UPDATE ON PLAN OF CARE AND THE NEED FOR A UA. PATIENT VERBALIZED UNDERSTANDING. PATIENT DENIES ANY PAIN. PATIENT DENIES ANY NEEDS. CALL LIGHT IN REACH.
--- NOTE | 2024-08-20 04:00 | NUR ---
PATIENT IS RESTING IN BED WITH EYES CLOSED, RR 15. CALL LIGHT IN REACH.
--- NOTE | 2024-08-20 04:52 | NUR ---
PATIENT CALLED AND REPORTED NAUSEA, PRN NAUSEA MEDICATION GIVEN PER ORDER. PATIENTS DW OBTAINED AND RECORDED. PATIENTS VITALS TAKEN AND RECORDED. PATIENT REPORTS 4/10 PAIN IN HER RLE, PRN PAIN MEDICATION GIVEN PER ORDER. PATIENT DENIES ANY FURTHER NEEDS. CALL LIGHT IN REACH.
[2024-08-20 05:06] LABS: BASOPHILS 1.8 % (0-2); EOSINOPHILS 2.8 % (0-6); HEMATOCRIT 23.8 % (35.0-50.0); HEMOGLOBIN 7.8 g/dL (12.0-18.0); LYMPHOCYTES 28.5 % (24-44); MCH 29.4 (27-36); MCHC 32.9 g/dl (30-36); MCV 89.3 fl (81-99); MONOCYTES 8.4 % (0-12); NEUTROPHILS 58.5 % (39-80); PLATELET COUNT 452 K/uL (140-440); RBC 2.67 M/ul (4.3-5.7); RDW 16.5 (10.5-15.0)
[2024-08-20 05:17] LABS: BUN/CREATININE RATIO 28.4 (6.0-28.6); CALCIUM 8.1 mg/dL (8.5-10.1); CREATININE, SERUM 2.57 mg/dL (0.55-1.02); MAGNESIUM 1.7 mg/dL (1.8-2.4)
--- NOTE | 2024-08-20 05:30 | NUR ---
PATIENTS BP REEVALUATED AND IS WNL. NO PRN INTERVENTION NEEDED. PATIENT REPORTS IMPROVEMENT IN PAIN. PATIENT DENIES ANY NAUSEA. PATIENT DENIES ANY FURTHER NEEDS. CALL LIGHT IN REACH.
--- NOTE | 2024-08-20 06:24 | NUR ---
PATIENT UP TO BR AND ABLE TO VOID. URINE SAMPLE SENT PER ORDER. PATIENT IS NOW IN RELCINER RESTING. PATIENT DENIES ANY FURHTER NEEDS. CALL LIGHT IN REACH.
[2024-08-20 06:25] LABS: BILIRUBIN, URINE NEGATIVE (negative); BLOOD/HGB, URINE TRACE-L (Negative); KETONE, URINE NEGATIVE (Negative); LEUK ESTERASE, URINE NEGATIVE (negative); NITRITE, URINE NEGATIVE (negative)
[2024-08-20 06:35] LABS: EPITHELIAL CELLS, URINE SQUAMOUS 1+ /lpf (0-1+)
[2024-08-20 06:36] LABS: BACTERIA, URINE NONE SEEN /hpf (negative); CASTS, URINE NONE SEEN \\lpf; COLLECTION TYPE, URINE CLEAN CATCH; CRYSTALS, URINE NONE SEEN (0-1+); REFLEX CULTURE, URINE No (No)
--- NOTE | 2024-08-20 07:22 | NUR ---
REPORT RECEIVED FROM BARTOLOME MONROY. PATIENT LAYING IN BED. PATIENT DENIES ANY NEEDS AT THIS TIME. CALL LIGHT AND PERSONAL BELONGINGS WITHIN REACH.
[2024-08-20 07:39] LABS: CREATININE, RANDOM URINE 46.33 mg/dL (NOT ESTABLISHED)
--- NOTE | 2024-08-20 08:57 | NUR ---
PATIENT RESTING IN BED WATCHING TV. PATIENT MEDICATED PER EMAR. PATIENT DENIES ANY FURTHER NEEDS AT THIS TIME. CALL LIGHT AND PERSONAL BELONGINGS WITHIN REACH. VS STABLE.
--- NOTE | 2024-08-20 10:00 | NUR ---
PATIENT ASSESSMENT COMPLETED. PATIENT IS ALERT AND ORIENTED X4. PATIENT IS SBA/IND. DRESSING CHANGED PER MD ORDER. PATIENT TOLERATED WELL WITH NO COMPLAINTS OF PAIN. LEFT DRESSING NOTED TO HAVE SEROUS DRAINAGE UPON REMOVAL. WOUND CARE COMPLETE. NEW DRESSING IN PLACE. RIGHT LOWER EXTREMETY DRESSING CHANGED, SMALL SCABS NOTED WITH NO DRAINAGE. WOUND CARE COMPLETE. PATIENT HAS 2+ EDEMA TO BLE AND LUE. FACE, ABDOMEN, AND RIGHT BREAST WITH GENERALIZED EDEMA. 1+ EDEMA TO RUE. RADIAL AND PEDAL PULSES ARE STRONG BILATERALLY. PATIENT HAS A MURMUR HEARD UPON AUSCULTATION. CAP REFILL <3 SECONDS BILATRALLY. IV FLUSHED WITH 10ML OF NS AND IS SALINE LOCKED WITH DRESSING INTACT. PATIENT IS ON 2G SODIUM AND 1500 ML FLUID RESTRICTION WITH 60G CARB DIET. BOWEL TONES ARE HYPERACTIVE IN ALL 4 QUADRANTS. PATIENT WITH NO COMPLAINTS OF PAIN AT THIS TIME. PATIENT ON ROOM AIR WITH CRACKLES IN BILATERAL BASES AND CLEAR IN THE UPPER LOBES. PATIENT ALSO REPORTS CHRONIC NUMBNESS AND TINGLING IN BILATERAL UPPER AND LOWER EXTREMETIES. SCATTERED SCARS NOTED. PATIENT DENIES ANY FURTHER NEEDS AT THIS TIME. CALL LIGHT AND PERSONAL BELONGINGS WITHIN REACH.
--- NOTE | 2024-08-20 11:17 | NUR ---
PATIENT LAYING IN BED WATCHING TV. PATIENT DENIES ANY NEEDS AT THIS TIME. CALL LIGHT AND PERSONAL BELONGINGS WITHIN REACH.
--- NOTE | 2024-08-20 11:20 | NUR ---
BED ALARM PLACED ON THE BED. PATIENT EDUCATED TO CALL WHEN NEEDING TO GET UP. PATIENT EXPRESSED UNDERSTANDING. PATIENT STATED NO FURTHER NEEDS AT THIS TIME. CALL LIGHT AND PERSONAL BELONGINGS ARE WITHIN REACH.
--- NOTE | 2024-08-20 12:08 | NUR ---
PATIENT UP TO CHAIR FOR LUNCH. BEDSIDE TABLE CLEANED OFF FOR PATIENT. 100ML OF FRESH ICE WATER PROVIDED. PATIENT DENIES ANY FURTHER NEEDS AT THIS TIME. CALL LIGHT AND PERSONAL BELONGINGS WITHIN REACH.
--- NOTE | 2024-08-20 13:18 | NUR ---
PATIENT SITTING UP IN CHAIR. VITALS AND INTAKE AND OUTPUT CHARTED. LINEN CHANGED. PATIENT WITH NO COMPLAINTS OF PAIN AT THIS TIME. PATIENT WILLING TO GO FOR WALK AROUND 1430 TODAY. PATIENT DENIES ANY OTHER NEEDS AT THIS TIME. CALL LIGHT AND PERSONAL BELONGINGS WITHIN REACH. VS STABLE.
--- NOTE | 2024-08-20 14:10 | NUR ---
PATIENT SITTING UP IN CHAIR WATCHING TV. PATIENT WILLING TO GO FOR A WALK. PATIENT WALKED WITH THIS RN AROUND LOOP BY BACK NURSES STATION. PATIENT TOLERATED WALK WELL, BUT DID REPORT SOME DIZZINESS ONCE WE WERE ABOUT BACK TO ROOM. PATIENT ALSO REPORTS "EVERYTHING FEELS FUNNY" WITH EXTRA FLUID AND WALKING. PATIENT BACK IN BED AND DENIES ANY PAIN AFTER WALK. PATIENT UPPER LUNGS ARE CLEAR WITH CRACKLES IN BASES. EDEMA WITH NO CHANGE FROM THIS MORNING. WARM BLANKET PROVIDED. PATIENT DENIES ANY FURTHER NEEDS AT THIS TIME. CALL LIGHT AND PERSONAL BELONGINGS WITHIN REACH.
--- NOTE | 2024-08-20 15:14 | NUR ---
PATIENT SITTING UP IN BED EATING SALAD. PATIENT DENIES ANY FURTHER NEEDS AT THIS TIME. CALL LIGHT AND PERSONAL BELONGINGS WITHIN REACH.
--- NOTE | 2024-08-20 16:00 | NUR ---
PATIENT MEDICATED PER EMAR. PATIENT DENIES ANY FURTHER NEEDS AT THIS TIME. CALL LIGHT AND PERSONAL BELONGINGS WITHIN REACH.
--- NOTE | 2024-08-20 17:08 | NUR ---
PATIENT RESTING IN BED WAITING FOR DINNER. PATIENT DENIES ANY NEEDS AT THIS TIME. CALL LIGHT AND PERSONAL BELONGINGS WITHIN REACH.
--- NOTE | 2024-08-20 18:06 | NUR ---
PATIENT RESTING IN BED. PRN DOSE OF HYDRALAZINE GIVEN FOR BLOOD PRESSURE OF 171/73 WITH A MAP OF 95. PATIENT UP TO BATHROOM AND BACK IN BED AFTER HAVING A BM. PATIENT DENIES ANY OTHER NEEDS AT THIS TIME. CALL LIGHT AND PERSONAL BELONGINGS WITHIN REACH.
--- NOTE | 2024-08-20 19:31 | NUR ---
RECEIVED REPORT FORM DAY SHIFT RN. PATIENT IS RESTING IN BED. PATIENT DENIES ANY NEEDS AT THIS TIME. CALL LIGHT IN REACH.
--- NOTE | 2024-08-20 21:17 | NUR ---
PATIENTS VITALS TAKEN AND RECORDED. INTAKE AND OUTPUT RECORDED. PATIENTS PM MEDS GIVEN PER ORDER. PATIENTS BS CHECKED AND NO SS NEEDED. PATIENT DENIES ANY PAIN. PATIENTS DRESSING ON BILAT LOW EXTS ARE C/D/I. PATIENTS IV FLUSHED AND SL PER ORDER. PATIENT DENIES ANY FURTHER NEEDS. CALL LIGHT IN REACH. HOT TEA PROVIDED.
--- NOTE | 2024-08-20 22:16 | NUR ---
PATIENT UP TO BR IND. PATIENT HAD BM AND ABLE TO VOID. PATIENT IS BACK IN BED RESTING. PATIENT REPORTS 3/10 PAIN IN HER RLE, PRN PAIN MEDICATION GIVEN PER ORDER. PATIENT DENIES ANY FURTHER NEEDS. CALL LIGHT IN REACH.
[2024-08-21] VITALS (9 sets, daily range): BP systolic 139–180; BP diastolic 68–85
--- NOTE | 2024-08-21 00:19 | NUR ---
PATIENT IS RESTING IN BED WITH EYES CLOSED, RR 16. CALL LIGHT IN REACH.
--- NOTE | 2024-08-21 01:58 | NUR ---
PATIENT UP TO BR. PATIENT ABLE TO VOID AND HAVE BM. PATIENT IS BACK IN BED RESTING. PATIENT REQUESTED TEA. PATIENT EDUCATED THAT SHE HAS 220ML OF LIQUID LEFT UNTIL 0600. PATIENT VERBALIZES UNDERSTANDING. PATIENT PROVIDED TEA PER REQUEST. PATIENT IS AAOX4. PATIENT DENIES AND PAIN AT THIS TIME. PATIENT DENIES ANY FURTHER NEEDS. CALL LIGHT IN REACH.
[2024-08-21 05:07] LABS: EOSINOPHILS 3.1 % (0-6); HEMATOCRIT 24.2 % (35.0-50.0); HEMOGLOBIN 7.9 g/dL (12.0-18.0); LYMPHOCYTES 26.2 % (24-44); MCH 29.4 (27-36); MCHC 32.8 g/dl (30-36); MCV 89.5 fl (81-99); NEUTROPHILS 59.7 % (39-80); PLATELET COUNT 412 K/uL (140-440); RDW 16.3 (10.5-15.0)
[2024-08-21 05:16] LABS: ANION GAP 13.2 (7-21); BUN/CREATININE RATIO 26.81 (6.0-28.6); CREATININE, SERUM 2.76 mg/dL (0.55-1.02); MAGNESIUM 1.7 mg/dL (1.8-2.4); POTASSIUM 5.2 mmol/L (3.5-5.1)
--- NOTE | 2024-08-21 05:36 | NUR ---
PATIENTS VITALS TAKEN AND RECORDED. INTAKE AND OUTPUT RECORDED. PATIENTS DW OBTAINED AND RECORDED. PATIENT DENIES ANY PAIN OR NAUSEA. PATIENTS IV FLUSEHD AND SL PER ORDER. PATIENT DENIES ANY FURTHER NEEDS AT THIS TIME. CALL LIGHT IN REACH.
--- NOTE | 2024-08-21 07:10 | NUR ---
REPORT RECEIVED FROM BARTOLOME MONROY. PATIENT RESTING IN BED WITH EYES CLOSED. EVEN AND UNLABORED RESPIRATIONS NOTED. CALL LIGHT AND PERSONAL BELONGINGS WITHIN REACH.
[2024-08-21] MEDS ORDERED: MAGNESIUM CHLORIDE 64 MG TABCR PO ONE (08:30)
--- NOTE | 2024-08-21 08:40 | NUR ---
PATIENT ASSESSMENT COMPLETED. PATIENT IS ALERT AND ORIENTED X4. PATIENT UP TO CHAIR FOR BREAKFAST. PATIENT MEDICATED PER EMAR. PATIENT BLOOD PRESSURE AT THIS TIME IS 180/85. PRN DOSE OF HYDRALZINE NOT GIVEN DUE TO PATIENT GETTING LASIX, COREG, AND ZAROXLYN AT THIS TIME. PATIENT IS SBA IN ROOM. PATIENT HAS HEART MURMUR HEARD UPON AUSCULTATION. RADIAL AND PEDAL PULSES ARE STRONG BILATERALLY. PATIENT REPORT NUMBNESS AND TINGLING IN BILATERAL UPPER AND LOWER EXTREMETIES THAT IS CHRONIC. PATIENT HAS 1+ EDEMA TO BUE AND BLE. PATIENT HAS GENERALIZED EDEMA TO THE FACE, RIGHT BREAST, AND ABDOMEN THAT HAS IMPROVED FROM YESTERDAY. PATIENT CAP REFILL IS <3 SECONDS. PATIENT IS ON ROOM AIR AND LUNG SOUNDS ARE CLEAR IN THE BILATERAL UPPER LOBES. PATIENT LEFT MID LOBE, AND BILATERAL BASES ARE WITH CRACKLES. PATIENT HAS ACTIVE BOWEL TONES IN ALL 4 QUADRANTS. LAST BM WAS EARLY THIS MORNING WITH PREVIOUS SHIFT. PATIENT DENIES ANY URINARY SYMPTOMS AT THIS TIME. PATIENT IS ON 2G SODIUM AND 1500ML FLUID RESTRICTION WITH 60G CARB DIET. PATIENT WITH NO COMPLAINTS OF PAIN AT THIS TIME. CALL LIGHT AND PERSONAL BELONGINGS WITHIN REACH. IV FLUSHED WITH 10ML OF NS, DRESSING INTACT.
--- NOTE | 2024-08-21 09:22 | NUR ---
PATIENT SITTING UP IN CHAIR WITH EYES CLOSED. EVEN AND UNLABORED RESPIRATIONS NOTED. CALL LIGHT AND PERSONAL BELONGINGS WITHIN REACH.
--- NOTE | 2024-08-21 09:24 | NUR ---
PATIENT ASSISTED BACK TO BED. PATIENT HAD LOOSE BM AND 200 ML LIGHT YELLOW URINE. HAT EMPTIED AND TOILET FLUSHED. PATIENT STATED NO FURTHER NEEDS AT THIS TIME. PATIENT COVERED WITH A PATIENT. CALL LIGHT AND PERSONAL BELONGINGS ARE WITHIN REACH.
--- NOTE | 2024-08-21 10:20 | NUR ---
PATIENT LAYING ON HER LEFT SIDE IN BED WITH HER EYES CLOSED. EVEN AND UNLABORED RESPIRATIONS NOTED. CALL LIGHT AND PERSONAL BELONGINGS WITHIN REACH.
--- NOTE | 2024-08-21 11:29 | NUR ---
PATIENT RESTING IN BED WITH HER EYES CLOSED. EVEN AND UNLABORED RESPIRATIONS NOTED. CALL LIGHT AND PERSONAL BELONGINGS WITHIN REACH.
--- NOTE | 2024-08-21 12:13 | NUR ---
PATIENT AMBULATED TO BATHROOM, THEN UP TO CHAIR FOR LUNCH. PATIENT DENIES ANY NEEDS AT THIS TIME. CALL LIGHT AND PERSONAL BELONGINGS WITHIN REACH.
--- NOTE | 2024-08-21 13:04 | NUR ---
PATIENT BACK IN BED RESTING AND WATCHING TV. PATIENT DENIES ANY FURTHER NEEDS AT THIS TIME. CALL LIGHT AND PERSONAL BELONGINGS WITHIN REACH.
--- NOTE | 2024-08-21 14:44 | NUR ---
BED BATH COMPLETE AND DOCUMENTED IN THE CHART. NEW LINENS PLACED ON THE PATIENT BED AFTER SHE USED THE RESTROOM. PATIENT TOLERATED WELL. THIS RN WORKED ON BRUSHING PATIENTS HAIR. PATIENT AND RN TAKING A BREAK AT THIS TIME. PATIENT STATED NO FURTHER NEEDS AT THIS TIME. CALL LIGHT AND PERSONAL BELONGINGS ARE WITHIN REACH.
--- NOTE | 2024-08-21 15:50 | NUR ---
DRESSING CHANGED PER MD ORDER. PATIENT TOLERATED WELL WITH NO COMPLAINTS OF PAIN. LEFT DRESSING NOTED TO HAVE SMALL AMOUNT OF SEROUS DRAINAGE UPON REMOVAL. NEW DRESSING IN PLACE. RIGHT DRESSING CHANGED WITH NO DRAINAGE, BUT NOTED TO HAVE SOME SCABS. NEW DRESSING IN PLACE. PATIENT WITH NO FURTHER NEEDS AT THIS TIME. CALL LIGHT AND PERSONAL BELONGINGS WITHIN REACH.
--- NOTE | 2024-08-21 16:30 | NUR ---
PATIENT FRIEND BROUGHT IN 2 LARGE PACKS OF M&M'S. EDUCATED PATIENT ON IMPORTANCE OF STICKING TO HER DIET WHILE IN HOSPITAL. PATIENT AGREED AND THIS RN REMOVED CANDY FROM ROOM. CANDY PLACED IN ZIPLOCK BAG WITH PATIENT STICKER.
--- NOTE | 2024-08-21 17:12 | NUR ---
PATIENT RESTING IN BED WATCHING TV. DENIES WANTING TO GO FOR A WALK AT THIS TIME. PATIENT REPORT SOME RELIEF FROM PAIN AFTER PAIN MEDICATION ADMINISTRATION. PATIENT DENIES ANY FURTHER NEEDS AT THIS TIME. CALL LIGHT AND PERSONAL BELONGINGS WITHIN REACH.
--- NOTE | 2024-08-21 18:03 | NUR ---
PATIENT ASSISTED TO THE BATHROOM AND BACK TO BED WITH SBA. PATIENT STEADY ON HER FEET AND TOLERATED WELL. PATIENT VOID 350 ML OF LIGHT YELLOW URINE. INTAKE AND OUTPUT VALUES TAKEN AND DOCUMENTED IN THE CHART. DINNER TRAY REMOVED. PATIENT STATED NO FURTHER NEEDS AT THIS TIME. CALL LIGHT AND PERSONAL BELONGINGS ARE WITHIN REACH.
--- NOTE | 2024-08-21 19:26 | NUR ---
RECEIVED REPORT FROM DAY SHIFT RN. PATIENT IS RESTING IN BED. TEA PROVIDED. PATIENT DENIES ANY FURTHER NEEDS. CALL LIGHT IN REACH.
--- NOTE | 2024-08-21 22:03 | NUR ---
VITALS TAKEN AND RECORDED. INTAKE AND OUTPUT RECORDED. PATIENTS PM MEDS GIVEN PER ORDER. PATIENT RATES PAIN AT A 5/10 IN BILAT LOW EXT, PRN PAIN MEDICATION GIVEN PER ORDER. PATIENTS IV FLUSHED AND SL PER ORDER. PATIENT REQUESTED BROTH. PATIENT UPDATED ON FR AND HOW MANY MLS SHE HAD LEFT. PATIENT VERBALIZED UNDERSTANDING. PATIENT PROVIDED WITH BROTH. PATIENT DENIES ANY FURTEHR NEEDS. CALL [facility] IN REACH.
[2024-08-22] VITALS (12 sets, daily range): BP systolic 140–178; BP diastolic 61–85
--- NOTE | 2024-08-22 00:02 | NUR ---
PATIENT IS RESTING IN BED WITH EYES CLOSED, RR 16. CALL LIGHT IN REACH. NAD NOTED.
--- NOTE | 2024-08-22 02:09 | NUR ---
PATIENT IS RESTING IN BED WITH EYES CLOSED, RR 16. CALL LIGHT IN REACH.
--- NOTE | 2024-08-22 03:58 | NUR ---
PATIENT IS RESTING IN BED. PATIENT PROVIDED DIET APPROPRIATE SNACK. PATIENT DENIES ANY FURTHER NEEDS. CALL LIGHT IN REACH.
--- NOTE | 2024-08-22 04:39 | NUR ---
PT UTILIZES CALL LIGHT, REQUESTS PRN PAIN MEDCIATION. COAL INSPECTOR TO ROOM. REPORTS PAIN 3/10 TO BLE'S PRN ADMINISTERED. PT DENIES FURTHER NEEDS AT THIS TIME. PRIMARY RN UPDATED. CALL LIGHT IN REACH.
[2024-08-22 05:21] LABS: EOSINOPHILS 3.7 % (0-6); HEMOGLOBIN 7.8 g/dL (12.0-18.0); LYMPHOCYTES 29.2 % (24-44); MCHC 32.5 g/dl (30-36); MCV 89.3 fl (81-99); MONOCYTES 9.1 % (0-12); PLATELET COUNT 374 K/uL (140-440); RBC 2.69 M/ul (4.3-5.7); RDW 16.4 (10.5-15.0)
[2024-08-22 05:33] LABS: ALBUMIN 1.6 g/dL (3.4-5.0); ALBUMIN/GLOBULIN RATIO 0.36 (1.1-2.4); ANION GAP 14.2 (7-21); BILIRUBIN, TOTAL 0.1 mg/dL (0.2-1.0); BUN/CREATININE RATIO 27.01 (6.0-28.6); CALCIUM 7.8 mg/dL (8.5-10.1); CREATININE, SERUM 2.85 mg/dL (0.55-1.02); MAGNESIUM 1.7 mg/dL (1.8-2.4); POTASSIUM 5.2 mmol/L (3.5-5.1)
--- NOTE | 2024-08-22 06:15 | NUR ---
PATIENT UP TO BR AND ABLE TO VOID. PATIENTS DW OBTAINED. PATIENT IS BACK IN BED RESTING. COFFEE PROVIDED. PATIENT DENIES ANY FURTHER NEEDS. CALL LIGHT ION REACH.
--- NOTE | 2024-08-22 07:51 | NUR ---
PT RESTING EYES CLOSED AT TIME OF SHIFT REPORT, LEFT UNDISTURBED. CALL LIGHT AND NEEDED ITEMS AT BEDSIDE
--- NOTE | 2024-08-22 08:15 | NUR ---
Board has been updated and call light has been placed within reach. No request from patient at this time. Water cup has been placed at the sink for nurse
--- NOTE | 2024-08-22 09:21 | NUR ---
PT AWAKENS FOR MORNING MEAL THEN RETURNS TO RESTING EYES CLOSED
--- NOTE | 2024-08-22 10:54 | NUR ---
PT CONTINUES DOZING THIS SHIFT STATES SHE DIDN'T SLEEP WELL LAST NIGHT.
--- NOTE | 2024-08-22 11:40 | NUR ---
PT UP TO THE SHOWER DRESSINGS OFF OF LEGS SHE AGREES TO JUST RINSE THEM WITH WATER. BED LINENS CHANGED AND PERSONAL CARE ITEMS PROVIDED. PT RETURNS TO BED DRESSINGS APPLIED.
--- NOTE | 2024-08-22 12:45 | NUR ---
PT SITTING UP IN BED EATING NOON MEAL DENIES DISCOMFORTS OR NEEDS OF
--- NOTE | 2024-08-22 15:00 | NUR ---
PT RESTING IN BED WATCHING TV DENIES DISCOMFORTS OR NEEDS
[2024-08-22] MEDS ORDERED: MAGNESIUM CHLORIDE 64 MG TABCR PO ONE (16:45)
--- NOTE | 2024-08-22 17:22 | NUR ---
PT UP TO THE CHAIR WITH EVENING MEAL.
--- NOTE | 2024-08-22 18:20 | NUR ---
PT RETURNS TO BED AFTER EVENING MEAL
--- NOTE | 2024-08-22 19:29 | NUR ---
REPORT RECEIVED FROM DAYSNCFT RN. PATIENT RESTING IN BED ON RIGHT SIDE WATCHING TV. DENIES ANY NEEDS, CALL LIGHT IN REACH.
--- NOTE | 2024-08-22 20:01 | NUR ---
PATIENT AMBULATED AROUND HALLWAY X1 LAP. REQUESTED PRN MEDICATION FOR PAIN UPON RETURN. PRN MEDICATION ADMINISTERED. PATIENT WATCHING TV IN BED, DENIES OTHER NEEDS. CALL LIGHT IN REACH.
--- NOTE | 2024-08-22 21:47 | NUR ---
SCHEDULED MEDICATIONS ADMINISTERED. PATIENT AMBULATED WELL TO THE RESTROOM WITHOUT DIFFICULTY. DRESSINGS C/D/I BLE. PATIENT PROVIDED TEA PER REQUEST. IV FLUSHED WNL, SL PER ORDER. DENIES OTHER NEEDS. CALL LIGHT IN REACH.
[2024-08-23] VITALS (11 sets, daily range): BP systolic 135–193; BP diastolic 65–85
--- NOTE | 2024-08-23 00:09 | NUR ---
PATIENT RESTING WITH EYES CLOSED, RESP EVEN AND UNLABORED. CALL LIGHT IN REACH. NO OTHER NEEDS IDENTIFIED.
--- NOTE | 2024-08-23 01:51 | NUR ---
CALL LIGHT ANSWERED, PATIENT PROVIDED SNACK PER REQUEST. DENIES OTHER NEEDS. LAYING ON LEFT SIDE, WATCHING TV. CALL LIGHT IN REACH.
--- NOTE | 2024-08-23 03:32 | NUR ---
PATIENT REPORTS 3/10 PAIN IN HER BILAT EXTERMETIES, PRN PAIN MEDICATION GIVEN PER ORDER. PATIENT PROVIDED SNACK. PATIENT DENIES ANY FURTHER NEEDS. CALL LIGHT IN REACH.
--- NOTE | 2024-08-23 05:04 | NUR ---
VS OBTAINED AND RECORDED, WEIGHT OBTAINED. PATIENT UP TO RESTROOM WITHOUT DIFFICULTY, PRN MEDICATION FOR BLOOD PRESSURE ADMINISTERED PER ORDER. PATIENT DENIES ANY NEEDS. RESTING IN BED, CALL LIGHT IN REACH.
--- NOTE | 2024-08-23 05:42 | NUR ---
CALL LIGHT ANSWERED, PATIENT IN RESTROOM, SHE WANTED TO REPORT THAT SHE HAD A VOID AND BOWEL MOVEMENT AND STATES THAT SHE IS "HAPPY SHE IS GETTING RID OF SO MUCH WATER". AMBULATED BACK TO BED WITHOUT DIFFICULTY, DENIES ANY OTHER NEEDS. CALL LIGHT IN REACH.
--- NOTE | 2024-08-23 05:52 | NUR ---
BP REASSESSMENT. SEE VS DOCUMENTATION. PATIENT DENIES ANY NEEDS, PAIN WNL. CALL LIGHT IN REACH. PATIENT WATCHING TV IN BED.
[2024-08-23 05:56] LABS: BASOPHILS 2.3 % (0-2); EOSINOPHILS 4.1 % (0-6); HEMATOCRIT 24.2 % (35.0-50.0); HEMOGLOBIN 8.1 g/dL (12.0-18.0); LYMPHOCYTES 28.8 % (24-44); MCH 29.7 (27-36); MCHC 33.3 g/dl (30-36); MCV 89.1 fl (81-99); MONOCYTES 8.5 % (0-12); NEUTROPHILS 56.3 % (39-80); PLATELET COUNT 363 K/uL (140-440); RBC 2.72 M/ul (4.3-5.7); RDW 16.3 (10.5-15.0)
[2024-08-23 06:17] LABS: ALBUMIN 1.7 g/dL (3.4-5.0); ALBUMIN/GLOBULIN RATIO 0.37 (1.1-2.4); BILIRUBIN, TOTAL 0.1 mg/dL (0.2-1.0); BUN/CREATININE RATIO 29.47 (6.0-28.6); CALCIUM 8.1 mg/dL (8.5-10.1); CREATININE, SERUM 2.68 mg/dL (0.55-1.02); MAGNESIUM 1.8 mg/dL (1.8-2.4); PROTEIN, TOTAL 6.3 g/dL (6.4-8.2)
--- NOTE | 2024-08-23 07:21 | NUR ---
PT RESTING EYES CLOSED AT TIME OF SHIFT REPORT, LEFT UNDISTURBED. CALL LIGHT IN REACH
--- NOTE | 2024-08-23 08:20 | NUR ---
PT SITTING UP FOR MORNING MEAL, DENIES NEED OF ANYTHINGS
--- NOTE | 2024-08-23 10:09 | NUR ---
PT RESTING EYES CLOSED
--- NOTE | 2024-08-23 11:07 | NUR ---
DR NARANJO IN TO SEE PT LEGS DURING DRESSING CHANGE. PROCEEDURE WELL TOLERATED. ANSWERS ALL QUESTIONS DISCUSSED PLANS GOING FORWARD AND POSSIBLE DC PLAN
--- NOTE | 2024-08-23 12:53 | NUR ---
PT CONTINUES NAPPING DESPITE DR NARANJO AND THIS BLASTING GANG MINER BOTH ENCOURAGING HER TO AMBULATE THE HALLS TODAY. SHE ASSURES THIS BLASTING GANG MINER SHE JUST WANT'S TO SLEEP A LITTLE LONGER AND THEN WILL GET UP AND MOVING
--- NOTE | 2024-08-23 13:26 | NUR ---
NO CURRENT CM NEEDS. STATES DC PLAN REMAINS TO DC WITH [facility].
--- NOTE | 2024-08-23 14:10 | NUR ---
PT UP IN THE ROOM INDEPENENTLY DENIES NEEDS FROM THIS INVESTIGATOR INTERNAL REVENUE. URINE OUTPUTIS UP FLUID INTAKE IS DOWN.
--- NOTE | 2024-08-23 14:11 | NUR ---
SPOKE WITH DR NARANJO ABOUT NEED OF IV SITE. IT IS TIME TO CHANGE AND SHE IS A DIFFICULT START. DOC ANTICIPATES ONLY 1 MORE DAY OF IV LASIX. SITE LOOKS GOOD AND SL FLUSHES WELL. DRESSING INTACT, WILL LEAVE UNTIL TOMORROW THEN ASSESS NEED TO DC OR CHANGE
--- NOTE | 2024-08-23 16:07 | NUR ---
PATIENT GIVEN 5MG OXYCODONE FOR 4/10 BLE PAIN.
--- NOTE | 2024-08-23 17:21 | NUR ---
PT UP IN THE ROOM INDEPENDENTLY EVENING MEAL SEVERVED. PT AGREES PAIN MED WAS EFFECTIVE FOR HER DENIES DISCOMFORTS OR NEEDS OF.
--- NOTE | 2024-08-23 19:30 | NUR ---
REPORT RECEIVED FROM DAYSHIFT RN. PATIENT RESTING IN BED WITH EYES CLOSED, RESP. EVEN AND UNLABORED. NO NEEDS IDENTIFIED, CALL LIGHT IN REACH.
--- NOTE | 2024-08-23 21:25 | NUR ---
ASSESSMENT COMPLETE. SCHEDULED MEDICATIONS ADMINISTERED. BP ELEVATED, DR. NARANJO AWARE. CONTINUE WITH SCHEDULED MEDICATIONS AND REEVALUATE BP IN 1 HOUR. PATIENT DENIES OTHER NEEDS, CALL LIGHT IN REACH.
--- NOTE | 2024-08-23 23:30 | NUR ---
PATIENT RESTING WITH EYES CLOSED. NO NEEDS IDENTIFIED, CALL LIGHT IN REACH.
[2024-08-24] VITALS (11 sets, daily range): BP systolic 129–181; BP diastolic 61–86
--- NOTE | 2024-08-24 00:39 | NUR ---
PATIENT RESTING ON LEFT SIDE WITH EYES CLOSED, RESP EVEN AND UNLABORED. NO NEEDS IDENTIFIED, CALL LIGHT IN REACH.
--- NOTE | 2024-08-24 01:28 | NUR ---
CALL LIGHT ANSWERED. PATIENT REQUESTED PRN PAIN MEDICATION, ADMINISTERED PER ORDER. DENIES OTHER NEEDS. CALL LIGHT IN REACH.
--- NOTE | 2024-08-24 03:43 | NUR ---
PATIENT RESTING WITH EYES CLOSED, RESP. EVEN AND UNLABORED. NO NEEDS IDENTIFIED, CALL LIGHT IN REACH.
[2024-08-24 06:02] LABS: BASOPHILS 2.1 % (0-2); EOSINOPHILS 4.2 % (0-6); HEMATOCRIT 23.9 % (35.0-50.0); LYMPHOCYTES 33.7 % (24-44); MCH 29.7 (27-36); MCHC 33.3 g/dl (30-36); MCV 89.1 fl (81-99); MONOCYTES 9.4 % (0-12); NEUTROPHILS 50.6 % (39-80); PLATELET COUNT 347 K/uL (140-440); RBC 2.68 M/ul (4.3-5.7); RDW 16.2 (10.5-15.0)
[2024-08-24 06:18] LABS: ALBUMIN 1.8 g/dL (3.4-5.0); ALBUMIN/GLOBULIN RATIO 0.4 (1.1-2.4); ANION GAP 12.9 (7-21); BILIRUBIN, TOTAL 0.2 mg/dL (0.2-1.0); BUN/CREATININE RATIO 27.3 (6.0-28.6); CALCIUM 8.2 mg/dL (8.5-10.1); CREATININE, SERUM 2.82 mg/dL (0.55-1.02); MAGNESIUM 1.8 mg/dL (1.8-2.4); POTASSIUM 4.9 mmol/L (3.5-5.1); PROTEIN, TOTAL 6.3 g/dL (6.4-8.2)
--- NOTE | 2024-08-24 07:25 | NUR ---
REPORT RECEIVED FROM BARTOLOME VALENCIA AND BARTOLOME WEST. PATIENT LAYING IN BED WATCHING TV. CALL LIGHT AND PERSONAL BELONGINGS WITHIN REACH.
--- NOTE | 2024-08-24 08:48 | NUR ---
SALES FLOOR MANAGER AND STUDENT NURSE AT BEDSIDE, REPORTING PATIENT BLOOD PRESSURE AT 178/86. PATIENT REPORTING PAIN IN BLE. CALL LIGHT AND PERSONAL BELONGINGS WITHIN REACH.
[2024-08-24] MEDS ORDERED: FUROSEMIDE 100 MG/10 ML VIAL IV SCH (09:00)
--- NOTE | 2024-08-24 09:06 | NUR ---
PATIENT MEDICATED PER EMAR. IV FLUSHED WITH 10ML OF NS, DRESSING INTACT. PATIENT WITH NO FURTHER NEEDS AT THIS TIME. CALL LIGHT AND PERSONAL BELONGINGS WITHIN REACH.
--- NOTE | 2024-08-24 10:18 | NUR ---
VISITED DURING SPIRITUAL CARE ROUNDS. PT IN OVERALL GOOD SPIRITS; NO IMMEDIATE NEEDS. FRONT OF HOUSE MANAGER PROVIDED SUPPORTIVE PRESENCE, HOSPITALITY, PRAYER. PT EXPRESSED GRATITUDE.
--- NOTE | 2024-08-24 11:16 | NUR ---
PT NOT AVAILABLE FOR VISIT. PROVIDED PRAYER.
--- NOTE | 2024-08-24 11:20 | NUR ---
PATIENT IS ALERT AND ORIENTED X4. PATIENT IS INDEPENDENT IN THE ROOM. PATIENT HAS A MURMUR HEARD UPON AUSCULTATION. PATIENT HAS 1+ EDEMA TO BUE, GENERALIZED EDEMA TO FACE AND ABDOMEN, 2+ EDEMA TO LEFT THIGH, AND 1+ EDEMA TO RIGHT THIGH. RADIAL AND PEDAL PULSES ARE STRONG. PATIENT LEFT PEDAL PULSES WAS NOT ASSESSED DUE TO IT BEING COVERED. PATIENT REPORTS CHRONIC NUMBNESS AND TINGLING IN UPPER AND LOWER EXTREMETIES, CAP REFILL <3 SECONDS. PATIENT IS AT 92% ON ROOM AIR. LUNG SOUNDS ARE CLEAR IN BILATERAL UPPER LOBES WITH CRACKLES IN BILATERAL MID LOBES AND WITH DIMINISHED CRACKLES IN BILATERAL BASES. PATIENT IS ON 2G SODIUM AND 1500 ML FLUID RESTRICTION WITH 60G CARB DIET. BOWEL TONES ARE ACTIVE IN ALL 4 QUADRANTS. LAST BM 08/24/24. PATIENT DENIES ANY URINARY SYMPTOMS. PATIENT REPORTS RELIEF FROM PAIN AFTER PAIN MEDICATION ADMINISTRATION. PATIENT HAS SCATTERED SCARS IN BLE. WOUND CARE COMPLETED. PATIENT HAS SMALL AMOUNT OF SEROUS DRAINAGE FROM LEFT WOUND. LEFT WOUND WITH SCABS, BUT WITHOUT DRAINAGE. PATIENT DENIES ANY FURTHER NEEDS AT THIS TIME. CALL LIGHT AND PERSONAL BELONGINGS WITHIN REACH.
--- NOTE | 2024-08-24 11:20 | NUR ---
NO CHANGES TO DC PLAN AT THIS TIME. DC TIME/DAY PENDING WOUND ASSESSMENT AND MANAGEMENT PLAN.
--- NOTE | 2024-08-24 12:35 | NUR ---
PATIENT UP TO BATHROOM, DENIES ANY NEEDS AT THIS TIME. CALL CORD WITHIN REACH.
--- NOTE | 2024-08-24 13:04 | NUR ---
PATIENT LAYING IN BED. REPORTS 3/10 PAIN IN BLE. PAIN MEDICATION GIVEN. PATIENT BLOOD PRESSURE WAS 181/75, RETAKEN AND IS NOW 163/77. PATIENT DENIES ANY FURTHER NEEDS AT THIS TIME. CALL LIGHT AND PERSONAL BELONGINGS WITHIN REACH.
--- NOTE | 2024-08-24 13:09 | NUR ---
PATIENT REPORTING BILATERAL CALF PAIN, BUT STATES "WELL IT'S IN MY THIGHS TOO". DR NARANOJ NOTIFIED AND STATES HE WILL BE BACK TO THE FLOOR AFTER AWHILE AND WILL REASSESS PATIENT AT THAT TIME. WITH NO FURTHER ORDERS AT THIS TIME. ND ALSO NOTIFIED OF RECENT PRESSURE PER LAST NOTE. STATED UP TO RN DICPEDROION TO GIVE PRN HYDRALAZINE. PRN OXYCODONE ADMINISTERED AND TO REASSESS BP IN 1 HOUR. NO NEW ORDERS AT THIS TIME.
--- NOTE | 2024-08-24 13:20 | NUR ---
DR NARANJO AT BEDSIDE.
--- NOTE | 2024-08-24 14:25 | NUR ---
PATIENT RESTING IN BED. PATIENT DENIES WANTING TO GO FOR WALK AT THIS TIME. LET PATIENT KNOW THEY ARE ABLE TO REST AT THIS TIME, BUT WE WILL TRY AGIAN LATER FOR A WALK. PATIENT AGREED AND DENIES ANY FURTHER NEEDS AT THIS TIME. CALL LIGHT AND PERSONAL BELONGINGS WITHIN REACH.
--- NOTE | 2024-08-24 14:54 | NUR ---
PATIENT FOCUS ASSESSMENT COMPLETE. PATIENT IS ON ROOM AIR. LUNG SOUNDS ARE CLEAR IN BILATERAL UPPER LOBES. RLL IS DIMINISHED WITH CRACKLES. LLL IS WITH CRACKLES. PATIENT EDEMA HAS NO CHANGED SINCE THIS MORNING ASSESSMENT. PATIENT DENIES ANY NEEDS AT THIS TIME. CALL LIGHT AND PERSONAL BELONGINGS WITHIN REACH. IV FLUSHED WITH 10ML OF NS, DRESSING INTACT.
--- NOTE | 2024-08-24 15:27 | NUR ---
PATIENT MEDICATED PER EMAR. PATIENT DENIES ANY FURTHER NEEDS AT THIS TIME. CALL LIGHT AND PERSONAL BELONGINGS WITHIN REACH.
--- NOTE | 2024-08-24 16:45 | NUR ---
PATIENT UP FOR WALK WITH THIS RN. PATIENT AMBULATED TO LARGE WINDOWS NEXT TO [facility] AND BACK TO ROOM. BARTOLOME TUCKER AND RADHA MATIAS PROVIDED FRESH LINEN WHILE WE WERE OUT OF ROOM. PATIENT DID WELL ON WALK AND REPORTS SHE FEELS BETTER WITH WALKING AND WOULD LIKE TO GO AGAIN LATER. PATIENT SITTING UP IN CHAIR WITH BARTOLOME TUCKER AND RADHA MATIAS WORKING ON COMBING PATIENT HAIR OUT. HOT TEA PROVIDED FOR PATIENT. PATIENT DENIES ANY FURTHER NEEDS AT THIS TIME.
--- NOTE | 2024-08-24 17:45 | NUR ---
PATIENT UP IN CHAIR EATING DINNER AT THIS TIME. CALL LIGHT AND PERSONAL BELONGINGS WITHIN REACH.
--- NOTE | 2024-08-24 18:36 | NUR ---
PATIENT MEDICATED PER EMAR. WARM BLANKET PROVIDED. PATIENT DENIES ANY FURTHER NEEDS AT THIS TIME. CALL LIGHT AND PERSONAL BELONGINGS WITHIN REACH.
--- NOTE | 2024-08-24 19:30 | NUR ---
REPORT RECIEVED FROM DAYSHIFT RN. PATIENT SITTING ON EDGE OF BED, NO NEEDS IDENTIFIED, CALL LIGHT IN REACH.
--- NOTE | 2024-08-24 20:00 | NUR ---
CALL LIGHT ANSWERED. Pt REQUESTING VEGETABLE BROTH AND CRACKERS AT THIS TIME. UPDATED RN TO PT REQUEST. RN STATES SHE WILL BRING SOMETHING TO THE PT WHEN SHE GOES THERE NEXT. PT UPDATED TO RN RESPONSE.
--- NOTE | 2024-08-24 20:30 | NUR ---
SCHEDULED MEDICATIONS ADMINISTERED PER ORDER. PRN MEDICATION GIVEN FOR PAIN. PATIENT GIVEN SODIUM FREE CHICKEN BROTH, DENIES OTHER NEEDS. CALL LIGHT IN REACH.
[2024-08-24] MEDS ORDERED: DEXTROSE 5% - LACTATED RINGERS 1,000 ML IV SCH (21:15)
--- NOTE | 2024-08-24 21:47 | NUR ---
PATIENT SIGNED CONSENT FORM, WITNESSED BY THIS RN. PATIENT DENIES OTHER NEEDS, CALL LIGHT IN REACH.
--- NOTE | 2024-08-24 23:04 | NUR ---
PATIENT SITTING ON SIDE OF BED EATING, DENIES ANY NEEDS, DENIES PAIN AT THIS TIME. CALL LIGHT IN REACH.
--- NOTE | 2024-08-24 23:30 | NUR ---
PATIENT RESTING IN BED WITH EYES CLOSED, RESP EVEN AND UNLABORED. FOOD AND DRINK REMOVED FROM BEDSIDE TABLE FOR PATIENT TO BE NPO PER ORDER. PATIENT HAS VERBALIZED UNDERSTANDING OF NPO STATUS.
[2024-08-25] VITALS (14 sets, daily range): BP systolic 138–206; BP diastolic 67–88
--- NOTE | 2024-08-25 01:50 | NUR ---
PATIENT SITTING ON EDGE OF BED, REPORTS SHE JUST FINISHED USING THE RESTROOM. DENIES ANY NEEDS AT THIS TIME.
--- NOTE | 2024-08-25 04:06 | NUR ---
PATIENT RESTING WITH EYES CLOSED, RESP EVEN AND UNLABORED. WOKE TO RN ENTERING ROOM. PLANS TO GO BACK TO SLEEP. DENIES NEEDS. CALL LIGHT IN REACH.
--- NOTE | 2024-08-25 05:53 | NUR ---
EXTRUDER OBTAINED VITALS AND OUTPUT. PT STATES NO NEEDS AT THIS TIME. CALL LIGHT WITHIN REACH.
[2024-08-25 06:23] LABS: BASOPHILS 2.7 % (0-2); EOSINOPHILS 4.5 % (0-6); HEMATOCRIT 23.8 % (35.0-50.0); LYMPHOCYTES 32.2 % (24-44); MCH 29.5 (27-36); MCHC 33.4 g/dl (30-36); MCV 88.3 fl (81-99); MONOCYTES 9.5 % (0-12); NEUTROPHILS 51.1 % (39-80); PLATELET COUNT 311 K/uL (140-440); RDW 16.2 (10.5-15.0)
--- NOTE | 2024-08-25 06:30 | NUR ---
STANDING WEIGHT OBTAINED AND RECORDED. NO FURTHER NEEDS. CALL LIGHT IN REACH.
[2024-08-25 06:45] LABS: ALBUMIN 1.8 g/dL (3.4-5.0); ALBUMIN/GLOBULIN RATIO 0.41 (1.1-2.4); ANION GAP 13.1 (7-21); BILIRUBIN, TOTAL 0.1 mg/dL (0.2-1.0); BUN/CREATININE RATIO 28.22 (6.0-28.6); CREATININE, SERUM 2.87 mg/dL (0.55-1.02); MAGNESIUM 1.8 mg/dL (1.8-2.4); POTASSIUM 5.1 mmol/L (3.5-5.1); PROTEIN, TOTAL 6.2 g/dL (6.4-8.2)
--- NOTE | 2024-08-25 06:47 | NUR ---
BP REASSESSED. NO NEED FOR PRN MEDICATION PER ORDER. PATIENT DENIES NEEDS, CALL LIGHT IN REACH.
--- NOTE | 2024-08-25 07:26 | NUR ---
REPORT RECEIVED FROM SITE DAMAGE PREVENTION TECHNICIAN RN ADRIA. PATIENT IS SPEAKING ON THE PHONE. CALL LIGHT AND PERSONAL BELONGINGS ARE WITHIN REACH.
[2024-08-25] MEDS ORDERED: MORPHINE SULFATE 4 MG/ML VIAL IV PRN (08:00)
--- NOTE | 2024-08-25 08:00 | NUR ---
MD NOTIFIED ABOUT PATIENT HAVING PAIN. VERBAL ORDER FOR MORPHINE 2MG EVERY HOUR FOR PAIN PER . MD STATED TO HOLD DRESSING CHANGE SHE IS GOING TO SURGERY THIS AFTERNOON. ORDERS PUT IN BY THIS RN. NO OFURTHER ORDERS AT THIS TIME.
--- NOTE | 2024-08-25 08:13 | NUR ---
PATIENT MEDICATED PER EMAR. PATIENT DENIES FURTHER NEEDS AT THIS TIME. CALL LIGHT AND PERSONAL BELOINGINGS WITHIN REACH. IV FLUSHED WITH 10ML OF NS, DRESSING INTACT.
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
[2024-08-25] MEDS ORDERED: DEXTROSE 5% - LACTATED RINGERS 1,000 ML IV SCH (08:30)
--- NOTE | 2024-08-25 10:32 | NUR ---
VISITED DURING SPIRITUAL CARE ROUNDS. PT IN OVERALL GOOD SPIRITS, RELAYED INFORMATION FROM CARE TEAM, EXPRESSED UNDERSTANDING OF CARE PLAN. CORK MIXER PROVIDED SUPPORTIVE PRESENCE, HOSPITALITY, PRAYER, FACILITATED INTERACTION WITH THERAPY ANIMAL. PT EXPRESSED GRATITUDE.
--- NOTE | 2024-08-25 10:40 | NUR ---
PATIENT LAYING IN BED WATCHING TV. PATIENT DENIED WANTING TO GO FOR A WALK AT THIS TIME, BUT AGREED TO ONE IN AN HOUR BEFORE LUNCH. PATIENT DENIES ANY FURTHER NEEDS AT THIS TIME. CALL LIGHT AND PERSONAL BELONGINGS WITHIN REACH.
--- NOTE | 2024-08-25 10:46 | NUR ---
LYING IN BED. ALERT AND ORIENTED. STATES SHE IS HUNGRY. PATIENT IS CURRENTLY NPO FOR SKIN GRAFT TO BE DONE THIS AFTERNOON. STATES SHE IS STILL PLANNING TO DC HOME WITH SNOW. NO OTHER CM NEEDS AT THIS TIME. DC PENDING GRAFTING TO BE DONE TODAY
--- NOTE | 2024-08-25 11:25 | NUR ---
PATIENT TAKEN FOR WALK BY THIS RN WHILE BARTOLOME TUCKER AND RADHA COLBY CHANGED PATIENT BEDDING. PATIENT AMBULATED OUT TO LOBBY/ANTONY WINDOWS AND BACK TO ROOM. PATIENT SITTING UP IN CHAIR. BARTOLOME TUCKER AND RADHA COLBY DID A CHG WIPE DOWN. PATIENT RECONNECTED TO IV FLUIDS. WARM BLANKETS PROVIDED. PATIENT DENIES ANY FURTHER NEEDS AT THIS TIME. CALL LIGHT AND PERSONAL BELONGINGS WITHIN REACH.
[2024-08-25] MEDS ORDERED: SEVOFLURANE 250 ML BTL INH ONE (11:45)
--- NOTE | 2024-08-25 12:31 | NUR ---
PATIENT SITTING UP IN CHAIR WITH EYES CLOSED. EVEN AND UNLABORED RESPIRATIONS NOTED. CALL LIGHT AND PERSONAL BELONGINGS WITHIN REACH.
--- NOTE | 2024-08-25 13:08 | NUR ---
PATIENT SITTING UP IN CHAIR RESTING. PATIENT DENIES ANY FURTHER NEEDS AT THIS TIME. CALL LIGHT AND PERSONAL BELONGINGS WITHIN REACH.
[2024-08-25] MEDS ORDERED: PIPERACILLIN/TAZOBACTAM 3.375 GM VIAL ONE (13:18)
--- NOTE | 2024-08-25 13:45 | NUR ---
PATIENT IS IN THE CHAIR AT THIS TIME, JOB PLACEMENT SPECIALIST CHARTED VITALS AND O'S PATIENT STILL NPO. CALL LIGHT WITH IN REACH, NOTHING ELSE NEEDED AT THIS TIME.
[2024-08-25] MEDS ORDERED: PIPERACILLIN/TAZOBACTAM 3.375 GM in SODIUM CHLORIDE 0.9% 100 ML IV ONE (14:00)
--- NOTE | 2024-08-25 14:10 | NUR ---
PATIENT IS LYING IN THE CHAIR WITH EYES CLOSED AND RESPIRATIONS ARE EVEN AND UNLABORED. PATIENT OPENS EYES UPON RN ENTERING THE ROOM. ZOSYN INFUSION IS RUNNING AT THIS TIME. PATIENT STATED NO FURTHER NEEDS AT THIS TIME. CALL LIGHT AND PERSONAL BELONGINGS ARE WITHIN REACH.
--- NOTE | 2024-08-25 15:06 | NUR ---
IV SITE FLUSHED WITH 10 ML NORMAL SALINE AND D5LR IS INFUSING AT 85 ML/HR. IV DRESSING IS CLEAN, DRY, AND INTACT. PATIENT IS SITTING IN THE CHAIR. TV IS ON. PATIENT STATED NO FURTHER NEEDS AT THIS TIME. CALL LIGHT AND PERSONAL BELONGINGS ARE WITHIN REACH.
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
--- NOTE | 2024-08-25 15:36 | NUR ---
UR CONCURRENT REVIEW: [facility] [place] ST[place] [facility] DUE TO NEED FOR [facility] TO [facility] FOR UPDATE DISCHARGE TO HOME WHEN STABLE 08/27/24
--- NOTE | 2024-08-25 16:31 | NUR ---
PATIENT IS LYING IN BED WITH HOB ELEVATED. PATIENT WITH EYES CLOSED AND RESPIRATIONS ARE EVEN AND UNLABORED. LR IS INFUSING AT 85 ML/HR. CALL LIGHT AND PERSONAL BELONGINGS ARE WITHIN REACH.
--- NOTE | 2024-08-25 16:47 | NUR ---
PATIENT FOCUS ASSESSMENT COMPLETED. PATIENT IS ON ROOM AIR. LUNG SOUNDS ARE CLEAR BILATERALLY IN UPPER LOBES AND WITH CRACKLES IN BILATERAL BASES. RLL IS ALSO DIMINISHED. PATIENT DENIES SOB. PATIENT IS WITHOUT COMPLAINTS OF PAIN AT THIS TIME. LRD5 INFUSING CONTINUOUSLY AT 85ML/HR. PATIENT DENIES ANY FURTHER NEEDS AT THIS TIME. CALL LIGHT AND PERSONAL BELONGINGS WITHIN REACH.
[2024-08-25] MEDS ORDERED: propofoL 200 MG/20 ML VIAL ONE (16:52)
[2024-08-25] MEDS ORDERED: LIDOCAINE HCL 2% 5 ML SDV ONE (16:52)
[2024-08-25] MEDS ORDERED: ACETAMINOPHEN 1,000 MG/100 ML VIAL ONE (16:52)
[2024-08-25] MEDS ORDERED: ondansetron HCL 4 MG/2 ML VIAL ONE (16:52)
[2024-08-25] MEDS ORDERED: fentaNYL citrate 100 MCG/2 ML VIAL ONE (16:53)
--- NOTE | 2024-08-25 17:09 | NUR ---
PATIENT OFF THE FLOOR FOR SURGERY AT THIS TIME.
[2024-08-25] MEDS ORDERED: droPERidol 5 MG/2 ML VIAL IV PRN (17:45)
[2024-08-25] MEDS ORDERED: fentaNYL citrate 50 MCG/ML SDV IV PRN (17:45)
[2024-08-25] MEDS ORDERED: HYDROmorphone HCL 1 MG/ML SYR IV PRN (17:45)
[2024-08-25] MEDS ORDERED: PROCHLORPERAZINE EDISYLATE 10 MG/2 ML VIAL IV PRN (17:45)
[2024-08-25] MEDS ORDERED: NALOXONE HCL 0.4 MG SYR IV PRN (17:45)
[2024-08-25] MEDS ORDERED: IBLOOD GLUCOSE TEST STRIP 1 EA TEST VI PRN (17:45)
[2024-08-25] MEDS ORDERED: ondansetron HCL 4 MG/2 ML VIAL IV PRN (17:45)
[2024-08-25] MEDS ORDERED: ePHEDrine sulfate 50 MG/ML AMP ONE (17:46)
--- NOTE | 2024-08-25 18:07 | NUR ---
PATIENT OFF THE FLOOR AT THIS TIME IN SURGERY.
--- NOTE | 2024-08-25 18:33 | NUR ---
08/25/241832 Beatrice Waller 182 PT ARRIVED TO PACU ON 6L VIA MASK, CHIN LIFT USED OFF AND ON. RESP EVEN AND UNLABORED. 1825 PT WAKES TO VERBAL STIMULI. O2 REMOVED. 1828 PERIOD OF APNEA NOTED AND O2 DECREASED TO HIGH 80S. 2L NC PLACED. O2 INCREASED TO MID 90S. 1832 PERIODS OF APNEA NOTED OFF AND ON, RN CONTINUES TO WAKE PT OFF AND ON TO ENCOURAGE DEEP BREATHING. HOB INCREASED.
--- NOTE | 2024-08-25 18:35 | NUR ---
PATIENT REMAINS OFF THE FLOOR AT THIS TIME.
--- NOTE | 2024-08-25 19:00 | NUR ---
PATIENT BROUGHT TO FLOOR FROM SURGERY RN. REPORT RECEIVED FROM SURGERY RN. PATIENT RESTING IN BED. DENIES PAIN OR NAUSEA. VS OBTAINED AND RECORDED. PATIENT EDUCATED TO NOT GET OUT OF BED WITHOUT STAFF ASSISTANCE. PATIENT VERBILIZES UNDERSTANDING. BED ALARM ON. CALL LIGHT IN REACH.
--- NOTE | 2024-08-25 20:20 | NUR ---
call light answered, pt up sba to bsc to void. voided 600mls and back to bed. lle eelvated in bed w/ pillows. post op vs collected, elevated bp noted, repeat with similar results-primary rn jimmy made aware. call light in reach.
--- NOTE | 2024-08-25 20:35 | NUR ---
PATIENT RESTING IN BED. SCHEDULED MEDICATION ADMINISTERED. PATIENT REPORTS PAIN IN RIGHT UPPER THIGH. PRN PAIN MEDICATION ADMINSITERED. PATIENT DENIES FURTHER NEEDS AT THIS TIME. CALL LIGHT IN REACH. SANDWICH PROVIDED PER PATIENT REQUEST. PATIENT DENIES NAUSEA AT THIS TIME. KEILA WELL.
--- NOTE | 2024-08-25 21:11 | NUR ---
YOLANDA IS AWAKE SITTING UP IN BED EATING ON A 1L NC. SHE DOES NOT WEAR HOME O2.
--- NOTE | 2024-08-25 21:23 | NUR ---
COINING PRESS OPERATOR OBTAINED VITALS AND I&O AND BLOOD SUGAR. RN NOTIFED OF B/P. PT STATES NO NEEDS AT THIS TIME. CALL LIGHT WITHIN REACH.
--- NOTE | 2024-08-25 21:30 | NUR ---
PRN BP MEDICATION ADMINISTERED FOR ELEVATED BP. PATIENT HAS NO FURTHER NEEDS. CALL LIGHT IN REACH.
--- NOTE | 2024-08-25 22:37 | NUR ---
PATIENT RESTING IN BED. VS OBTAINED AND RECORDED. WOUND CARE COMPLETED ON RLQ PER ORDER. PATIENT KEILA WELL. PATIENT HAS NO FURTHER NEEDS AT THIS TIME. CALL LIGHT IN REACH.
[2024-08-26] VITALS (8 sets, daily range): BP systolic 131–189; BP diastolic 64–85
--- NOTE | 2024-08-26 01:48 | NUR ---
PATIENT RESTING IN BED. VS AND I&Os OBTAINED AND RECORDED. PATIENT UP TO BATHROOM USING 1P SBA TO VOID. PATIENT BACK TO BED. LLE ELEVATED ON 2 PILLOWS. BLE DRESSINGS C/D/I. STANDING WEIGHT OBTAINED AND RECORDED. PATIENT REPORTS 3/10 RIGHT UPPER THIGH - GRAFT SITE - PAIN. PRN PAIN MEDICATION ADMINISTERED PER PATIENT REQUEST. PATIENT HAS NO FURTHER NEEDS. BED ALARM ON. CALL LIGHT IN REACH.
--- NOTE | 2024-08-26 03:30 | NUR ---
PATIENT RESTING IN BED ON BACK WITH EYES CLOSED. RESPIRATIONS EVEN AND UNLABORED. LLE ELEVATED ON 2 PILLOWS. NO FURTHER NEEDS. BED ALARM ON. CALL LIGHT IN REACH.
[2024-08-26 05:20] LABS: BASOPHILS 2.6 % (0-2); HEMATOCRIT 25.5 % (35.0-50.0); HEMOGLOBIN 8.3 g/dL (12.0-18.0); LYMPHOCYTES 35.6 % (24-44); MCH 29.1 (27-36); MCHC 32.6 g/dl (30-36); MCV 89.4 fl (81-99); MONOCYTES 10.4 % (0-12); NEUTROPHILS 46.4 % (39-80); PLATELET COUNT 294 K/uL (140-440); RBC 2.85 M/ul (4.3-5.7)
[2024-08-26 05:35] LABS: ALBUMIN 1.6 g/dL (3.4-5.0); ALBUMIN/GLOBULIN RATIO 0.38 (1.1-2.4); ANION GAP 12.1 (7-21); BILIRUBIN, TOTAL 0.2 mg/dL (0.2-1.0); BUN/CREATININE RATIO 27.79 (6.0-28.6); CREATININE, SERUM 2.77 mg/dL (0.55-1.02); POTASSIUM 5.1 mmol/L (3.5-5.1); PROTEIN, TOTAL 5.8 g/dL (6.4-8.2)
--- NOTE | 2024-08-26 05:36 | NUR ---
DANIEL Zaidi RN ADMINISTERED PRN BP MEDICATION FOR ELEVATED BP AT THIS TIME.
--- NOTE | 2024-08-26 08:17 | NUR ---
PATIENT IN CHAIR AT THIS TIME. PIPE FITTER ASSISTED PATIENT TO CHAIR. CALL LIGHT WITHIN REACH, NO FURTHER NEEDS AT THIS TIME.
--- NOTE | 2024-08-26 09:05 | NUR ---
Patient sitting up in chair watching tv, alert and oriented x4. Patient's legs are elveated at this time. Jose Alfredo wrap dressing to LLE-CDI. Right anterior this has obsite in place, serous/laurita colored fluid noted under dressing, dressing borders are closed/intact. Patient reports she is feeling better today. Pain level 5/10 to legs per patient report. Patient tolerating diet well, q/s urine output. Patient denies needs at this time, personal supplies and call light within reach.
--- NOTE | 2024-08-26 09:55 | NUR ---
GAVE PATIENT RESOURCES FOR [place] [employer]. LET HER KNOW IF SHE SWITCHES SHE CAN USE [facility]SPORT TO AND FROM APPOINTMENTS. GAVE HER PCP NAME. SHE SAYS AUNT MARIANA IS COMING TO GET HER AT TIME OF DISCHARGE. TO FOLLOW UP WITH REG IN A WEEK. PATIENT AGREEABLE AND SAYS SHE CAN FIND A RIDE TO IT. NO FUTHER CM NEEDS AT THIS TIME.
--- NOTE | 2024-08-26 10:34 | NUR ---
PATIENT IN BED AT THIS TIME, REFUSED GETTING IN THE CHAIR, PRINCIPAL RESEARCH ECONOMIST CHARTED VITALS AND I&O'S. CALL LIGHT WITH IN REACH AND NOTHIGN ELSE NEEDED AT THIS TIME.
[2024-08-26] MEDS ORDERED: OXYCODONE HCL5 MG PO (10:38)
[2024-08-26] MEDS ORDERED: METOLAZONE5 MG PO (10:38)
[2024-08-26] MEDS ORDERED: SODIUM BICARBO650 MG PO (10:38)
[2024-08-26] MEDS ORDERED: METFORMIN HCL1000 MG PO (10:39)
[2024-08-26] MEDS ORDERED: SOAANZ40 MG PO ×2 (10:40→10:41)
--- NOTE | 2024-08-26 10:52 | NUR ---
PATIENT HAS TO CALL TO ESTABLISH PCP DUE TO [employer] INSURANCE. [facility] IN [place] ONLY CLINIC TO TAKE THAT INSURANCE. WILL ONLY ESTABLISH PATIENT IF PATIENT CALLS THEM AND GIVES THEM HER INFORMATION AND CHOICE FOR PCP.
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
== END 2024-08-26 12:20 | disposition home or self-care (01) | DRG 982 ==
LOC: ED 15:53 → MS 19:21 → CCU 19:21 → MS 08-02 09:56
PROVIDERS: Emergency Medicine; Family Medicine; Student in an Organized Health Care Education/Training Program; Surgery; ADMIT Student in an Organized Health Care Education/Training Program; ATTEND Student in an Organized Health Care Education/Training Program
PROC: 0HBLXZZ Excision of Left Lower Leg Skin, External Approach (ICD-10-PCS; 2024-08-01)
PROC: 0HBKXZZ Excision of Right Lower Leg Skin, External Approach (ICD-10-PCS; principal; 2024-08-01 14:45)
PROC: 30233N1 Transfusion of Nonautologous Red Blood Cells into Peripheral Vein, Percutaneous Approach (ICD-10-PCS; 2024-08-11)
PROC: 0HRLX73 Replacement of Left Lower Leg Skin with Autologous Tissue Substitute, Full Thickness, External Approach (ICD-10-PCS; 2024-08-25)
PROC: 0HBKXZZ Excision of Right Lower Leg Skin, External Approach (ICD-10-PCS; 2024-08-25)
DX: N17.9 Acute kidney failure, unspecified (principal); E87.1 Hypo-osmolality and hyponatremia; E87.20 Acidosis, unspecified; I96 Gangrene, not elsewhere classified; N39.0 Urinary tract infection, site not specified; Z59.00 Homelessness unspecified; I13.0 Hypertensive heart and chronic kidney disease with heart failure and stage 1 through stage 4 chronic kidney disease, or unspecified chronic kidney disease; T24.002A Burn of unspecified degree of unspecified site of left lower limb, except ankle and foot, initial encounter; T24.001A Burn of unspecified degree of unspecified site of right lower limb, except ankle and foot, initial encounter; T31.0 Burns involving less than 10% of body surface; X11.0XXA Contact with hot water in bath or tub, initial encounter; B96.1 Klebsiella pneumoniae [K. pneumoniae] as the cause of diseases classified elsewhere; B96.5 Pseudomonas (aeruginosa) (mallei) (pseudomallei) as the cause of diseases classified elsewhere; E83.42 Hypomagnesemia; D50.9 Iron deficiency anemia, unspecified; E11.42 Type 2 diabetes mellitus with diabetic polyneuropathy; E87.5 Hyperkalemia; K52.9 Noninfective gastroenteritis and colitis, unspecified; I50.9 Heart failure, unspecified; F17.210 Nicotine dependence, cigarettes, uncomplicated; N18.9 Chronic kidney disease, unspecified; E11.22 Type 2 diabetes mellitus with diabetic chronic kidney disease; Z98.890 Other specified postprocedural states; Z79.899 Other long term (current) drug therapy; Z88.8 Allergy status to other drugs, medicaments and biological substances; D63.1 Anemia in chronic kidney disease
CPT/HCPCS: 01470; 01952; 36415; 51798; 71045; 76705; 80048; 80053; 81001; 82040; 82570; 82803; 83036; 83690; 83735; 83880; 83930; 83935; 84100; 84156; 84300; 84439; 84443; 84484; 85025; 85060; 86850; 86900; 86901; 86922; 87070; 87075; 87077; 87088; 87205; 88304; 88307; 93005; 93010; 93306; 94644; 94762; 97110; 97116; 97161; 97165; 97530; 97535; 99285-25; A9270; J0131; J0360; J0696; J1644; J1650; J1815; J1940; J2003; J2405; J2543; J2704; J3010; J3475; J7030; J7060; J7070; J7121; P9016; P9047